=== PATIENT | female | born 1945 | race Caucasian/White ===

== ENCOUNTER 2021-11-08 05:23 | Inpatient (IN) | payer MEDICARE ==
--- NOTE | 2021-11-08 06:40 | XR ---
EXAM: XR Chest, 1 View CLINICAL HISTORY: ITS.REASON XR Reason: Weakness TECHNIQUE: Frontal view of the chest. COMPARISON: No relevant prior studies available. FINDINGS: Lungs: Mild to moderate peribronchial thickening about the central bronchi. Low lung volumes. No consolidation. Pleural space: Unremarkable. No pneumothorax. Heart: Unremarkable. No cardiomegaly. Mediastinum: Unremarkable. Bones/joints: Unremarkable. IMPRESSION: Findings concerning for bronchitis, which may be infectious or inflammatory etiologies.
[2021-11-08] MEDS ORDERED: fentaNYL (PF) 50 MCG/ML 2 ML AMP IVP STA (07:57)
[2021-11-08] MEDS ORDERED: ONDANSETRON 4 MG/2 ML VIAL IVP STA (08:21)
[2021-11-08] MEDS: MIDODRINE 5 MG TAB PO SCH ×2 (08:42→20:15)
[2021-11-08 09:07] LABS: Anisocytosis Slight; Basophils # (A) 0.1 k/uL (0-0.2); Basophils % (A) 0 %; Eosinophils # (A) 0.1 k/uL (0-0.7); Eosinophils % (A) 0 %; HCT 35.7 % (34.0-46.0); Hypochromasia Moderate; Lymphocytes # (A) 1.5 k/uL (1.0-4.8); Lymphocytes % (A) 9 %; MCH 26.5 pg (25.0-35.0); MCHC 30.8 g/dL (31.0-37.0); MCV 86.1 fL (80.0-100.0); Mean Platelet Volume 8.2; Microcytosis Slight; Monocytes # (A) 0.8 k/uL (0-1.0); Monocytes % (A) 5 %; Neutrophils # (A) 13.7 k/uL (1.3-7.7); Neutrophils % (A) 84 %; Platelet Count 373 k/uL (150-450); RBC 4.15 m/uL (3.80-5.40); RDW 19.3 % (11.5-15.5); WBC 16.4 k/uL (3.8-10.6)
--- NOTE | 2021-11-08 10:47 | ED ---
Weakness HPI - General Chief complaint: Weakness Stated complaint: Weakness, Pain all over Time Seen by Provider: 11/08/21 07:07 Source: patient, family Mode of arrival: wheelchair - History of Present Illness Initial comments: 76-year-old female with past medical history of congestive heart failure, sick sinus syndrome, diabetes, hypothyroid presents the emergency department a ccompanied by her niece. The patient was hospitalized for a month in [place]. She was on a ventilator for exacerbation of heart failure. She had shock and therefore had a central line and was on pressors. Patient then was sent to a rehab facility. Patient called her family members and stated that she was not being taken care of. She was developing bedsores. Family drove to [place] and removed her from the nursing facility. They drove her across the country. They were did have the patient lives an independent apartment however they quickly realized that the patient was unable to ambulate and had incontinence. The patient is completely unable to take care of herself. She was supposed to be taking several medications including Midrin however the patient has not had any of her medications since Saturday. Family requesting assistance and care. - Related Data Home Medications Medication Instructions Recorded Confirmed Acetaminophen [Tylenol] 650 mg PO Q6H PRN 11/08/21 11/08/21 Albuterol Nebulized [Ventolin 1.25 mg INHALATION RT-Q4H PRN 11/08/21 11/08/21 Nebulized (Accuneb)] Docusate [Colace] 100 mg PO HS 11/08/21 11/08/21 Levothyroxine Sodium [Synthroid] 50 mcg PO DAILY 11/08/21 11/08/21 Magnesium Hydroxide [Milk of 2,400 mg PO DAILY PRN 11/08/21 11/08/21 Magnesia] Melatonin 6 mg PO HS 11/08/21 11/08/21 Midodrine [ProAmatine] 5 mg PO AC-TID 11/08/21 11/08/21 Na Phos,M-B/Na Phos,Di-Ba [Fleet 133 ml RECTAL DAILY PRN 11/08/21 11/08/21 Adult] Nystatin 100,000 Unit/gm Powd 1 applic TOPICAL DAILY 11/08/21 11/08/21 [Mycostatin Powder] Ondansetron [Zofran] 4 mg PO Q6H PRN 11/08/21 11/08/21 Pantoprazole Sodium [Protonix] 40 mg PO Q12H 11/08/21 11/08/21 Sennosides [Senokot] 8.6 mg PO HS 11/08/21 11/08/21 bisacodyL [Dulcolax] 10 mg RECTAL DAILY PRN 11/08/21 11/08/21 polyethylene glycoL 3350 [Miralax] 17 gm PO DAILY 11/08/21 11/08/21 Allergies Allergy/AdvReac Type Severity Reaction Status Date / Time Penicillins Allergy Itching Verified 11/08/21 13:55 hydromorphone [From Dilaudid] AdvReac Confusion Verified 11/08/21 13:55 Review of Systems ROS Statement: Those systems with pertinent positive or pertinent negative responses have been documented in the HPI. ROS Other: All systems not noted in ROS Statement are negative. Past Medical History Past Medical History: Asthma, Heart Failure, Diabetes Mellitus, Hypertension, Pulmonary Embolus (PE), Respiratory Disorder, Thyroid Disorder History of Any Multi-Drug Resistant Organisms: None Reported Past Surgical History: Appendectomy, Cholecystectomy, Hysterectomy, Uterine Ablation Additional Past Surgical History / Comment(s): Bladder lift Past Psychological History: No Psychological Hx Reported Smoking Status: Never smoker Past Alcohol Use History: Rare Past Drug Use History: None Reported General Exam General appearance: alert, in no apparent distress Head exam: Present: atraumatic, normocephalic, normal inspection Eye exam: Present: normal appearance, PERRL, EOMI. Absent: scleral icterus, conjunctival injection, periorbital swelling ENT exam: Present: normal exam, mucous membranes moist Neck exam: Present: normal inspection. Absent: tenderness, meningismus, lympha denopathy Respiratory exam: Present: decreased breath sounds. Absent: respiratory distress, wheezes, rales, rhonchi, stridor Cardiovascular Exam: Present: regular rate, normal rhythm, normal heart sounds. Absent: systolic murmur, diastolic murmur, rubs, gallop, clicks GI/Abdominal exam: Present: soft, normal bowel sounds. Absent: distended, tenderness, guarding, rebound, rigid Extremities exam: Present: normal inspection, full ROM, normal capillary refill. Absent: tenderness, pedal edema, joint swelling, calf tenderness Back exam: Present: normal inspection Neurological exam: Present: alert, oriented X3, CN II-XII intact Psychiatric exam: Present: normal affect, normal mood Skin exam: Present: warm, dry, intact, normal color. Absent: rash Course Vital Signs 11/08/21 11/08/21 11/08/21 06:13 07:38 08:28 Temperature 97.5 F L Pulse Rate 90 69 86 Respiratory 18 20 18 Rate Blood Pressure 91/68 97/40 106/47 O2 Sat by Pulse 96 95 96 Oximetry 11/08/21 11/08/21 11/08/21 09:45 10:00 12:07 Temperature 98 F Pulse Rate 80 72 78 Respiratory 18 18 18 Rate Blood Pressure 87/67 94/52 102/57 O2 Sat by Pulse 97 96 96 Oximetry 11/08/21 11/08/21 13:26 17:53 Temperature Pulse Rate 71 90 Respiratory 18 18 Rate Blood Pressure 90/52 90/62 O2 Sat by Pulse 96 91 L Oximetry EKG Findings - EKG Comments: EKG Findings:: EKG demonstrates A. fib with a controlled rate of 100. QRS 121. QTC of 425. Left bundle branch block. No acute ST segment elevations Medical Decision Making - Medical Decision Making Upon arrival patient was placed in room trauma 3. A thorough history and physical exam was performed. I did review the patient's chart that she did bring with her from her nursing facility. IV is established and laboratory studies were conducted which reveal a white count of 16.4. Sodium 132. Creatinine 4.5. Troponin is 0.044. Chest x-ray demonstrates findings concerning for bronchitis. Patient is dosed her Midrin and 2 g of magnesium for her magnesium level of 1.2. Recommended admission and spoke with Dr. Jaimes who agreed to admit the patient. - Lab Data Result diagrams: 11/15/21 08:40 11/12/21 06:20 Lab Results 11/08/21 11/08/21 11/08/21 Range/Units 08:35 08:42 08:42 WBC 16.4 H (3.8-10.6) k/uL RBC 4.15 (3.80-5.40) m/uL Hgb 11.0 L (11.4-16.0) gm/dL Hct 35.7 (34.0-46.0) % MCV 86.1 (80.0-100.0) fL MCH 26.5 (25.0-35.0) pg MCHC 30.8 L (31.0-37.0) g/dL RDW 19.3 H (11.5-15.5) % Plt Count 373 (150-450) k/uL MPV 8.2 Neutrophils % 84 % Lymphocytes % 9 % Monocytes % 5 % Eosinophils % 0 % Basophils % 0 % Neutrophils # 13.7 H (1.3-7.7) k/uL Lymphocytes # 1.5 (1.0-4.8) k/uL Monocytes # 0.8 (0-1.0) k/uL Eosinophils # 0.1 (0-0.7) k/uL Basophils # 0.1 (0-0.2) k/uL Hypochromasia Moderate Anisocytosis Slight Microcytosis Slight PT (9.0-12.0) sec INR (<1.2) APTT (22.0-30.0) sec Sodium (137-145) mmol/L Potassium (3.5-5.1) mmol/L Chloride (98-107) mmol/L Carbon Dioxide (22-30) mmol/L Anion Gap mmol/L BUN (7-17) mg/dL Creatinine (0.52-1.04) mg/dL Est GFR (CKD-EPI)AfAm (>60 ml/min/1.73 sqM) Est GFR (CKD-EPI)NonAf (>60 ml/min/1.73 sqM) Glucose (74-99) mg/dL Plasma Lactic Acid Harley 1.5 (0.7-2.0) mmol/L Calcium (8.4-10.2) mg/dL Magnesium (1.6-2.3) mg/dL Total Bilirubin (0.2-1.3) mg/dL AST (14-36) U/L ALT (4-34) U/L Alkaline Phosphatase (38-126) U/L Troponin I (0.000-0.034) ng/mL NT-Pro-B Natriuret Pep pg/mL Total Protein (6.3-8.2) g/dL Albumin (3.5-5.0) g/dL Coronavirus (PCR) Not Detected (Not Detectd) 11/08/21 11/08/21 11/08/21 Range/Units 08:42 08:42 10:45 WBC (3.8-10.6) k/uL RBC (3.80-5.40) m/uL Hgb (11.4-16.0) gm/dL Hct (34.0-46.0) % MCV (80.0-100.0) fL MCH (25.0-35.0) pg MCHC (31.0-37.0) g/dL RDW (11.5-15.5) % Plt Count (150-450) k/uL MPV Neutrophils % % Lymphocytes % % Monocytes % % Eosinophils % % Basophils % % Neutrophils # (1.3-7.7) k/uL Lymphocytes # (1.0-4.8) k/uL Monocytes # (0-1.0) k/uL Eosinophils # (0-0.7) k/uL Basophils # (0-0.2) k/uL Hypochromasia Anisocytosis Microcytosis PT 11.1 (9.0-12.0) sec INR 1.0 (<1.2) APTT 23.5 (22.0-30.0) sec Sodium (137-145) mmol/L Potassium (3.5-5.1) mmol/L Chloride (98-107) mmol/L Carbon Dioxide (22-30) mmol/L Anion Gap mmol/L BUN (7-17) mg/dL Creatinine (0.52-1.04) mg/dL Est GFR (CKD-EPI)AfAm (>60 ml/min/1.73 sqM) Est GFR (CKD-EPI)NonAf (>60 ml/min/1.73 sqM) Glucose (74-99) mg/dL Plasma Lactic Acid Harley (0.7-2.0) mmol/L Calcium (8.4-10.2) mg/dL Magnesium (1.6-2.3) mg/dL Total Bilirubin (0.2-1.3) mg/dL AST (14-36) U/L ALT (4-34) U/L Alkaline Phosphatase (38-126) U/L Troponin I 0.044 H* (0.000-0.034) ng/mL NT-Pro-B Natriuret Pep 909 pg/mL Total Protein (6.3-8.2) g/dL Albumin (3.5-5.0) g/dL Coronavirus (PCR) (Not Detectd) 11/08/21 Range/Units 10:45 WBC (3.8-10.6) k/uL RBC (3.80-5.40) m/uL Hgb (11.4-16.0) gm/dL Hct (34.0-46.0) % MCV (80.0-100.0) fL MCH (25.0-35.0) pg MCHC (31.0-37.0) g/dL RDW (11.5-15.5) % Plt Count (150-450) k/uL MPV Neutrophils % % Lymphocytes % % Monocytes % % Eosinophils % % Basophils % % Neutrophils # (1.3-7.7) k/uL Lymphocytes # (1.0-4.8) k/uL Monocytes # (0-1.0) k/uL Eosinophils # (0-0.7) k/uL Basophils # (0-0.2) k/uL Hypochromasia Anisocytosis Microcytosis PT (9.0-12.0) sec INR (<1.2) APTT (22.0-30.0) sec Sodium 132 L (137-145) mmol/L Potassium 4.3 (3.5-5.1) mmol/L Chloride 86 L (98-107) mmol/L Carbon Dioxide 31 H (22-30) mmol/L Anion Gap 15 mmol/L BUN 85 H (7-17) mg/dL Creatinine 4.52 H (0.52-1.04) mg/dL Est GFR (CKD-EPI)AfAm 10 (>60 ml/min/1.73 sqM) Est GFR (CKD-EPI)NonAf 9 (>60 ml/min/1.73 sqM) Glucose 120 H (74-99) mg/dL Plasma Lactic Acid Harley (0.7-2.0) mmol/L Calcium 9.0 (8.4-10.2) mg/dL Magnesium 1.2 L (1.6-2.3) mg/dL Total Bilirubin 0.6 (0.2-1.3) mg/dL AST 35 (14-36) U/L ALT 21 (4-34) U/L Alkaline Phosphatase 85 (38-126) U/L Troponin I (0.000-0.034) ng/mL NT-Pro-B Natriuret Pep pg/mL Total Protein 7.5 (6.3-8.2) g/dL Albumin 4.0 (3.5-5.0) g/dL Coronavirus (PCR) (Not Detectd) Disposition Clinical Impression: TESS (acute kidney injury), Chest pain, Hypomagnesemia Disposition: ADMITTED IP TO THIS [facility] Condition: Stable Is patient prescribed a controlled substance at d/c from ED?: No Time of Disposition: 12:30 Decision to Admit Reason: Admit from EC Decision Date: 11/08/21 Decision Time: 12:30
[2021-11-08 11:35] LABS: Magnesium 1.2 mg/dL (1.6-2.3); Potassium 4.3 mmol/L (3.5-5.1); Total Bilirubin 0.6 mg/dL (0.2-1.3); Total Protein 7.5 g/dL (6.3-8.2)
[2021-11-08 11:51] LABS: Partial Thromboplastin Time 23.5 sec (22.0-30.0); Prothrombin Time 11.1 sec (9.0-12.0)
[2021-11-08] MEDS ORDERED: MAGNESIUM SULFATE-D5W PMX 1 GM in DEXTROSE/WATER 1 100ML.BAG IVPB ONE ×2 (11:58→19:00)
[2021-11-08] MEDS ORDERED: NALOXONE 0.4 MG/ML 1 ML VIAL IV PRN ×2 (12:30→17:06)
[2021-11-08] MEDS ORDERED: MAGNESIUM HYDROXIDE 2,400 MG/10 ML CUP PO PRN (15:37)
[2021-11-08] MEDS ORDERED: bisacodyL 10 MG SUPP RECTAL PRN (15:37)
[2021-11-08] MEDS ORDERED: NA PHOS,M-B/NA PHOS,DI-BA 133 ML ENEMA RECTAL PRN (15:37)
[2021-11-08] MEDS ORDERED: PANTOPRAZOLE 40 MG TABLET PO SCH (16:00)
--- NOTE | 2021-11-08 17:11 | P.HPIM ---
History of Present Illness H&P Date: 11/08/21 Chief Complaint: weakness 76-year-old female with past medical history of paroxysmal atrial fibrillation, congestive heart failure, sick sinus syndrome, diabetes, hypothyroid presents the emergency department accompanied by her niece. The patient was hospitalized for a month in [place]. After that she went to rehab. According to the family members they thought that she was not treated well in the rehab in [place] so they brought her to [place] by car from [place]. She was developing bedsores in the rehab..They quickly realized that the patient was unable to ambulate and had incontinence. She was completely unable to take care of herself. Therefore she was brought to the emergency department During the recent hospitalization she was treated for acute hypoxemic respiratory failure secondary to combination of congestive heart failure, pneumonia, obesity hypoventilation syndrome and tracheomalacia. Patient was intubated on 09/15 extubated on 09/20. She was hypotensive, requiring central line placement and pressors. She had an echocardiogram that showed normal EF. According to the records she was treated with steroids, antibiotics and bronchodilators. Patient was also diagnosed with right mandibular tooth infection, acute colitis and UTI. Laboratory evaluation in the emergency department revealed WBC count 16,000, sodium 132, creatinine 4.5, magnesium 1.2, troponin 0.044 and 0.040 upon repeat. According to the records her creatinine was normal during the last hospitalization. Past Medical History Past Medical History: Asthma, Heart Failure, Diabetes Mellitus, Hypertension, Pulmonary Embolus (PE), Respiratory Disorder, Thyroid Disorder History of Any Multi-Drug Resistant Organisms: None Reported Past Surgical History: Appendectomy, Cholecystectomy, Hysterectomy, Uterine Ablation Additional Past Surgical History / Comment(s): Bladder lift Past Psychological History: No Psychological Hx Reported Smoking Status: Never smoker Past Alcohol Use History: Rare Past Drug Use History: None Reported Medications and Allergies Home Medications Medication Instructions Recorded Confirmed Type Acetaminophen [Tylenol] 650 mg PO Q6H PRN 11/08/21 11/08/21 History Albuterol Nebulized [Ventolin 1.25 mg INHALATION RT-Q4H PRN 11/08/21 11/08/21 History Nebulized (Accuneb)] Docusate [Colace] 100 mg PO HS 11/08/21 11/08/21 History Levothyroxine Sodium [Synthroid] 50 mcg PO DAILY 11/08/21 11/08/21 History Magnesium Hydroxide [Milk of 2,400 mg PO DAILY PRN 11/08/21 11/08/21 History Magnesia] Melatonin 6 mg PO HS 11/08/21 11/08/21 History Midodrine [ProAmatine] 5 mg PO AC-TID 11/08/21 11/08/21 History Na Phos,M-B/Na Phos,Di-Ba [Fleet 133 ml RECTAL DAILY PRN 11/08/21 11/08/21 History Adult] Nystatin 100,000 Unit/gm Powd 1 applic TOPICAL DAILY 11/08/21 11/08/21 History [Mycostatin Powder] Ondansetron [Zofran] 4 mg PO Q6H PRN 11/08/21 11/08/21 History Pantoprazole Sodium [Protonix] 40 mg PO Q12H 11/08/21 11/08/21 History Sennosides [Senokot] 8.6 mg PO HS 11/08/21 11/08/21 History bisacodyL [Dulcolax] 10 mg RECTAL DAILY PRN 11/08/21 11/08/21 History polyethylene glycoL 3350 [Miralax] 17 gm PO DAILY 11/08/21 11/08/21 History Allergies Allergy/AdvReac Type Severity Reaction Status Date / Time Penicillins Allergy Itching Verified 11/08/21 13:55 hydromorphone [From Dilaudid] AdvReac Confusion Verified 11/08/21 13:55 Physical Exam Vitals: Vital Signs Temp Pulse Resp BP Pulse Ox 11/08/21 13:26 71 18 90/52 96 11/08/21 12:07 98 F 78 18 102/57 96 11/08/21 10:00 72 18 94/52 96 11/08/21 09:45 80 18 87/67 97 11/08/21 08:28 86 18 106/47 96 11/08/21 07:38 69 20 97/40 95 11/08/21 06:13 97.5 F L 90 18 91/68 96 Intake and Output 11/08/21 11/08/21 11/08/21 06:59 14:59 22:59 Other: Weight 89.63 kg Constitutional: No acute distress, conversant, pleasant Eyes:Anicteric sclerae, moist conjunctiva, no lid-lag, PERRLA, ENMT: Oropharynx clear, no erythema, exudates Neck: Supple, FROM, no masses, or JVD, No carotid bruits, No thyromegaly Lungs: Clear to auscultation, Clear to percussion, Normal respiratory effort, no accessory muscle use Cardiovascular: Heart regular in rate and rhythm, No murmurs, gallops, or rubs, No peripheral edema Abdominal: Soft, Nontender, no guarding, rebound or rigidity, Normoactive bowel sounds, No hepatomegaly, No splenomegaly, No palpable mass Skin: Normal temperature, tone, texture, turgor, no induration, No subcutaneous nodules, No rash, lesions, No ulcers Extremities: No digital cyanosis, No clubbing, Pedal pulses intact and symmetrical, Radial pulses intact and symmetrical, No calf tenderness Psychiatric: Alert and oriented to person, place and time, appropriate affect, intact judgement Neuro: Muscles Strength 5/5 in all 4 extremities, Sensation to light touch grossly present throughout, Cranial nerves II-XII grossly intact, no focal sensory deficits Results CBC & Chem 7: 11/08/21 08:42 11/08/21 10:45 Labs: Abnormal Lab Results - Last 24 Hours (Table) 11/08/21 11/08/21 11/08/21 Range/Units 08:42 08:42 10:45 WBC 16.4 H (3.8-10.6) k/uL Hgb 11.0 L (11.4-16.0) gm/dL MCHC 30.8 L (31.0-37.0) g/dL RDW 19.3 H (11.5-15.5) % Neutrophils # 13.7 H (1.3-7.7) k/uL Sodium 132 L (137-145) mmol/L Chloride 86 L (98-107) mmol/L Carbon Dioxide 31 H (22-30) mmol/L BUN 85 H (7-17) mg/dL Creatinine 4.52 H (0.52-1.04) mg/dL Glucose 120 H (74-99) mg/dL Magnesium 1.2 L (1.6-2.3) mg/dL Troponin I 0.044 H* (0.000-0.034) ng/mL 11/08/21 Range/Units 13:13 WBC (3.8-10.6) k/uL Hgb (11.4-16.0) gm/dL MCHC (31.0-37.0) g/dL RDW (11.5-15.5) % Neutrophils # (1.3-7.7) k/uL Sodium (137-145) mmol/L Chloride (98-107) mmol/L Carbon Dioxide (22-30) mmol/L BUN (7-17) mg/dL Creatinine (0.52-1.04) mg/dL Glucose (74-99) mg/dL Magnesium (1.6-2.3) mg/dL Troponin I 0.040 H* (0.000-0.034) ng/mL Assessment and Plan Plan: Acute kidney injury Likely secondary to the travel/dehydration IV fluids Consult nephrology Follow renal function in a.m. Sick sinus syndrome, history of atrial fibrillation Unclear why patient is not on anticoagulation Outpatient cardiology follow-up Heart rate currently stable Diabetes type 2 Hold oral hypoglycemics Sliding-scale insulin General weakness/adult failure to thrive PT and OT Chronic Asthma Hypertension, Hypothyroidism All stable Resume meds DVT prophylaxis Heparin subcu Admit to inpatient, expected length of stay more than 2 midnights
[2021-11-08] MEDS: SODIUM CHLORIDE 0.9% 1,000 ML IV SCH (20:15)
[2021-11-08] MEDS: PANTOPRAZOLE 40 MG TABLET PO SCH (20:15)
[2021-11-08 20:59] LABS: Glucose,Whole Blood 105 mg/dL (70-110)
[2021-11-08] MEDS: MELATONIN 3 MG TABLET PO SCH (21:46)
[2021-11-08] MEDS: DOCUSATE 100 MG CAP PO SCH (21:46)
[2021-11-08] MEDS: SENNOSIDES 8.6 MG TAB PO SCH (21:46)
[2021-11-08] MEDS ORDERED: SODIUM CHLORIDE 0.9% 500 ML 500 ML IV ONE (22:41)
[2021-11-09] MEDS ORDERED: HEPARIN SODIUM,PORCINE 5,000 UNIT/ML 1 ML VIAL SQ SCH
[2021-11-09] MEDS: HEPARIN SODIUM,PORCINE/PF 5,000 UNIT/0.5 ML SYRINGE SQ SCH ×4 (00:37→23:53)
[2021-11-09 05:53] LABS: Glucose,Whole Blood 99 mg/dL (70-110)
[2021-11-09] MEDS: PANTOPRAZOLE 40 MG TABLET PO SCH ×2 (06:12→17:57)
[2021-11-09] MEDS: LEVOTHYROXINE 50 MCG TAB PO SCH (06:12)
[2021-11-09] MEDS: MIDODRINE 5 MG TAB PO SCH ×3 (06:12→17:59)
[2021-11-09] MEDS: SODIUM CHLORIDE 0.9% 1,000 ML IV SCH ×3 (07:02→20:53)
--- NOTE | 2021-11-09 08:45 | US ---
EXAMINATION TYPE: US kidneys/renal and bladder DATE OF EXAM: 11/09/2021 COMPARISON: No relevant comparison studies at this location. CLINICAL HISTORY: tess. TESS EXAM MEASUREMENTS: Right Kidney: 11.1 x 6.5 x 5.4 cm Left Kidney: 10.9 x 5.5 x 4.9 cm Exam is very limited due to body habitus and overlying bowel gas. Right Kidney: Hypoechoic area seen with some internal echoes lower pole: 1.8 x 1.9 x 1.8 cm. Hyperech oic focus seen on the border of hypoechoic area: 0.4 x 0.3 x 0.1 cm. Left Kidney: Limited visibility. Hypoechoic area seen laterally 1.3 x 1.2 x 1.0 cm. Bladder: Appears anechoic. Anechoic area seen extending toward the left of the bladder-possible diver ticulum?- measures 1.7 x 1.3 x 1.5 cm. Bilateral Jets seen: Not during exam. IMPRESSION: 1. Another may be a cyst with calcification within nor within the wall of the right kidney. Small cys t may be on the left kidney. 2. Suspected urinary bladder diverticulum. 3. Consider CT for additional evaluation
[2021-11-09] MEDS: polyethylene glycoL 3350 17 GM POWD.PACK PO SCH (09:10)
[2021-11-09] MEDS ORDERED: SODIUM CHLORIDE 0.9% 1,000 ML IV ONE (09:16)
--- NOTE | 2021-11-09 09:17 | P.NPCON ---
History of Present Illness - Reason for Consult acute renal failure - History of Present Illness Reason for consultation: Acute kidney injury History of present illness: Patient is a 76-year-old female seen in consultation for acute kidney injury. Unknown baseline renal function. Creatinine was 4.21 admission yesterday. Patient was recently admitted with septic shock and respiratory failure in [place]. She subsequently went to rehab facility but left the rehab as she was not happy with the care. Patient then came to [place] and came to the hospital as she was unable to care for herself. Patient has been voiding. She is incontinent. Blood pressure has been low in the systolic 70s. She did receive 1 L bolus of normal saline in the ER. However she did not receive much fluids overnight due to no IV access. She now does have an IV access and is receiving normal saline at 1 25 mL an hour. I don't see any nonsteroidals or diuretics in her home medication list. States she takes Tylenol if needed. No history of diabetes. States she had a daughter who was a diabetic and required renal replacement therapy but has now . Vital signs are stable. Blood pressure in the lower side. General: Awake. No acute distress. HEENT: Head exam is unremarkable. LUNGS: Breath sounds decreased. HEART: Rate and Rhythm are regular. ABDOMEN: Soft, no distention. EXTREMITITES: No edema. Past Medical History Past Medical History: Asthma, Heart Failure, Diabetes Mellitus, Hypertension, Pulmonary Embolus (PE), Respiratory Disorder, Thyroid Disorder History of Any Multi-Drug Resistant Organisms: None Reported Past Surgical History: Appendectomy, Cholecystectomy, Hysterectomy, Uterine Ablation Additional Past Surgical History / Comment(s): Bladder lift Past Anesthesia/Blood Transfusion Reactions: No Reported Reaction Past Psychological History: No Psychological Hx Reported Smoking Status: Never smoker Past Alcohol Use History: Rare Past Drug Use History: None Reported Medications and Allergies Home Medications Medication Instructions Recorded Confirmed Type Acetaminophen [Tylenol] 650 mg PO Q6H PRN 11/08/21 11/08/21 History Albuterol Nebulized [Ventolin 1.25 mg INHALATION RT-Q4H PRN 11/08/21 11/08/21 History Nebulized (Accuneb)] Docusate [Colace] 100 mg PO HS 11/08/21 11/08/21 History Levothyroxine Sodium [Synthroid] 50 mcg PO DAILY 11/08/21 11/08/21 History Magnesium Hydroxide [Milk of 2,400 mg PO DAILY PRN 11/08/21 11/08/21 History Magnesia] Melatonin 6 mg PO HS 11/08/21 11/08/21 History Midodrine [ProAmatine] 5 mg PO AC-TID 11/08/21 11/08/21 History Na Phos,M-B/Na Phos,Di-Ba [Fleet 133 ml RECTAL DAILY PRN 11/08/21 11/08/21 History Adult] Nystatin 100,000 Unit/gm Powd 1 applic TOPICAL DAILY 11/08/21 11/08/21 History [Mycostatin Powder] Ondansetron [Zofran] 4 mg PO Q6H PRN 11/08/21 11/08/21 History Pantoprazole Sodium [Protonix] 40 mg PO Q12H 11/08/21 11/08/21 History Sennosides [Senokot] 8.6 mg PO HS 11/08/21 11/08/21 History bisacodyL [Dulcolax] 10 mg RECTAL DAILY PRN 11/08/21 11/08/21 History polyethylene glycoL 3350 [Miralax] 17 gm PO DAILY 11/08/21 11/08/21 History Allergies Allergy/AdvReac Type Severity Reaction Status Date / Time Penicillins Allergy Itching Verified 11/08/21 13:55 hydromorphone [From Dilaudid] AdvReac Confusion Verified 11/08/21 13:55 Physical Exam Vitals: Vital Signs Temp Pulse Pulse Pulse Resp BP BP 11/09/21 08:44 98.3 F 74 17 98/51 11/09/21 03:49 97.2 F L 60 14 78/52 11/09/21 00:00 97.1 F L 60 14 74/58 11/08/21 22:00 64 72/42 11/08/21 21:00 97.1 F L 64 14 78/42 11/08/21 20:00 64 14 11/08/21 17:53 90 18 90/62 11/08/21 13:26 71 18 90/52 11/08/21 12:07 98 F 78 18 102/57 11/08/21 10:00 72 18 94/52 11/08/21 09:45 80 18 87/67 Pulse Ox 11/09/21 08:44 97 11/09/21 03:49 97 11/09/21 00:00 93 L 11/08/21 22:00 11/08/21 21:00 92 L 11/08/21 20:00 11/08/21 17:53 91 L 11/08/21 13:26 96 11/08/21 12:07 96 11/08/21 10:00 96 11/08/21 09:45 97 Intake and Output 11/08/21 11/09/21 11/09/21 22:59 06:59 14:59 Intake Total 550 20 Balance 550 20 Intake: IV 10 20 Invasive Line 1 10 Invasive Line 2 10 Invasive Line 3 10 Oral 540 Other: Voiding Method External Catheter Diaper Weight 89.63 kg Results - Lab Results Most recent lab results Calcium 9.0 mg/dL (8.4-10.2) 11/08/21 10:45 Magnesium 1.2 mg/dL (1.6-2.3) L 11/08/21 10:45 11/08/21 08:42 11/08/21 10:45 Assessment and Plan Plan: Assessment: 1. Acute kidney injury secondary to ATN secondary to hypotension. Creatinine 4.52 admission. Unknown baseline renal function. No hydronephrosis noted on kidney ultrasound. 2. Recent sepsis in September 2021. 3. History of A. fib. 4. History of CHF. Unknown ejection fraction. 5. Hypomagnesemia from poor intake. Replaced. Plan: Maintain IV fluids. Strict is and os. Follow-up cortisol level. 1 L bolus normal saline now. Avoid nephrotoxins. Continue to monitor renal function and urine output. Follow-up morning labs. Check UA. Increase dose of midodrine. Thank you for the consultation. I will continue to follow the patient with you during her hospital stay.
[2021-11-09 09:18] LABS: Amorphous Sediment,Urine Rare /hpf; Appearance,Urine Cloudy (Clear); Bacteria,Urine Many /hpf; Bilirubin,Urine 1+ (Negative); Blood,Urine Trace (Negative); Color,Urine Yellow; Glucose,Urine (UA) Negative (Negative); Hyaline Casts,Urine 12 /lpf (0-2); Ketones,Urine Negative (Negative); Leukocyte Esterase,Urine Large (Negative); Mucus,Urine Rare /hpf; Nitrite,Urine Negative (Negative); PH, Urine 5.5 (5.0-8.0); Protein,Urine 1+ (Negative); RBC,Urine 11 /hpf (0-5); Specific Gravity,Urine 1.017 (1.001-1.035); Squamous Epithelial Cell,Urine 2 /hpf (0-4); WBC,Urine 79 /hpf (0-5)
[2021-11-09 10:48] LABS: Anisocytosis Slight; Basophils # (A) 0.2 k/uL (0-0.2); Basophils % (A) 2 %; Eosinophils # (A) 0.1 k/uL (0-0.7); Eosinophils % (A) 1 %; HCT 31.6 % (34.0-46.0); HGB 9.6 gm/dL (11.4-16.0); Hypochromasia Marked; Lymphocytes # (A) 0.8 k/uL (1.0-4.8); Lymphocytes % (A) 8 %; MCH 26.9 pg (25.0-35.0); MCHC 30.5 g/dL (31.0-37.0); MCV 88.4 fL (80.0-100.0); Mean Platelet Volume 8.4; Monocytes # (A) 0.5 k/uL (0-1.0); Monocytes % (A) 5 %; Neutrophils # (A) 8.4 k/uL (1.3-7.7); Neutrophils % (A) 83 %; Platelet Count 264 k/uL (150-450); RBC 3.58 m/uL (3.80-5.40); RDW 19.2 % (11.5-15.5); WBC 10.1 k/uL (3.8-10.6)
[2021-11-09 11:02] LABS: Calcium 7.5 mg/dL (8.4-10.2); Magnesium 2.1 mg/dL (1.6-2.3); Phosphorus 3.2 mg/dL (2.5-4.5); Potassium 3.9 mmol/L (3.5-5.1)
[2021-11-09 12:05] LABS: Glucose,Whole Blood 94 mg/dL (70-110)
[2021-11-09] MEDS: oxyCODONE-APAP 5-325MG 1 EACH TAB PO PRN ×2 (12:05→23:53)
--- NOTE | 2021-11-09 14:09 | IR ---
PICC LINE PLACEMENT: HISTORY: Infection requiring long-term antibiotic therapy PROCEDURE: Ultrasound and fluoroscopic guidance of PICC line placement. COMPLICATIONS: None ANESTHESIA: 1. 1% Lidocaine locally. FINDINGS/TECHNIQUE: The procedure was explained to the patient. The risks, complications, benefits and alternatives were discussed and any questions were answered. Informed consent was obtained. The patient was placed supine on the fluoroscopic table and prepped and draped in the usual sterile fash ion. Utilizing a 21 gauge needle and sonographic and fluoroscopic guidance, access in the left basi lic vein was achieved and there is placement of a 0.018 guidewire. The vein is patent. A 4-F sheath was placed over the guidewire. The guidewire and dilator were removed and a 4-F. PICC line was plac ed through the sheath with the tip at the level of the SVC. The sheath was removed, the catheter was flushed and sutured into position. The patient was stable throughout the procedure and remained sta ble upon discharge from the Department of Radiology. The vein puncture was patent under ultrasound. A avelar scale image was obtained to document patency of the vein punctured. All elements of the maximal barrier technique were utilized. FLUOROSCOPY TIME: 0.1 minutes and one image submitted. IMPRESSION: Successful PICC line placement under ultrasound and fluoroscopic guidance.
--- NOTE | 2021-11-09 14:43 | P.PN ---
Subjective Progress Note Date: 11/09/21 Principal diagnosis: weakness Patient is able to move her legs today. She is feeling stronger. No chest pain or sob. No n/v. no fevers. She did admit to dysuria prior to rios cath insertion. Objective - Vital Signs Vital signs: Vital Signs Temp 97.8 F 11/09/21 11:59 Pulse 67 11/09/21 11:59 Resp 24 11/09/21 11:59 BP 95/45 11/09/21 11:59 Pulse Ox 94 L 11/09/21 11:59 FiO2 Intake & Output 11/08/21 11/09/21 11/09/21 18:59 06:59 18:59 Intake Total 570 1060 Balance 570 1060 Weight 89.63 kg 89.63 kg Intake: IV 30 Invasive Line 1 10 Invasive Line 2 10 Invasive Line 3 10 Oral 540 1060 Other: Voiding Method Diaper Indwelling Catheter - Exam Constitutional: No acute distress, conversant, pleasant Eyes:Anicteric sclerae, moist conjunctiva, no lid-lag, PERRLA, ENMT: Oropharynx clear, no erythema, exudates Neck: Supple, FROM, no masses, or JVD, No carotid bruits, No thyromegaly Lungs: Clear to auscultation, Clear to percussion, Normal respiratory effort, no accessory muscle use Cardiovascular: Heart regular in rate and rhythm, No murmurs, gallops, or rubs, No peripheral edema Abdominal: Soft, Nontender, no guarding, rebound or rigidity, Normoactive bowel sounds, No hepatomegaly, No splenomegaly, No palpable mass Skin: Normal temperature, tone, texture, turgor, no induration, No subcutaneous nodules, No rash, lesions, No ulcers Extremities: No digital cyanosis, No clubbing, Pedal pulses intact and symmetrical, Radial pulses intact and symmetrical, No calf tenderness Psychiatric: Alert and oriented to person, place and time, appropriate affect, intact judgement Neuro: general weakness - Labs CBC & Chem 7: 11/09/21 10:06 11/09/21 10:33 Labs: Abnormal Lab Results - Last 24 Hours (Table) 11/08/21 11/09/21 11/09/21 Range/Units 16:28 09:04 10:06 RBC 3.58 L (3.80-5.40) m/uL Hgb 9.6 L (11.4-16.0) gm/dL Hct 31.6 L (34.0-46.0) % MCHC 30.5 L (31.0-37.0) g/dL RDW 19.2 H (11.5-15.5) % Neutrophils # 8.4 H (1.3-7.7) k/uL Lymphocytes # 0.8 L (1.0-4.8) k/uL Sodium (137-145) mmol/L Chloride (98-107) mmol/L BUN (7-17) mg/dL Creatinine (0.52-1.04) mg/dL Calcium (8.4-10.2) mg/dL Troponin I 0.053 H* (0.000-0.034) ng/mL Urine Appearance Cloudy H (Clear) Urine Protein 1+ H (Negative) Urine Blood Trace H (Negative) Urine Bilirubin 1+ H (Negative) Ur Leukocyte Esterase Large H (Negative) Urine RBC 11 H (0-5) /hpf Urine WBC 79 H (0-5) /hpf Amorphous Sediment Rare H (None) /hpf Urine Bacteria Many H (None) /hpf Hyaline Casts 12 H (0-2) /lpf Urine Mucus Rare H (None) /hpf 11/09/21 Range/Units 10:33 RBC (3.80-5.40) m/uL Hgb (11.4-16.0) gm/dL Hct (34.0-46.0) % MCHC (31.0-37.0) g/dL RDW (11.5-15.5) % Neutrophils # (1.3-7.7) k/uL Lymphocytes # (1.0-4.8) k/uL Sodium 132 L (137-145) mmol/L Chloride 92 L (98-107) mmol/L BUN 85 H (7-17) mg/dL Creatinine 3.49 H (0.52-1.04) mg/dL Calcium 7.5 L (8.4-10.2) mg/dL Troponin I (0.000-0.034) ng/mL Urine Appearance (Clear) Urine Protein (Negative) Urine Blood (Negative) Urine Bilirubin (Negative) Ur Leukocyte Esterase (Negative) Urine RBC (0-5) /hpf Urine WBC (0-5) /hpf Amorphous Sediment (None) /hpf Urine Bacteria (None) /hpf Hyaline Casts (0-2) /lpf Urine Mucus (None) /hpf Assessment and Plan Plan: Acute kidney injury Improving Likely secondary to the travel/dehydration IV fluids Nephrology following Follow renal function in a.m. Renal cysts on US Consult urology Sick sinus syndrome, history of atrial fibrillation Unclear why patient is not on anticoagulation Outpatient cardiology follow-up Heart rate currently stable Diabetes type 2 Controlled Hold oral hypoglycemics Sliding-scale insulin Hypomagnesemia Replaced General weakness/adult failure to thrive PT and OT Chronic Asthma Hypertension, Hypothyroidism All stable Resume meds DVT prophylaxis Heparin subcu
[2021-11-09] MEDS: ACETAMINOPHEN TAB 325 MG TAB PO PRN (15:16)
[2021-11-09 16:54] LABS: Glucose,Whole Blood 110 mg/dL (70-110)
[2021-11-09] MEDS: ONDANSETRON 4 MG/2 ML VIAL IVP PRN (18:00)
--- NOTE | 2021-11-09 19:43 | P.GSCN ---
History of Present Illness Consult date: 11/09/21 Reason for Consult: Renal cysts Requesting physician: Corwin Apple History of present illness: The patient is a 76-year-old white female with multiple medical problems, including atrial fibrillation, CHF, sick sinus syndrome, diabetes mellitus, and hypothyroidism. She was hospitalized for a month in [place] prior to returning to [place]. During that hospitalization she was treated for acute hypoxemic respiratory failure secondary to combination of congestive heart failure, pneumonia, obesity hypoventilation syndrome and tracheomalacia, requiring mechanical ventilation. She was hypotensive, requiring central line placement and vasopressors. She was also diagnosed with right mandibular tooth infection, acute colitis and a UTI. Current laboratory studies show renal insufficiency. Renal ultrasound was obtained. The kidneys were poorly visualized, but bilateral renal hypodensities were seen suggestive of cysts, one of which may be calcified. Additionally, ultrasound was suggestive of a bladder diverticulum. The patient denies any prior history of urolithiasis. She has required treatment for recurrent UTIs throughout her lifetime. This required hospitalization on 2 occasions when she was in her 20s. She currently has a Perez catheter in place to monitor urine output. She has not recently experienced dysuria, and she denies a history of hematuria. She has experienced urinary urgency incontinence. Review of Systems - Constitutional Reports weakness - Genitourinary Genitourinary: Reports urge incontinence Past Medical History Past Medical History: Asthma, Heart Failure, Diabetes Mellitus, Hypertension, Pulmonary Embolus (PE), Respiratory Disorder, Thyroid Disorder History of Any Multi-Drug Resistant Organisms: None Reported Past Surgical History: Appendectomy, Cholecystectomy, Hysterectomy, Uterine Ablation Additional Past Surgical History / Comment(s): Bladder lift Past Anesthesia/Blood Transfusion Reactions: No Reported Reaction Past Psychological History: No Psychological Hx Reported Smoking Status: Never smoker Past Alcohol Use History: Rare Past Drug Use History: None Reported Medications and Allergies Home Medications Medication Instructions Recorded Confirmed Type Acetaminophen [Tylenol] 650 mg PO Q6H PRN 11/08/21 11/08/21 History Albuterol Nebulized [Ventolin 1.25 mg INHALATION RT-Q4H PRN 11/08/21 11/08/21 History Nebulized (Accuneb)] Docusate [Colace] 100 mg PO HS 11/08/21 11/08/21 History Levothyroxine Sodium [Synthroid] 50 mcg PO DAILY 11/08/21 11/08/21 History Magnesium Hydroxide [Milk of 2,400 mg PO DAILY PRN 11/08/21 11/08/21 History Magnesia] Melatonin 6 mg PO HS 11/08/21 11/08/21 History Midodrine [ProAmatine] 5 mg PO AC-TID 11/08/21 11/08/21 History Na Phos,M-B/Na Phos,Di-Ba [Fleet 133 ml RECTAL DAILY PRN 11/08/21 11/08/21 History Adult] Nystatin 100,000 Unit/gm Powd 1 applic TOPICAL DAILY 11/08/21 11/08/21 History [Mycostatin Powder] Ondansetron [Zofran] 4 mg PO Q6H PRN 11/08/21 11/08/21 History Pantoprazole Sodium [Protonix] 40 mg PO Q12H 11/08/21 11/08/21 History Sennosides [Senokot] 8.6 mg PO HS 11/08/21 11/08/21 History bisacodyL [Dulcolax] 10 mg RECTAL DAILY PRN 11/08/21 11/08/21 History polyethylene glycoL 3350 [Miralax] 17 gm PO DAILY 11/08/21 11/08/21 History Allergies Allergy/AdvReac Type Severity Reaction Status Date / Time Penicillins Allergy Itching Verified 11/08/21 13:55 hydromorphone [From Dilaudid] AdvReac Confusion Verified 11/08/21 13:55 Surgical - Exam Vital Signs Temp Pulse Resp BP Pulse Ox 97.5 F L 90 18 91/68 96 11/08/21 06:13 11/08/21 06:13 11/08/21 06:13 11/08/21 06:13 11/08/21 06:13 - General well developed, well nourished, no distress - Respiratory normal respiratory effort - Abdomen Abdomen: soft, non tender, no guarding, no rigid, no rebound - Psychiatric oriented to time, oriented to person, oriented to place, speech is normal, memory intact Results - Labs 11/09/21 10:06 11/09/21 10:33 Abnormal Lab Results - Last 24 Hours (Table) 11/09/21 11/09/21 11/09/21 Range/Units 09:04 10:06 10:33 RBC 3.58 L (3.80-5.40) m/uL Hgb 9.6 L (11.4-16.0) gm/dL Hct 31.6 L (34.0-46.0) % MCHC 30.5 L (31.0-37.0) g/dL RDW 19.2 H (11.5-15.5) % Neutrophils # 8.4 H (1.3-7.7) k/uL Lymphocytes # 0.8 L (1.0-4.8) k/uL Sodium 132 L (137-145) mmol/L Chloride 92 L (98-107) mmol/L BUN 85 H (7-17) mg/dL Creatinine 3.49 H (0.52-1.04) mg/dL Calcium 7.5 L (8.4-10.2) mg/dL Urine Appearance Cloudy H (Clear) Urine Protein 1+ H (Negative) Urine Blood Trace H (Negative) Urine Bilirubin 1+ H (Negative) Ur Leukocyte Esterase Large H (Negative) Urine RBC 11 H (0-5) /hpf Urine WBC 79 H (0-5) /hpf Amorphous Sediment Rare H (None) /hpf Urine Bacteria Many H (None) /hpf Hyaline Casts 12 H (0-2) /lpf Urine Mucus Rare H (None) /hpf Microbiology - Last 24 Hours (Table) 11/09/21 09:04 Urine Culture - Preliminary Urine,Voided Diabetes panel 11/09/21 Range/Units 10:33 Sodium 132 L (137-145) mmol/L Potassium 3.9 (3.5-5.1) mmol/L Chloride 92 L (98-107) mmol/L Carbon Dioxide 30 (22-30) mmol/L BUN 85 H (7-17) mg/dL Creatinine 3.49 H (0.52-1.04) mg/dL Glucose 92 (74-99) mg/dL Calcium 7.5 L (8.4-10.2) mg/dL Calcium panel 11/09/21 Range/Units 10:33 Calcium 7.5 L (8.4-10.2) mg/dL Phosphorus 3.2 (2.5-4.5) mg/dL Pituitary panel 11/09/21 Range/Units 10:33 Sodium 132 L (137-145) mmol/L Potassium 3.9 (3.5-5.1) mmol/L Chloride 92 L (98-107) mmol/L Carbon Dioxide 30 (22-30) mmol/L BUN 85 H (7-17) mg/dL Creatinine 3.49 H (0.52-1.04) mg/dL Glucose 92 (74-99) mg/dL Calcium 7.5 L (8.4-10.2) mg/dL Adrenal panel 11/09/21 Range/Units 10:33 Sodium 132 L (137-145) mmol/L Potassium 3.9 (3.5-5.1) mmol/L Chloride 92 L (98-107) mmol/L Carbon Dioxide 30 (22-30) mmol/L BUN 85 H (7-17) mg/dL Creatinine 3.49 H (0.52-1.04) mg/dL Glucose 92 (74-99) mg/dL Calcium 7.5 L (8.4-10.2) mg/dL - Imaging US - kidney/bladder: report reviewed Assessment and Plan (1) Renal cyst Current Visit: Yes Status: Acute Code(s): N28.1 - CYST OF KIDNEY, ACQUIRED SNOMED Code(s): 309285967 Plan: CT scan of the abdomen and pelvis without contrast will be obtained for further evaluation of the abnormalities seen on ultrasound. The Perez catheter may be removed were no longer medically needed.
[2021-11-09 20:25] LABS: Glucose,Whole Blood 117 mg/dL (70-110)
[2021-11-09] MEDS: DOCUSATE 100 MG CAP PO SCH (20:53)
[2021-11-09] MEDS: MELATONIN 3 MG TABLET PO SCH (20:53)
[2021-11-09] MEDS: SENNOSIDES 8.6 MG TAB PO SCH (20:53)
--- NOTE | 2021-11-10 00:07 | CT ---
EXAMINATION TYPE: CT abdomen pelvis wo con DATE OF EXAM: 11/09/2021 COMPARISON: None HISTORY: RENAL CYSTS CT DLP: 2144.7 mGycm Automated exposure control for dose reduction was used. Images obtained from the diaphragm to the floor of the pelvis with no contrast. There is some patchy infiltrate and atelectasis at the lung bases. Right diaphragm is elevated. No pl eural effusion. There are clips from cholecystectomy. Spleen is intact. Stomach is intact. There is no evidence of pa ncreatic mass. The bile ducts are not dilated. There is no adrenal mass. Kidneys of normal size. No hydronephrosis. The ureters are not dilated. The re is no retroperitoneal adenopathy. There is Perez catheter in the urinary bladder. Bladder distends smoothly. No inguinal hernia. No free fluid in the pelvis. No pelvic mass. No evidence of a bowel ob struction. No ascites. Appendix not seen. The lumbar vertebra appear intact. No compression fracture. The bony pelvis appears intact. Sacroilia c joints are intact. No sign of pneumoperitoneum. IMPRESSION: There is some infiltrate and atelectasis at the lung bases. Elevated right diaphragm could relate to diaphragm paralysis. No acute abnormality within the abdomen pelvis. No evidence of a renal mass.
[2021-11-10] MEDS: SODIUM CHLORIDE 0.9% 1,000 ML IV SCH ×3 (02:58→23:09)
[2021-11-10] MEDS: LEVOTHYROXINE 50 MCG TAB PO SCH (05:58)
[2021-11-10] MEDS: MIDODRINE 5 MG TAB PO SCH ×3 (05:58→16:52)
[2021-11-10] MEDS: PANTOPRAZOLE 40 MG TABLET PO SCH ×2 (05:58→16:52)
[2021-11-10 06:00] LABS: Glucose,Whole Blood 93 mg/dL (70-110)
--- NOTE | 2021-11-10 08:25 | P.PN ---
Subjective Patient is seen in follow-up for acute kidney injury. Unknown baseline renal function. Creatinine improved to 3.49 as of yesterday. Receiving IV fluids. Oral intake is fair. Denies vomiting or diarrhea. Has a Perez catheter. Nonoliguric. Vital signs are stable. General: Awake. No acute distress. HEENT: Head exam is unremarkable. LUNGS: Breath sounds decreased. HEART: Rate and Rhythm are regular. ABDOMEN: Soft, obese. EXTREMITITES: No edema. Objective - Vital Signs Vital signs: Vital Signs Temp 97.7 F 11/10/21 03:38 Pulse 58 L 11/10/21 03:38 Resp 18 11/10/21 03:38 BP 101/63 11/10/21 03:38 Pulse Ox 98 11/10/21 03:38 FiO2 Intake & Output 11/09/21 11/10/21 11/10/21 18:59 06:59 18:59 Intake Total 1060 240 Output Total 500 375 Balance 560 -135 Weight 89.63 kg Intake: Oral 1060 240 Output: Urine 500 375 Other: Voiding Method Indwelling Catheter Indwelling Catheter # Voids 0 # Bowel Movements 1 - Labs CBC & Chem 7: 11/09/21 10:06 11/09/21 10:33 Labs: Abnormal Lab Results - Last 24 Hours (Table) 11/09/21 11/09/21 11/09/21 Range/Units 09:04 10:06 10:33 RBC 3.58 L (3.80-5.40) m/uL Hgb 9.6 L (11.4-16.0) gm/dL Hct 31.6 L (34.0-46.0) % MCHC 30.5 L (31.0-37.0) g/dL RDW 19.2 H (11.5-15.5) % Neutrophils # 8.4 H (1.3-7.7) k/uL Lymphocytes # 0.8 L (1.0-4.8) k/uL Sodium 132 L (137-145) mmol/L Chloride 92 L (98-107) mmol/L BUN 85 H (7-17) mg/dL Creatinine 3.49 H (0.52-1.04) mg/dL POC Glucose (mg/dL) (70-110) mg/dL Calcium 7.5 L (8.4-10.2) mg/dL Urine Appearance Cloudy H (Clear) Urine Protein 1+ H (Negative) Urine Blood Trace H (Negative) Urine Bilirubin 1+ H (Negative) Ur Leukocyte Esterase Large H (Negative) Urine RBC 11 H (0-5) /hpf Urine WBC 79 H (0-5) /hpf Amorphous Sediment Rare H (None) /hpf Urine Bacteria Many H (None) /hpf Hyaline Casts 12 H (0-2) /lpf Urine Mucus Rare H (None) /hpf 11/09/21 Range/Units 20:25 RBC (3.80-5.40) m/uL Hgb (11.4-16.0) gm/dL Hct (34.0-46.0) % MCHC (31.0-37.0) g/dL RDW (11.5-15.5) % Neutrophils # (1.3-7.7) k/uL Lymphocytes # (1.0-4.8) k/uL Sodium (137-145) mmol/L Chloride (98-107) mmol/L BUN (7-17) mg/dL Creatinine (0.52-1.04) mg/dL POC Glucose (mg/dL) 117 H (70-110) mg/dL Calcium (8.4-10.2) mg/dL Urine Appearance (Clear) Urine Protein (Negative) Urine Blood (Negative) Urine Bilirubin (Negative) Ur Leukocyte Esterase (Negative) Urine RBC (0-5) /hpf Urine WBC (0-5) /hpf Amorphous Sediment (None) /hpf Urine Bacteria (None) /hpf Hyaline Casts (0-2) /lpf Urine Mucus (None) /hpf Microbiology - Last 24 Hours (Table) 11/09/21 09:04 Urine Culture - Preliminary Urine,Voided Assessment and Plan Plan: Assessment: 1. Acute kidney injury secondary to ATN secondary to hypotension. Creatinine 4.52 admission - 3.49 yesterday. Unknown baseline renal function. No hydronephrosis noted on kidney ultrasound/CT. 2. Recent sepsis in September 2021. 3. History of A. fib. 4. History of CHF. Unknown ejection fraction. 5. Hypomagnesemia from poor intake. Replaced. Improved. Plan: Maintain IV fluids - decrease rate to 100 cc/hr. Strict is and os. Cortisol level not low. Avoid nephrotoxins. Continue to monitor renal function and urine output. Follow-up morning labs. Maintain midodrine. Hold for systolic blood pressure greater than 110. Follow-up echocardiogram.
[2021-11-10] MEDS: HEPARIN SODIUM,PORCINE/PF 5,000 UNIT/0.5 ML SYRINGE SQ SCH ×3 (09:10→23:09)
[2021-11-10] MEDS: polyethylene glycoL 3350 17 GM POWD.PACK PO SCH (09:11)
[2021-11-10 09:45] LABS: Calcium 7.6 mg/dL (8.4-10.2); Potassium 4.8 mmol/L (3.5-5.1)
--- NOTE | 2021-11-10 10:30 | P.CRDCN ---
History of Present Illness Consult date: 11/10/21 History of present illness: HISTORY OF PRESENT ILLNESS: This is a 76 year old female with a past medical history significant for hypertension, TIA, asthma, and recent prolonged hospitalization for apparent congestive heart failure and was intubated (in [place]). Patient has not yet established with a grey roll man since moving to [place]. We have been asked to see the patient in consultation for atrial fibrillation. Patient examined at the bedside. Patient states she presented to the hospital secondary to generalized weakness. She is looking to go to a rehab facility at discharge. The patient denies any chest pain or pressure. She denies shortness of breath. She does report occasional palpitations. The patient states that she was told she had atrial fibrillation when she was in [place] however she was not started on anticoagulation in the recent is unsure. There is been no documented atrial fibrillation since admission. EKG on admission reveals multifocal atrial tachycardia. Telemetry this morning reveals sinus mechanism. The patient also states that she was told she would need a pacemaker in the future by physician in [place]. The patient is unsure of the reason for this. * EKG reveals multifocal atrial tachycardia. * Chest xray findings concerning for bronchitis, which may be infectious or inflammatory etiology. * Laboratory data: WBC 10.1. Hemoglobin 9.6. Platelet count 264. Sodium 136. Potassium 4.8. BUN 69. Creatinine 2.03. ProBNP 909. Troponin 0.044. 0.040. 0.053. * Current home cardiac medications include Midodrine 5mg TID REVIEW OF SYSTEMS: At the time of my exam: CONSTITUTIONAL: Denies fever or chills. HEENT: Denies blurred vision, vision changes, or eye pain. Denies hemoptysis CARDIOVASCULAR: Denies chest pain. Denies orthopnea. Denies PND. Denies palpita tions RESPIRATORY: Denies shortness of breath. GASTROINTESTINAL: Denies abdominal pain. Denies nausea or vomiting. HEMATOLOGIC: Denies bleeding disorders. GENITOURINARY: Denies any blood in urine. SKIN: Denies pruitis. Denies rash. PHYSICAL EXAM: VITAL SIGNS: Reviewed. GENERAL: Well-developed in no acute distress. HEENT: Head is normocephalic. Pupils are equal, round. Sclerae anicteric. Mucous membranes of the mouth are moist. Neck supple. No JVD or thyromegaly LUNGS: Respirations even and unlabored. Lungs essentially clear to auscultation bilaterally. HEART: Bradycardic. Regular rate and rhythm. S1 and S2 heard. ABDOMEN: Soft. Nondistended. Nontender. EXTREMITIES: Normal range of motion. No clubbing or cyanosis. Peripheral pulses intact. No lower extremity edema NEUROLOGIC: Awake and alert. Oriented x 3. ASSESSMENT: Generalized weakness Multifocal atrial tachycardia Acute renal failure Abnormal troponins, secondary to above, not indicative of acute coronary syndrome History of congestive heart failure, type unknown, echo pending History of hypertension History of TIA History of asthma Recent prolonged hospitalization in [place] for apparent congestive heart failure and respiratory failure requiring intubation PLAN: Obtain 2-D echo to assess cardiac structure and function No evidence of atrial fibrillation noted since admission to the hospital. EKG on admission reveals MAT. Continue telemetry monitoring Event monitor at time of discharge to assess for atrial fibrillation or sick sinus syndrome Further recommendations pending patient's course Nurse practitioner note has been reviewed by physician. Signing provider agrees with the documented findings, assessment, and plan of care. Past Medical History Past Medical History: Asthma, Heart Failure, Diabetes Mellitus, Hypertension, Pulmonary Embolus (PE), Respiratory Disorder, Thyroid Disorder History of Any Multi-Drug Resistant Organisms: None Reported Past Surgical History: Appendectomy, Cholecystectomy, Hysterectomy, Uterine Ablation Additional Past Surgical History / Comment(s): Bladder lift Past Anesthesia/Blood Transfusion Reactions: No Reported Reaction Past Psychological History: No Psychological Hx Reported Smoking Status: Never smoker Past Alcohol Use History: Rare Past Drug Use History: None Reported Medications and Allergies Home Medications Medication Instructions Recorded Confirmed Type Acetaminophen [Tylenol] 650 mg PO Q6H PRN 11/08/21 11/08/21 History Albuterol Nebulized [Ventolin 1.25 mg INHALATION RT-Q4H PRN 11/08/21 11/08/21 History Nebulized (Accuneb)] Docusate [Colace] 100 mg PO HS 11/08/21 11/08/21 History Levothyroxine Sodium [Synthroid] 50 mcg PO DAILY 11/08/21 11/08/21 History Magnesium Hydroxide [Milk of 2,400 mg PO DAILY PRN 11/08/21 11/08/21 History Magnesia] Melatonin 6 mg PO HS 11/08/21 11/08/21 History Midodrine [ProAmatine] 5 mg PO AC-TID 11/08/21 11/08/21 History Na Phos,M-B/Na Phos,Di-Ba [Fleet 133 ml RECTAL DAILY PRN 11/08/21 11/08/21 History Adult] Nystatin 100,000 Unit/gm Powd 1 applic TOPICAL DAILY 11/08/21 11/08/21 History [Mycostatin Powder] Ondansetron [Zofran] 4 mg PO Q6H PRN 11/08/21 11/08/21 History Pantoprazole Sodium [Protonix] 40 mg PO Q12H 11/08/21 11/08/21 History Sennosides [Senokot] 8.6 mg PO HS 11/08/21 11/08/21 History bisacodyL [Dulcolax] 10 mg RECTAL DAILY PRN 11/08/21 11/08/21 History polyethylene glycoL 3350 [Miralax] 17 gm PO DAILY 11/08/21 11/08/21 History Allergies Allergy/AdvReac Type Severity Reaction Status Date / Time Penicillins Allergy Itching Verified 11/08/21 13:55 hydromorphone [From Dilaudid] AdvReac Confusion Verified 11/08/21 13:55 Physical Exam Vitals: Vital Signs Temp Pulse Pulse Resp BP Pulse Ox 11/10/21 03:38 97.7 F 58 L 18 101/63 98 11/10/21 00:00 97.9 F 62 18 128/70 92 L 11/09/21 20:00 97.6 F 57 L 20 102/58 95 11/09/21 18:04 63 17 110/56 98 11/09/21 15:08 62 22 11/09/21 14:53 97.7 F 67 89/47 96 11/09/21 11:59 97.8 F 67 24 95/45 94 L 11/09/21 08:44 98.3 F 74 17 98/51 97 Intake and Output 11/09/21 11/10/21 11/10/21 22:59 06:59 14:59 Intake Total 240 Output Total 650 225 Balance -410 -225 Intake: Oral 240 Output: Urine 650 225 Other: Voiding Method Indwelling Catheter Indwelling Catheter # Voids 0 # Bowel Movements 1 Results 11/09/21 10:06 11/10/21 08:05 CBC 11/09/21 Range/Units 10:06 WBC 10.1 (3.8-10.6) k/uL RBC 3.58 L (3.80-5.40) m/uL Hgb 9.6 L (11.4-16.0) gm/dL Hct 31.6 L (34.0-46.0) % Plt Count 264 (150-450) k/uL Comprehensive Metabolic Panel 11/09/21 Range/Units 10:33 Sodium 132 L (137-145) mmol/L Potassium 3.9 (3.5-5.1) mmol/L Chloride 92 L (98-107) mmol/L Carbon Dioxide 30 (22-30) mmol/L BUN 85 H (7-17) mg/dL Creatinine 3.49 H (0.52-1.04) mg/dL Glucose 92 (74-99) mg/dL Calcium 7.5 L (8.4-10.2) mg/dL Current Medications Generic Name Dose Route Start Last Admin Trade Name Freq PRN Reason Stop Dose Admin Acetaminophen 650 mg 11/08/21 15:37 11/09/21 15:16 Acetaminophen Tab 325 Mg Tab PO 650 mg Q6H PRN Administration Mild Pain Albuterol Sulfate 1.25 mg 11/08/21 15:37 Albuterol Nebulized 1.25 Mg/3 Ml INHALATION RT-Q4H PRN Wheezing Bisacodyl 10 mg 11/08/21 15:37 Bisacodyl 10 Mg Supp RECTAL DAILY PRN Constipation Docusate Sodium 100 mg 11/08/21 21:00 11/09/21 20:53 Docusate 100 Mg Cap PO 100 mg HS PIPO Administration Heparin Sodium (Porcine) 5,000 unit 11/09/21 00:00 11/09/21 23:53 Heparin Sodium,Porcine/Pf 5,000 Unit/0.5 Ml Syringe SQ 5,000 unit Q8HR PIPO Administration Sodium Chloride 1,000 mls @ 100 mls/hr 11/08/21 18:45 11/10/21 02:58 Saline 0.9% IV 125 mls/hr .Q10H PIPO Administration Ceftriaxone Sodium 1 gm/ 50 mls @ 100 mls/hr 11/09/21 10:45 11/09/21 14:57 Sodium Chloride IVPB 100 mls/hr Q24HR PIPO Administration Protocol Levothyroxine Sodium 50 mcg 11/09/21 06:30 11/10/21 05:58 Levothyroxine 50 Mcg Tab PO 50 mcg DAILY@0630 PIPO Administration Magnesium Hydroxide 2,400 mg 11/08/21 15:37 Magnesium Hydroxide 2,400 Mg/10 Ml Cup PO DAILY PRN Constipation Melatonin 6 mg 11/08/21 21:00 11/09/21 20:53 Melatonin 3 Mg Tablet PO 6 mg HS PIPO Administration Midodrine 10 mg 11/09/21 12:30 11/10/21 05:58 Midodrine 5 Mg Tab PO 10 mg AC-TID PIPO Administration Naloxone HCl 0.2 mg 11/08/21 17:06 Naloxone 0.4 Mg/Ml 1 Ml Vial IV Q2M PRN Opioid Reversal Ondansetron HCl 4 mg 11/08/21 12:30 11/09/21 18:00 Ondansetron 4 Mg/2 Ml Vial IVP 4 mg Q8HR PRN Administration Nausea And Vomiting Ondansetron HCl 4 mg 11/08/21 15:37 Ondansetron 4 Mg Tab PO Q6H PRN Nausea Oxycodone/Acetaminophen 1 each 11/08/21 14:17 11/09/21 23:53 Oxycodone-Apap 5-325mg 1 Each Tab PO 1 each Q6HR PRN Administration mild to moderate pain Pantoprazole Sodium 40 mg 11/08/21 17:30 11/10/21 05:58 Pantoprazole 40 Mg Tablet PO 40 mg AC-BID PIPO Administration Polyethylene Glycol 17 gm 11/09/21 09:00 11/09/21 09:10 Polyethylene Glycol 3350 17 Gm Powd.Pack PO Not Given DAILY PIPO Senna 8.6 mg 11/08/21 21:00 11/09/21 20:53 Sennosides 8.6 Mg Tab PO 8.6 mg HS PIPO Administration Intake and Output 11/09/21 11/10/21 11/10/21 22:59 06:59 14:59 Intake Total 240 Output Total 650 225 Balance -410 -225 Intake: Oral 240 Output: Urine 650 225 Other: Voiding Method Indwelling Catheter Indwelling Catheter # Voids 0 # Bowel Movements 1 11/09/21 10:06 11/09/21 10:33
[2021-11-10 11:56] LABS: T4, Free (Free Thyroxine) 1.32 ng/dL (0.78-2.19)
[2021-11-10 12:05] LABS: Glucose,Whole Blood 83 mg/dL (70-110)
[2021-11-10] MEDS: ONDANSETRON 4 MG TAB PO PRN (12:33)
--- NOTE | 2021-11-10 14:33 | P.PN ---
Subjective Progress Note Date: 11/10/21 Principal diagnosis: weakness Feeling ok, still weak. No fevers or chills. No pain, no overnight events. Objective - Vital Signs Vital signs: Vital Signs Temp 97.7 F 11/10/21 03:38 Pulse 79 11/10/21 08:00 Resp 16 11/10/21 12:00 BP 108/67 11/10/21 12:00 Pulse Ox 95 11/10/21 12:00 FiO2 Intake & Output 11/09/21 11/10/21 11/10/21 18:59 06:59 18:59 Intake Total 1060 240 Output Total 500 375 Balance 560 -135 Weight 89.63 kg Intake: Oral 1060 240 Output: Urine 500 375 Other: Voiding Method Indwelling Catheter Indwelling Catheter Indwelling Catheter # Voids 0 # Bowel Movements 1 - Exam Constitutional: No acute distress, conversant, pleasant Eyes:Anicteric sclerae, moist conjunctiva, no lid-lag, PERRLA, ENMT: Oropharynx clear, no erythema, exudates Neck: Supple, FROM, no masses, or JVD, No carotid bruits, No thyromegaly Lungs: Clear to auscultation, Clear to percussion, Normal respiratory effort, no accessory muscle use Cardiovascular: Heart regular in rate and rhythm, No murmurs, gallops, or rubs, No peripheral edema Abdominal: Soft, Nontender, no guarding, rebound or rigidity, Normoactive bowel sounds, No hepatomegaly, No splenomegaly, No palpable mass Skin: Normal temperature, tone, texture, turgor, no induration, No subcutaneous nodules, No rash, lesions, No ulcers Extremities: No digital cyanosis, No clubbing, Pedal pulses intact and symmetrical, Radial pulses intact and symmetrical, No calf tenderness Psychiatric: Alert and oriented to person, place and time, appropriate affect, intact judgement Neuro: general weakness - Labs CBC & Chem 7: 11/09/21 10:06 11/10/21 08:05 Labs: Abnormal Lab Results - Last 24 Hours (Table) 11/09/21 11/09/21 11/10/21 Range/Units 10:33 20:25 08:05 Sodium 136 L (137-145) mmol/L BUN 69 H (7-17) mg/dL Creatinine 2.09 H (0.52-1.04) mg/dL POC Glucose (mg/dL) 117 H (70-110) mg/dL Calcium 7.6 L (8.4-10.2) mg/dL TSH 18.600 H (0.465-4.680) mIU/L Microbiology - Last 24 Hours (Table) 11/09/21 09:04 Urine Culture - Preliminary Urine,Voided Assessment and Plan Plan: Acute kidney injury Improving Likely secondary to the travel/dehydration IV fluids Nephrology following Follow renal function in a.m. Renal cysts on US CT abdomen done, no cysts or masses. Hx of sick sinus syndrome, history of atrial fibrillation Now she is sinus bo on the monitor This was reported on the patient's medical records from last admission, however it is unclear why patient is not on anticoagulation Cardiology consulted, echo done Diabetes type 2 Controlled Hold oral hypoglycemics Sliding-scale insulin Hypomagnesemia Replaced General weakness/adult failure to thrive PT and OT Chronic Asthma Hypertension, Hypothyroidism All stable Resume meds DVT prophylaxis Heparin subcu Will likely need rehab. Anticipated discharge: 2 days
[2021-11-10 16:48] LABS: Glucose,Whole Blood 87 mg/dL (70-110)
--- NOTE | 2021-11-10 17:37 | P.PN ---
Progress Note - Text Progress Note Date: 11/10/21 I have reviewed Mrs. Goldsmith' CT scan, which showed no renal abnormalities. I reassured her of this. From my standpoint, the Perez catheter may be removed when no longer medically needed. Please notify me if I can be of any further assistance.
[2021-11-10] MEDS: DOCUSATE 100 MG CAP PO SCH (19:32)
[2021-11-10] MEDS: SENNOSIDES 8.6 MG TAB PO SCH (19:32)
[2021-11-10] MEDS: MELATONIN 3 MG TABLET PO SCH (19:32)
[2021-11-10] MEDS: ONDANSETRON 4 MG/2 ML VIAL IVP PRN (19:37)
[2021-11-10 20:19] LABS: Glucose,Whole Blood 118 mg/dL (70-110)
[2021-11-10] MEDS: ACETAMINOPHEN TAB 325 MG TAB PO PRN (23:20)
[2021-11-11] MEDS: SODIUM CHLORIDE 0.9% 1,000 ML IV SCH (03:31)
[2021-11-11] MEDS: oxyCODONE-APAP 5-325MG 1 EACH TAB PO PRN ×2 (03:37→12:00)
[2021-11-11 06:13] LABS: Glucose,Whole Blood 97 mg/dL (70-110)
[2021-11-11] MEDS: PANTOPRAZOLE 40 MG TABLET PO SCH ×2 (06:35→16:53)
[2021-11-11] MEDS: MIDODRINE 5 MG TAB PO SCH ×3 (06:35→16:53)
[2021-11-11] MEDS: LEVOTHYROXINE 50 MCG TAB PO SCH (06:35)
[2021-11-11 08:32] LABS: Calcium 8.2 mg/dL (8.4-10.2); Magnesium 1.7 mg/dL (1.6-2.3); Potassium 5.2 mmol/L (3.5-5.1)
[2021-11-11] MEDS: HEPARIN SODIUM,PORCINE/PF 5,000 UNIT/0.5 ML SYRINGE SQ SCH ×3 (08:39→23:13)
[2021-11-11] MEDS: ONDANSETRON 4 MG TAB PO PRN ×2 (08:39→16:53)
[2021-11-11] MEDS: polyethylene glycoL 3350 17 GM POWD.PACK PO SCH (08:39)
--- NOTE | 2021-11-11 09:33 | P.PN ---
Subjective Progress Note Date: 11/11/21 Principal diagnosis: History of present illness: Patient is a 76-year-old female seen in consultation for acute kidney injury. Unknown baseline renal function. Creatinine was 4.21 admission yesterday. Patient was recently admitted with septic shock and respiratory failure in [place]. She subsequently went to rehab facility but left the rehab as she was not happy with the care. Patient then came to [place] and came to the hospital as she was unable to care for herself. Patient has been voiding. She is incontinent. Blood pressure has been low in the systolic 70s. She did receive 1 L bolus of normal saline in the ER. However she did not receive much fluids overnight due to no IV access. She now does have an IV access and is receiving normal saline at 1 25 mL an hour. I don't see any nonsteroidals or diuretics in her home medication list. States she takes Tylenol if needed. No history of diabetes. States she had a daughter who was a diabetic and required renal replacement therapy but has now . Past Medical History Past Medical History: Asthma, Heart Failure, Diabetes Mellitus, Hypertension, Pulmonary Embolus (PE), Respiratory Disorder, Thyroid Disorder Blood pressure 101/62, temperature 97.8, heart rate 61. 24-hour intake is 1450 output is documented at 360 mL's. General: Awake. No acute distress. HEENT: Head exam is unremarkable. LUNGS: Breath sounds decreased. HEART: Rate and Rhythm are regular. ABDOMEN: Soft, no distention. EXTREMITITES: No edema. Assessment: 1. Acute kidney injury secondary to ATN secondary to hypotension. Creatinine 4.52 admission. Unknown baseline renal function. No hydronephrosis noted on kidney ultrasound. Creatinine is improved to 1.21 this morning 2. Recent sepsis in September 2021. Currently has gram-negative bacilli on urine culture, urinalysis consistent with UTI, she is on ceftriaxone currently, cultures are pending 3. History of A. fib. 4. History of CHF. Unknown ejection fraction. 5. Hypomagnesemia from poor intake. Replaced. 6. Potassium is 5.2 watch for GI bleed 7. Nausea vomiting diarrhea gastroenteritis. Plan: 1. Continue IV fluids, normal saline at 100 and hour. 2. Antibiotics per Watch for congestive heart failure. 3. Check CBC Objective - Vital Signs Vital signs: Vital Signs Temp 97.8 F 11/11/21 08:00 Pulse 61 06/25/22 08:00 Resp 17 11/11/21 08:00 BP 101/62 11/11/21 08:00 Pulse Ox 95 11/11/21 08:00 FiO2 Intake & Output 11/10/21 11/11/21 11/11/21 18:59 06:59 18:59 Intake Total 120 240 0 Output Total 850 600 Balance -730 -360 0 Intake: Oral 120 240 0 Output: Urine 850 600 Other: Voiding Method Indwelling Catheter Indwelling Catheter # Bowel Movements 1 - Labs CBC & Chem 7: 11/09/21 10:06 11/11/21 07:02 Labs: Abnormal Lab Results - Last 24 Hours (Table) 11/09/21 11/10/21 11/10/21 Range/Units 10:33 08:05 20:18 Sodium 136 L (137-145) mmol/L Potassium (3.5-5.1) mmol/L Chloride (98-107) mmol/L BUN 69 H (7-17) mg/dL Creatinine 2.09 H (0.52-1.04) mg/dL POC Glucose (mg/dL) 118 H (70-110) mg/dL Calcium 7.6 L (8.4-10.2) mg/dL TSH 18.600 H (0.465-4.680) mIU/L 11/11/21 Range/Units 07:02 Sodium (137-145) mmol/L Potassium 5.2 H (3.5-5.1) mmol/L Chloride 112 H (98-107) mmol/L BUN 45 H (7-17) mg/dL Creatinine 1.21 H (0.52-1.04) mg/dL POC Glucose (mg/dL) (70-110) mg/dL Calcium 8.2 L (8.4-10.2) mg/dL TSH (0.465-4.680) mIU/L Microbiology - Last 24 Hours (Table) 11/09/21 09:04 Urine Culture - Preliminary Urine,Voided Gram Neg Bacilli
--- NOTE | 2021-11-11 10:24 | P.PN ---
Subjective Progress Note Date: 11/11/21 Principal diagnosis: weakness Doing well. Feeling stronger, but still overall weak. Eating ok. No fevers or chills. Objective - Vital Signs Vital signs: Vital Signs Temp 97.8 F 11/11/21 08:00 Pulse 61 11/11/21 08:00 Resp 17 11/11/21 08:00 BP 101/62 11/11/21 08:00 Pulse Ox 95 11/11/21 08:00 FiO2 Intake & Output 11/10/21 11/11/21 11/11/21 18:59 06:59 18:59 Intake Total 120 240 0 Output Total 850 600 Balance -730 -360 0 Intake: Oral 120 240 0 Output: Urine 850 600 Other: Voiding Method Indwelling Catheter Indwelling Catheter Indwelling Catheter # Bowel Movements 1 - Exam Constitutional: No acute distress, conversant, pleasant Eyes:Anicteric sclerae, moist conjunctiva, no lid-lag, PERRLA, ENMT: Oropharynx clear, no erythema, exudates Neck: Supple, FROM, no masses, or JVD, No carotid bruits, No thyromegaly Lungs: Clear to auscultation, Clear to percussion, Normal respiratory effort, no accessory muscle use Cardiovascular: Heart regular in rate and rhythm, No murmurs, gallops, or rubs, No peripheral edema Abdominal: Soft, Nontender, no guarding, rebound or rigidity, Normoactive bowel sounds, No hepatomegaly, No splenomegaly, No palpable mass Skin: Normal temperature, tone, texture, turgor, no induration, No subcutaneous nodules, No rash, lesions, No ulcers Extremities: No digital cyanosis, No clubbing, Pedal pulses intact and symmetrical, Radial pulses intact and symmetrical, No calf tenderness Psychiatric: Alert and oriented to person, place and time, appropriate affect, intact judgement Neuro: general weakness - Labs CBC & Chem 7: 11/09/21 10:06 11/11/21 07:02 Labs: Abnormal Lab Results - Last 24 Hours (Table) 11/09/21 11/10/21 11/11/21 Range/Units 10:33 20:18 07:02 Potassium 5.2 H (3.5-5.1) mmol/L Chloride 112 H (98-107) mmol/L BUN 45 H (7-17) mg/dL Creatinine 1.21 H (0.52-1.04) mg/dL POC Glucose (mg/dL) 118 H (70-110) mg/dL Calcium 8.2 L (8.4-10.2) mg/dL TSH 18.600 H (0.465-4.680) mIU/L Microbiology - Last 24 Hours (Table) 11/09/21 09:04 Urine Culture - Final Urine,Voided Klebsiella pneumoniae Assessment and Plan Plan: Acute kidney injury Improving Likely secondary to the travel/dehydration D/c IV fluids and rios cath Nephrology following Follow renal function in a.m. Renal cysts on US CT abdomen done, no cysts or masses. ESBL UTI Consult ID Start ertapenem, d/c ceftriaxone. Hx of sick sinus syndrome, history of atrial fibrillation Now she is sinus bo on the monitor This was reported on the patient's medical records from last admission, however it is unclear why patient is not on anticoagulation Cardiology consulted, echo done Diabetes type 2 Controlled Hold oral hypoglycemics Sliding-scale insulin Hypomagnesemia Replaced General weakness/adult failure to thrive PT and OT Chronic Asthma Hypertension, Hypothyroidism All stable Resume meds DVT prophylaxis Heparin subcu Will likely need rehab. Anticipated discharge: 2 days
--- NOTE | 2021-11-11 10:27 | CA ---
Transthoracic Echo Report Name: Crissy Goldsmith Age: 76 Gender: F : 1945 Exam Date: 11/10/2021 10:56 Exam Location: [facility] Ht (in): 65 Wt (lb): 197 Ordering Physician: Lina Martinez Attending/Referring Phys: Blacksmith Apprentice Saundra You, SKYLER Procedure CPT: Indications: LV function Cardiac Hx: Technical Quality: Good Contrast 1: Total Dose (mL): Contrast 2: Total Dose (mL): MEASUREMENTS (Male / Female) Normal Values 2D ECHO LV Diastolic Diameter PLAX 4.5 cm 4.2 - 5.9 / 3.9 - 5.3 cm LV Systolic Diameter PLAX 4.1 cm IVS Diastolic Thickness 1.0 cm 0.6 - 1.0 / 0.6 - 0.9 cm LVPW Diastolic Thickness 1.4 cm 0.6 - 1.0 / 0.6 - 0.9 cm LV Relative Wall Thickness 0.5 RV Internal Dim ED PLAX 3.3 cm LA Systolic Diameter LX 3.4 cm 3.0 - 4.0 / 2.7 - 3.8 cm M-MODE Aortic Root Diameter MM 2.4 cm LA Systolic Diameter MM 4.0 cm LA Ao Ratio MM 1.7 MV E Point Septal Separation 0.4 cm AV Cusp Separation MM 1.5 cm DOPPLER MV Area PHT 3.5 cm??? Mitral E Point Velocity 62.6 cm/s Mitral A Point Velocity 74.0 cm/s Mitral E to A Ratio 0.8 MV Deceleration Time 217.7 ms MV E' Velocity 5.1 cm/s Mitral E to MV E' Ratio 12.2 TR Peak Velocity 207.8 cm/s TR Peak Gradient 17.3 mmHg Right Ventricular Systolic Press 22.3 mmHg FINDINGS Left Ventricle Normal left ventricular size, wall thickness, systolic function with no obvious regional wall motion abnormalities. Left ventricular ejection fraction is estimated at 50-55%. Right Ventricle The right ventricle is normal in size and function. Right Atrium The right atrium is normal in size. Left Atrium The left atrium is normal in size. Mitral Valve Structurally normal mitral . There is no mitral regurgitation. Aortic Valve Structurally normal aortic valve without significant sclerosis or stenosis. There is no aortic regurgitation. Tricuspid Valve Structurally normal tricuspid valve without significant stenosis. Pulmonary artery systolic pressure is normal. Pulmonic Valve Structurally normal pulmonic valve without significant stenosis. There is no pulmonic regurgitation. Pericardium Normal pericardium without effusion. Aorta Normal aortic root dimension. CONCLUSIONS #1. Normal left ventricular size and function. #2. Suboptimal study Previewed by: Dr. Jody Cheung MD (Electronically Signed) Final Date: 11 November 2021 10:26
[2021-11-11 11:34] LABS: Glucose,Whole Blood 96 mg/dL (70-110)
[2021-11-11] MEDS: ERTAPENEM 1 GM in SODIUM CHLORIDE 0.9% 50 ML IVPB SCH (12:01)
--- NOTE | 2021-11-11 14:48 | P.PN ---
Subjective Progress Note Date: 11/11/21 This is a 76 year old female with a past medical history significant for hypertension, TIA, asthma, and recent prolonged hospitalization for apparent congestive heart failure and was intubated (in [place]). Patient has not yet established with a chief of service since moving to [place]. We have been asked to see the patient in consultation for atrial fibrillation. Patient examined at the bedside. Patient states she presented to the hospital secondary to generalized weakness. She is looking to go to a rehab facility at discharge. The patient denies any chest pain or pressure. She denies shortness of breath. She does report occasional palpitations. The patient states that she was told she had atrial fibrillation when she was in [place] however she was not started on anticoagulation in the recent is unsure. There is been no documented atrial fibrillation since admission. EKG on admission reveals multifocal atrial tachycardia. Telemetry this morning reveals sinus mechanism. The patient also states that she was told she would need a pacemaker in the future by physician in [place]. The patient is unsure of the reason for this. 11/11/2021: This patient seemed to be feeling better. Her rhythm seemed to be more multifocal atrial rhythm. Echo Cardigan showed normal LV function. Her renal functions seem to be improving. Overall patient is doing well. Continue current management. Follow-up as an outpatient Objective - Vital Signs Vital signs: Vital Signs Temp 97.4 F L 11/11/21 11:45 Pulse 63 11/11/21 11:45 Resp 17 11/11/21 11:45 BP 107/63 11/11/21 11:45 Pulse Ox 97 11/11/21 11:45 FiO2 Intake & Output 11/10/21 11/11/21 11/11/21 18:59 06:59 18:59 Intake Total 120 240 236 Output Total 850 600 500 Balance -730 -360 -264 Intake: Oral 120 240 236 Output: Urine 850 600 500 Uretheral (Perez) 500 Other: Voiding Method Indwelling Catheter Indwelling Catheter Indwelling Catheter # Bowel Movements 1 - Exam GENERAL EXAM: Patient is alert and oriented and doesn't appear to be in any acute distress HEENT: Normocephalic. Normal reaction of pupils, equal size, normal range of extraocular motion. No erythema or exudates in the throat. NECK: No masses, no nuchal rigidity. CHEST: No chest wall deformity. LUNGS: Equal air entry with no crackles or wheeze. HEART: S1 and S2 normal with no audible mumurs or gallops. Regular rhythm, femorals equal on both sides.. ABDOMEN: No hepatosplenomegaly, normal bowel sounds, no guarding or rigidity. SKIN: No rashes CENTRAL NERVOUS SYSTEM: No focal deficits. EXTREMITIES: Resolving edema - Labs CBC & Chem 7: 11/09/21 10:06 11/11/21 07:02 Labs: Abnormal Lab Results - Last 24 Hours (Table) 11/10/21 11/11/21 Range/Units 20:18 07:02 Potassium 5.2 H (3.5-5.1) mmol/L Chloride 112 H (98-107) mmol/L BUN 45 H (7-17) mg/dL Creatinine 1.21 H (0.52-1.04) mg/dL POC Glucose (mg/dL) 118 H (70-110) mg/dL Calcium 8.2 L (8.4-10.2) mg/dL Microbiology - Last 24 Hours (Table) 11/09/21 09:04 Urine Culture - Final Urine,Voided Klebsiella pneumoniae Assessment and Plan (1) Multifocal atrial tachycardia Current Visit: Yes Status: Acute Code(s): I47.1 - SUPRAVENTRICULAR TACHYCARDIA SNOMED Code(s): 75694747 (2) TESS (acute kidney injury) Current Visit: Yes Status: Acute Code(s): N17.9 - ACUTE KIDNEY FAILURE, UNSPECIFIED SNOMED Code(s): 78828315 (3) Chest pain Current Visit: Yes Status: Acute Code(s): R07.9 - CHEST PAIN, UNSPECIFIED SNOMED Code(s): 44685655 Plan: Continue current management. No evidence of atrial fibrillation. Follow-up as an outpatient
[2021-11-11 16:58] LABS: Glucose,Whole Blood 103 mg/dL (70-110)
[2021-11-11] MEDS: SENNOSIDES 8.6 MG TAB PO SCH (19:35)
[2021-11-11] MEDS: DOCUSATE 100 MG CAP PO SCH (19:35)
[2021-11-11] MEDS: MELATONIN 3 MG TABLET PO SCH (19:35)
[2021-11-11 20:16] LABS: Glucose,Whole Blood 88 mg/dL (70-110)
--- NOTE | 2021-11-12 01:11 | P.CONS ---
History of Present Illness - Reason for Consult Consult date: 11/11/21 UTI Requesting physician: Corwin Apple - Chief Complaint Weakness x few days - History of Present Illness Patient is a 76-year-old female with a past medical history difficult for congestive heart failure with sick sinus syndrome diabetes mellitus hypothyroidism and this patient apparently was recently hospitalized in [place] for about a month apparently for exacerbation of heart failure patient family brought her back to [place] and subsequently brought her to the hospital at [facility] on and the patient was unable to take care of herself patient was complaining of feeling weak and having no energy patient denies having any chest pain however is complaining of some shortness of breath occasional cough abdominal pain vomiting diarrhea patient did have a Perez catheter that was placed during this admission and did have a history of catheter placement in [place], patient did have a positive UA with urine culture has been finalized with ESBL Klebsiella that has prompted this infectious disease consultation, the patient has been afebrile throughout her hospital stay patient did have a elevated white count admission that subsequently normalized BUN/creatinine is mildly elevated liver enzyme has been normal COVID testing was negative patient did have a CT of abdominal pelvis did not show any acute abnormality Review of Systems Positive point has been mentioned in the HPI rest of the systems are negative Past Medical History Past Medical History: Asthma, Heart Failure, Diabetes Mellitus, Hypertension, Pulmonary Embolus (PE), Respiratory Disorder, Thyroid Disorder History of Any Multi-Drug Resistant Organisms: None Reported Past Surgical History: Appendectomy, Cholecystectomy, Hysterectomy, Uterine Ablation Additional Past Surgical History / Comment(s): Bladder lift Past Anesthesia/Blood Transfusion Reactions: No Reported Reaction Past Psychological History: No Psychological Hx Reported Smoking Status: Never smoker Past Alcohol Use History: Rare Past Drug Use History: None Reported Medications and Allergies Home Medications Medication Instructions Recorded Confirmed Type Acetaminophen [Tylenol] 650 mg PO Q6H PRN 11/08/21 11/08/21 History Albuterol Nebulized [Ventolin 1.25 mg INHALATION RT-Q4H PRN 11/08/21 11/08/21 History Nebulized (Accuneb)] Docusate [Colace] 100 mg PO HS 11/08/21 11/08/21 History Levothyroxine Sodium [Synthroid] 50 mcg PO DAILY 11/08/21 11/08/21 History Magnesium Hydroxide [Milk of 2,400 mg PO DAILY PRN 11/08/21 11/08/21 History Magnesia] Melatonin 6 mg PO HS 11/08/21 11/08/21 History Midodrine [ProAmatine] 5 mg PO AC-TID 11/08/21 11/08/21 History Na Phos,M-B/Na Phos,Di-Ba [Fleet 133 ml RECTAL DAILY PRN 11/08/21 11/08/21 History Adult] Nystatin 100,000 Unit/gm Powd 1 applic TOPICAL DAILY 11/08/21 11/08/21 History [Mycostatin Powder] Ondansetron [Zofran] 4 mg PO Q6H PRN 11/08/21 11/08/21 History Pantoprazole Sodium [Protonix] 40 mg PO Q12H 11/08/21 11/08/21 History Sennosides [Senokot] 8.6 mg PO HS 11/08/21 11/08/21 History bisacodyL [Dulcolax] 10 mg RECTAL DAILY PRN 11/08/21 11/08/21 History polyethylene glycoL 3350 [Miralax] 17 gm PO DAILY 11/08/21 11/08/21 History Allergies Allergy/AdvReac Type Severity Reaction Status Date / Time Penicillins Allergy Itching Verified 11/08/21 13:55 hydromorphone [From Dilaudid] AdvReac Confusion Verified 11/08/21 13:55 Physical Exam Vitals: Vital Signs Temp Pulse Resp BP Pulse Ox 11/11/21 08:00 97.8 F 61 17 101/62 95 11/11/21 04:00 97.4 F L 62 18 103/56 96 11/10/21 23:58 97.5 F L 65 20 92/53 98 11/10/21 20:00 97.5 F L 68 18 98/47 97 11/10/21 16:00 62 16 107/52 98 11/10/21 12:00 16 108/67 95 Intake and Output 11/10/21 11/11/21 11/11/21 22:59 06:59 14:59 Intake Total 360 0 Output Total 975 475 500 Balance -613 -829 -500 Intake: Oral 360 0 Output: Urine 975 475 500 Uretheral (Perez) 500 Other: Voiding Method Indwelling Catheter Indwelling Catheter Indwelling Catheter # Bowel Movements 1 GENERAL DESCRIPTION: An elderly female lying in bed, no distress. No tachypnea or accessory muscle of respiration use. HEENT: Shows Pallor , no scleral icterus. Oral mucous membrane is dry. No pharyngeal erythema or thrush NECK: Trachea central, no thyromegaly. LUNGS: Unlabored breathing. Decreased breath sounds at the bases. No wheeze or crackle. HEART: S1, S2, regular rate and rhythm. No loud murmur ABDOMEN: Soft, no tenderness , guarding or rigidity, no organomegaly EXTREMITIES: No edema of feet. SKIN: No rash, no masses palpable. NEUROLOGICAL: The patient is awake, alert, oriented x3, mood and affect normal. Results CBC & Chem 7: 11/09/21 10:06 11/11/21 07:02 Labs: Abnormal Lab Results - Last 24 Hours (Table) 11/10/21 11/11/21 Range/Units 20:18 07:02 Potassium 5.2 H (3.5-5.1) mmol/L Chloride 112 H (98-107) mmol/L BUN 45 H (7-17) mg/dL Creatinine 1.21 H (0.52-1.04) mg/dL POC Glucose (mg/dL) 118 H (70-110) mg/dL Calcium 8.2 L (8.4-10.2) mg/dL Microbiology - Last 24 Hours (Table) 11/09/21 09:04 Urine Culture - Final Urine,Voided Klebsiella pneumoniae Assessment and Plan (1) UTI (urinary tract infection) Current Visit: Yes Status: Acute Code(s): N39.0 - URINARY TRACT INFECTION, SITE NOT SPECIFIED SNOMED Code(s): 14057980 Plan: 1patient with a positive urine culture with ESBL Klebsiella possible mild cystitis in this patient did have a Perez catheter placed during this admission as well as her admission in [place] possible risk factor for the UTI clinically not behaving as a pyelonephritis or deep infection. 2penicillin allergy. 3repeat a urine culture as a catheter has been discontinued. 4Invanz 1 g daily to continue while waiting for the repeat urine to be finalized. We will follow on clinical condition and cultures to further adjust medication if needed Thank you for this consultation will follow this patient along with you
[2021-11-12 03:35] LABS: Appearance,Urine Clear (Clear); Bacteria,Urine Rare /hpf; Bilirubin,Urine Negative (Negative); Blood,Urine Negative (Negative); Color,Urine Light Yellow; Glucose,Urine (UA) Negative (Negative); Ketones,Urine Trace (Negative); Leukocyte Esterase,Urine Moderate (Negative); Mucus,Urine Rare /hpf; Nitrite,Urine Negative (Negative); PH, Urine 5.5 (5.0-8.0); Protein,Urine Trace (Negative); RBC,Urine 1 /hpf (0-5); Specific Gravity,Urine 1.011 (1.001-1.035); Squamous Epithelial Cell,Urine 12 /hpf (0-4); Urobilinogen,Urine <2.0 mg/dL (<2.0); WBC,Urine 6 /hpf (0-5)
[2021-11-12 06:06] LABS: Glucose,Whole Blood 96 mg/dL (70-110)
[2021-11-12] MEDS: MIDODRINE 5 MG TAB PO SCH ×2 (06:13→11:59)
[2021-11-12] MEDS: LEVOTHYROXINE 50 MCG TAB PO SCH (06:13)
[2021-11-12] MEDS: PANTOPRAZOLE 40 MG TABLET PO SCH ×2 (06:13→16:57)
[2021-11-12 07:22] LABS: Anisocytosis Slight; Basophils % (A) 0 %; Eosinophils # (A) 0.1 k/uL (0-0.7); Eosinophils % (A) 2 %; HCT 29.5 % (34.0-46.0); HGB 8.9 gm/dL (11.4-16.0); Hypochromasia Marked; Lymphocytes # (A) 0.8 k/uL (1.0-4.8); Lymphocytes % (A) 14 %; MCH 27.3 pg (25.0-35.0); MCHC 30.1 g/dL (31.0-37.0); MCV 90.9 fL (80.0-100.0); Mean Platelet Volume 7.9; Monocytes # (A) 0.4 k/uL (0-1.0); Monocytes % (A) 6 %; Neutrophils # (A) 4.6 k/uL (1.3-7.7); Neutrophils % (A) 76 %; Platelet Count 256 k/uL (150-450); RBC 3.25 m/uL (3.80-5.40); RDW 19.5 % (11.5-15.5)
[2021-11-12 07:29] LABS: Potassium 3.8 mmol/L (3.5-5.1)
[2021-11-12] MEDS: HEPARIN SODIUM,PORCINE/PF 5,000 UNIT/0.5 ML SYRINGE SQ SCH ×2 (08:26→16:57)
[2021-11-12] MEDS: ERTAPENEM 1 GM in SODIUM CHLORIDE 0.9% 50 ML IVPB SCH (08:26)
--- NOTE | 2021-11-12 09:36 | P.PN ---
Subjective Principal diagnosis: Patient is a 76-year-old female seen in consultation for acute kidney injury. Unknown baseline renal function. Creatinine was 4.21 admission. Acute kidney injury from hypotension, blood pressure on admission was in the 70s. And with IV fluids her creatinine is improved. Today creatinine 0.8. Urine output is documented at 14 50 mL intake 360 She complains of nausea vomiting diarrhea which is ongoing known. Some abdominal discomfort. No fever chills. Mildly short of breath at times. Reformed weak unable to stand up. Past history Patient was recently admitted with septic shock and respiratory fa ilure in [place] early August 2021, 2 months ago. She subsequently went to rehab facility but left the rehab as she was not happy with the care. Patient then came to [place] and came to the hospital as she was unable to care for herself. Blood pressure has been low in the systolic 70s. States she had a daughter who was a diabetic and required renal replacement therapy but has now . Past Medical History Past Medical History: Asthma, Heart Failure, Diabetes Mellitus, Hypertension, Pulmonary Embolus (PE), Respiratory Disorder, Thyroid Disorder On examination Blood pressure 101/62, temperature 97.8, heart rate 61. 24-hour intake is 1450 output is documented at 360 mL's. General: Awake. No acute distress. HEENT: Head exam is unremarkable. LUNGS: Breath sounds decreased. HEART: Rate and Rhythm are regular. ABDOMEN: Soft, no distention. EXTREMITITES: No edema. Neurologically awake alert oriented. Profoundly weak no asterixis Assessment: 1. Acute kidney injury secondary to ATN secondary to hypotension. Creatinine 4.52 admission. Unknown baseline renal function. No hydronephrosis noted on kidney ultrasound. Creatinine is improved to 0.8 this morning 2. Recent sepsis in September 2021. Currently has gram-negative bacilli on urine culture, Klebsiella pneumonia with MDR oh and ESBL, urinalysis consistent with UTI, she is on ceftriaxone currently, 3. History of A. fib. 4. History of CHF. Unknown ejection fraction. 5. Hypomagnesemia from poor intake. Replaced. 6. Potassium improved to 3.8 7. Nausea vomiting diarrhea gastroenteritis, unresolved as of this morning. Patient is on antibiotic . 8. Anemia hemoglobin is 8.9, on admission was 11 likely this drop in hemoglobin is from hydration Plan: 1. Maintain her IV fluids at lactated Ringer's at 50 an hour until nausea vomiting diarrhea resolves, and appetite improved 2. Antibiotics per infectious disease was on the case 3. Watch for congestive heart failure. 4. Iron saturation Objective - Vital Signs Vital signs: Vital Signs Temp 97.5 F L 11/12/21 08:00 Pulse 96 11/12/21 08:00 Resp 18 11/12/21 08:00 BP 110/65 11/12/21 08:00 Pulse Ox 96 11/12/21 08:00 FiO2 Intake & Output 11/11/21 11/12/21 11/12/21 18:59 06:59 18:59 Intake Total 1176 240 Output Total 500 150 Balance 676 90 Intake: Intake, IV Titration 580 Amount Ertapenem 1 gm In Sodium 50 Chloride 0.9% 50 ml @ 100 mls/hr IVPB DAILY [facility] Rx #:[id number] Sodium Chloride 0.9% 1, 480 000 ml @ 100 mls/hr IV . Q10H [facility] Rx#:[id number] cefTRIAXone 1 gm In 50 Sodium Chloride 0.9% 50 ml @ 100 mls/hr IVPB Q24HR [facility] Rx#:[id number] Oral 596 240 Output: Urine 500 150 Uretheral (Perez) 500 Other: Voiding Method Diaper Diaper # Voids 1 - Labs CBC & Chem 7: 11/12/21 06:20 11/12/21 06:20 Labs: Abnormal Lab Results - Last 24 Hours (Table) 11/12/21 11/12/21 11/12/21 Range/Units 03:12 06:20 06:20 RBC 3.25 L (3.80-5.40) m/uL Hgb 8.9 L (11.4-16.0) gm/dL Hct 29.5 L (34.0-46.0) % MCHC 30.1 L (31.0-37.0) g/dL RDW 19.5 H (11.5-15.5) % Lymphocytes # 0.8 L (1.0-4.8) k/uL Chloride 109 H (98-107) mmol/L BUN 25 H (7-17) mg/dL Calcium 8.0 L (8.4-10.2) mg/dL Urine Protein Trace H (Negative) Urine Ketones Trace H (Negative) Ur Leukocyte Esterase Moderate H (Negative) Urine WBC 6 H (0-5) /hpf Ur Squamous Epith Cells 12 H (0-4) /hpf Urine Bacteria Rare H (None) /hpf Urine Mucus Rare H (None) /hpf Microbiology - Last 24 Hours (Table) 11/09/21 09:04 Urine Culture - Final Urine,Voided Klebsiella pneumoniae
[2021-11-12 11:49] LABS: Glucose,Whole Blood 115 mg/dL (70-110)
[2021-11-12] MEDS: polyethylene glycoL 3350 17 GM POWD.PACK PO SCH (11:57)
[2021-11-12] MEDS: LACTATED RINGERS 1,000 ML IV SCH (12:00)
[2021-11-12] MEDS ORDERED: METOCLOPRAMIDE 5 MG/ML 2 ML VIAL IVP PRN (14:13)
--- NOTE | 2021-11-12 14:21 | P.PN ---
Subjective Progress Note Date: 11/12/21 Principal diagnosis: weakness Patient had 2 episodes of slight vomiting the past 2 days. She states she only has abdominal pain when she throws up, denied any now. No diarrhea or constipation. Objective - Vital Signs Vital signs: Vital Signs Temp 97.5 F L 11/12/21 11:56 Pulse 87 11/12/21 11:56 Resp 15 11/12/21 11:56 BP 106/70 11/12/21 11:56 Pulse Ox 94 L 11/12/21 11:56 FiO2 Intake & Output 11/11/21 11/12/21 11/12/21 18:59 06:59 18:59 Intake Total 1176 240 Output Total 500 150 Balance 676 90 Intake: Intake, IV Titration 580 Amount Ertapenem 1 gm In Sodium 50 Chloride 0.9% 50 ml @ 100 mls/hr IVPB DAILY [facility] Rx #:[id number] Sodium Chloride 0.9% 1, 480 000 ml @ 100 mls/hr IV . Q10H [facility] Rx#:[id number] cefTRIAXone 1 gm In 50 Sodium Chloride 0.9% 50 ml @ 100 mls/hr IVPB Q24HR [facility] Rx#:[id number] Oral 596 240 Output: Urine 500 150 Uretheral (Rios) 500 Other: Voiding Method Diaper Diaper Diaper Incontinent # Voids 1 1 - Exam Constitutional: No acute distress, conversant, pleasant Eyes:Anicteric sclerae, moist conjunctiva, no lid-lag, PERRLA, ENMT: Oropharynx clear, no erythema, exudates Neck: Supple, FROM, no masses, or JVD, No carotid bruits, No thyromegaly Lungs: Clear to auscultation, Clear to percussion, Normal respiratory effort, no accessory muscle use Cardiovascular: Heart regular in rate and rhythm, No murmurs, gallops, or rubs, No peripheral edema Abdominal: Soft, Nontender, no guarding, rebound or rigidity, Normoactive bowel sounds, No hepatomegaly, No splenomegaly, No palpable mass Skin: Normal temperature, tone, texture, turgor, no induration, No subcutaneous nodules, No rash, lesions, No ulcers Extremities: No digital cyanosis, No clubbing, Pedal pulses intact and symmetrical, Radial pulses intact and symmetrical, No calf tenderness Psychiatric: Alert and oriented to person, place and time, appropriate affect, intact judgement Neuro: general weakness - Labs CBC & Chem 7: 11/12/21 06:20 11/12/21 06:20 Labs: Abnormal Lab Results - Last 24 Hours (Table) 11/12/21 11/12/21 11/12/21 Range/Units 03:12 06:20 06:20 RBC 3.25 L (3.80-5.40) m/uL Hgb 8.9 L (11.4-16.0) gm/dL Hct 29.5 L (34.0-46.0) % MCHC 30.1 L (31.0-37.0) g/dL RDW 19.5 H (11.5-15.5) % Lymphocytes # 0.8 L (1.0-4.8) k/uL Chloride 109 H (98-107) mmol/L BUN 25 H (7-17) mg/dL POC Glucose (mg/dL) (70-110) mg/dL Calcium 8.0 L (8.4-10.2) mg/dL Urine Protein Trace H (Negative) Urine Ketones Trace H (Negative) Ur Leukocyte Esterase Moderate H (Negative) Urine WBC 6 H (0-5) /hpf Ur Squamous Epith Cells 12 H (0-4) /hpf Urine Bacteria Rare H (None) /hpf Urine Mucus Rare H (None) /hpf 11/12/21 Range/Units 11:47 RBC (3.80-5.40) m/uL Hgb (11.4-16.0) gm/dL Hct (34.0-46.0) % MCHC (31.0-37.0) g/dL RDW (11.5-15.5) % Lymphocytes # (1.0-4.8) k/uL Chloride (98-107) mmol/L BUN (7-17) mg/dL POC Glucose (mg/dL) 115 H (70-110) mg/dL Calcium (8.4-10.2) mg/dL Urine Protein (Negative) Urine Ketones (Negative) Ur Leukocyte Esterase (Negative) Urine WBC (0-5) /hpf Ur Squamous Epith Cells (0-4) /hpf Urine Bacteria (None) /hpf Urine Mucus (None) /hpf Assessment and Plan Plan: Acute kidney injury Resolved. Likely secondary to the travel/dehydration IV fluids per nephro D/c rios cath Renal cysts on US CT abdomen done, no cysts or masses. ESBL UTI Consulted ID Need repeat urine cx Continue ertapenem. Hx of sick sinus syndrome, history of atrial fibrillation Was sinus bo on the monitor now NSR This was reported on the patient's medical records from last admission, however it is unclear why patient is not on anticoagulation Cardiology consulted, echo done--awaiting read Diabetes type 2 Controlled Hold oral hypoglycemics Sliding-scale insulin Hypomagnesemia Replaced General weakness/adult failure to thrive PT and OT Chronic Asthma Hypertension, Hypothyroidism All stable Resume meds DVT prophylaxis Heparin subcu Will likely need rehab. Anticipated discharge: 1 day
--- NOTE | 2021-11-12 15:36 | XR ---
EXAMINATION TYPE: XR abdomen 2V DATE OF EXAM: 11/12/2021 COMPARISON: NONE HISTORY: Nausea and vomiting TECHNIQUE: 3 views FINDINGS: Supine and upright views were obtained. No sign of intestinal obstruction or pneumoperitone um. There is some gas in the large bowel that could be some mild ileus. There is probably some atelec tasis at the lung bases. There clips from cholecystectomy. IMPRESSION: There is evidence for some intestinal ileus. No free air present
[2021-11-12 16:17] LABS: Glucose,Whole Blood 217 mg/dL (70-110)
[2021-11-12] MEDS: SENNOSIDES 8.6 MG TAB PO SCH (19:32)
[2021-11-12] MEDS: MELATONIN 3 MG TABLET PO SCH (19:32)
[2021-11-12] MEDS: DOCUSATE 100 MG CAP PO SCH (19:32)
[2021-11-13] MEDS: HEPARIN SODIUM,PORCINE/PF 5,000 UNIT/0.5 ML SYRINGE SQ SCH ×3 (01:04→15:18)
[2021-11-13] MEDS: LEVOTHYROXINE 50 MCG TAB PO SCH (05:30)
[2021-11-13 06:46] LABS: Glucose,Whole Blood 129 mg/dL (70-110)
[2021-11-13] MEDS: polyethylene glycoL 3350 17 GM POWD.PACK PO SCH (08:40)
[2021-11-13] MEDS: LACTATED RINGERS 1,000 ML IV SCH (08:40)
[2021-11-13] MEDS: PANTOPRAZOLE 40 MG TABLET PO SCH ×2 (08:41→17:41)
--- NOTE | 2021-11-13 10:30 | P.PN ---
Subjective Progress Note Date: 11/13/21 HISTORY OF PRESENT ILLNESS: This is a 76 year old female with a past medical history significant for hypertension, TIA, asthma, and recent prolonged hospitalization for apparent congestive heart failure and was intubated (in [place]). Patient has not yet established with a refractory technician since moving to [place]. We have been asked to see the patient in consultation for atrial fibrillation. Patient examined at the bedside. Patient states she presented to the hospital secondary to generalized weakness. She is looking to go to a rehab facility at discharge. The patient denies any chest pain or pressure. She denies shortness of breath. She does report occasional palpitations. The patient states that she was told she had atrial fibrillation when she was in [place] however she was not started on anticoagulation in the recent is unsure. There is been no documented atrial f ibrillation since admission. EKG on admission reveals multifocal atrial tachycardia. Telemetry this morning reveals sinus mechanism. The patient also states that she was told she would need a pacemaker in the future by physician in [place]. The patient is unsure of the reason for this. * EKG reveals multifocal atrial tachycardia. * Chest xray findings concerning for bronchitis, which may be infectious or inflammatory etiology. * Laboratory data: WBC 10.1. Hemoglobin 9.6. Platelet count 264. Sodium 136. Potassium 4.8. BUN 69. Creatinine 2.03. ProBNP 909. Troponin 0.044. 0.040. 0.053. * Current home cardiac medications include Midodrine 5mg TID 11/13/2021 Patient examined this morning at the bedside. Patient denies chest pain or pressure. Denies SOB. Patient is no longer connected to telemetry, however no atrial fibrillation was detected while on telemetry. She has had an event monitor placed. Echocardiogram completed revealing ejection fraction 50-55%. PHYSICAL EXAM: VITAL SIGNS: Reviewed. GENERAL: Well-developed in no acute distress. HEENT: Head is normocephalic. Pupils are equal, round. Sclerae anicteric. Mucous membranes of the mouth are moist. Neck supple. No JVD or thyromegaly LUNGS: Respirations even and unlabored. Lungs essentially clear to auscultation bilaterally. HEART: Regular rate and rhythm. S1 and S2 heard. ABDOMEN: Soft. Nondistended. Nontender. EXTREMITIES: Normal range of motion. No clubbing or cyanosis. Peripheral pulses intact. No lower extremity edema NEUROLOGIC: Awake and alert. Oriented x 3. ASSESSMENT: Generalized weakness Multifocal atrial tachycardia Acute renal failure Abnormal troponins, secondary to above, not indicative of acute coronary syndrome History of congestive heart failure, type unknown, echo pending History of hypertension History of TIA History of asthma Recent prolonged hospitalization in [place] for apparent congestive heart failure and respiratory failure requiring intubation PLAN: Patient has had event monitor placed to assess for atrial fibrillation or sick sinus syndrome Patient is currently stable from a cardiac standpoint Discharge per medicine. We will follow on an as needed basis. Nurse practitioner note has been reviewed by physician. Signing provider agrees with the documented findings, assessment, and plan of care. Objective - Vital Signs Vital signs: Vital Signs Temp 97.5 F L 11/13/21 08:00 Pulse 109 H 11/13/21 08:00 Resp 18 11/13/21 08:00 BP 129/80 11/13/21 08:00 Pulse Ox 92 L 11/13/21 08:00 FiO2 Intake & Output 11/12/21 11/13/21 11/13/21 18:59 06:59 18:59 Intake Total 0 Balance 0 Intake: Oral 0 Other: Voiding Method Diaper Diaper Incontinent Incontinent # Voids 1 1 - Labs CBC & Chem 7: 11/12/21 06:20 11/12/21 06:20 Labs: Abnormal Lab Results - Last 24 Hours (Table) 11/12/21 11/12/21 11/13/21 Range/Units 11:47 16:16 06:45 POC Glucose (mg/dL) 115 H 217 H 129 H (70-110) mg/dL
[2021-11-13] MEDS: ERTAPENEM 1 GM in SODIUM CHLORIDE 0.9% 50 ML IVPB SCH (10:55)
[2021-11-13 11:17] LABS: Glucose,Whole Blood 123 mg/dL (70-110)
--- NOTE | 2021-11-13 11:58 | CDI ---
Documentation Clarification Form Date: 11/13/2021 11:44:55 AM From: Rosa MoniqueFraserSAMY rodriguez, CCDS Admit Date: 11/08/2021 12:30:00 PM Patient Name: Crissy Goldsmith Visit Number: [id number] Discharge Date: ATTENTION: The Clinical Documentation Specialists (CDI) and [facility] Coding Staff appreciate your assistance in clarifying documentation. Please respond to the clarification below the line at the bottom and electronically sign. The CDI & [facility] Coding staff will review the response and follow-up if needed. Please note: Queries are made part of the Legal Health Record. If you have any questions, please contact the author of this message via ITS. Dr. Corwin Apple: Per the 11/08 H/P, the patient was recently hospitalized in an [facility], then discharged to rehab. The patient's family removed her from the rehab facility and transported her here. She was also diagnosed with right mandibular tooth infection, acute colitis & UTI. Assessment: TESS likely secondary to the travel and dehydration. Per the 11/12 Attending Progress Note: ESBL UTI. Additional clarification regarding the etiology of the UTI is requested. History/Risk Factors per the 11/08 H/P: Recent history as above. Asthma, CHF, Paroxysmal Atrial fibrillation, SSS, DM, Hypertension, PE, Clinical Indicators: Presented to the ED on 11/08 with family with Weakness and Pain all over. Unable to ambulate & had incontinence. Admit with TESS, Chest pain and Hypomagnesemia 11/09 UA: cloudy, 1+ Protein, trace blood, 1+ Bilirubin, Large Esterase, RBC 11, WBC 79. 11/09 Urine culture: Klebsiella pneumoniae. Treatment 11/08: Bladder Scan, Blood glucose monitoring, Midline, O2 2Lnc, IV Sublimaze 50 mcg x1, IV Zofran 4 mg x1, IV Mag Sulfate/Dextrose 100 mls @ 100 mls/hr x3, po Percocet & Tylenol, INH Ventolin prn, IV Na Chl 1,000 mls @ 100 mls/hr q10H, IV Na Chl 500 mls @ 999 mls/hr q31M. 11/09 Perez Catheter placed, IV Rocephin 50 mls @ 100 mls/hr q24H 11/11: IV Ertapenem 50 mls @ 100 mls/hr Daily. Please clarify the etiology of the UTI, if known: [ ] UTI related to Perez catheter [ ] Present on Admission [ ] Not Present on Admission [ ] UTI not related to Perez catheter [ ] Present on Admission [ ] Not Present on Admission [ ] Other condition, please specify [ ] Unable to determine (Template Last Revised: July 2020) UTI not related to Perez catheter [ ] Present on Admission MTDD
--- NOTE | 2021-11-13 13:18 | P.PN ---
Subjective Progress Note Date: 11/13/21 Principal diagnosis: weakness Patient is feeling better, nausea is resolving. No vomiting since yesterday. No fevers. No significant pain. Objective - Vital Signs Vital signs: Vital Signs Temp 97.5 F L 11/13/21 08:00 Pulse 109 H 11/13/21 08:00 Resp 18 11/13/21 08:00 BP 129/80 11/13/21 08:00 Pulse Ox 92 L 11/13/21 08:00 FiO2 Intake & Output 11/12/21 11/13/21 11/13/21 18:59 06:59 18:59 Intake Total 0 450 Balance 0 450 Intake: IV 450 Ertapenem 1 gm In Sodium 50 Chloride 0.9% 50 ml @ 100 mls/hr IVPB DAILY [facility] Rx #:[id number] Lactated Ringers 1,000 ml 400 @ 50 mls/hr IV .Q20H [facility] Rx#:[id number] Oral 0 Other: Voiding Method Diaper Diaper Incontinent Incontinent # Voids 1 1 - Exam Constitutional: No acute distress, conversant, pleasant Eyes:Anicteric sclerae, moist conjunctiva, no lid-lag, PERRLA, ENMT: Oropharynx clear, no erythema, exudates Neck: Supple, FROM, no masses, or JVD, No carotid bruits, No thyromegaly Lungs: Clear to auscultation, Clear to percussion, Normal respiratory effort, no accessory muscle use Cardiovascular: Heart regular in rate and rhythm, No murmurs, gallops, or rubs, No peripheral edema Abdominal: Soft, Nontender, no guarding, rebound or rigidity, Normoactive bowel sounds, No hepatomegaly, No splenomegaly, No palpable mass Skin: Normal temperature, tone, texture, turgor, no induration, No subcutaneous nodules, No rash, lesions, No ulcers Extremities: No digital cyanosis, No clubbing, Pedal pulses intact and symmetrical, Radial pulses intact and symmetrical, No calf tenderness Psychiatric: Alert and oriented to person, place and time, appropriate affect, intact judgement Neuro: general weakness - Labs CBC & Chem 7: 11/12/21 06:20 11/12/21 06:20 Labs: Abnormal Lab Results - Last 24 Hours (Table) 11/12/21 11/13/21 11/13/21 Range/Units 16:16 06:45 11:15 POC Glucose (mg/dL) 217 H 129 H 123 H (70-110) mg/dL Assessment and Plan Plan: Acute kidney injury Resolved. Likely secondary to the travel/dehydration IV fluids per nephro D/c rios cath Renal cysts on US CT abdomen done, no cysts or masses. ESBL UTI D.w ID planning for 7 days of IV abx after discharge to rehab Continue ertapenem. Hx of sick sinus syndrome, history of atrial fibrillation Was sinus bo on the monitor now NSR This was reported on the patient's medical records from last admission, however it is unclear why patient is not on anticoagulation Cardiology consulted, echo done--Looks ok normal EF Ileus/vomiting Add reglan and zofran prn Encouraged to ambulate Diabetes type 2 Controlled Hold oral hypoglycemics Sliding-scale insulin Hypomagnesemia Replaced General weakness/adult failure to thrive PT and OT Chronic Asthma Hypertension, Hypothyroidism All stable Resume meds DVT prophylaxis Heparin subcu Will likely need rehab. Anticipated discharge: 1 day
[2021-11-13] MEDS: METOCLOPRAMIDE 5 MG/ML 2 ML VIAL IVP SCH ×2 (13:43→17:41)
[2021-11-13 14:25] LABS: % Iron Saturation 15.48 (12.00-45.00)
[2021-11-13 16:38] LABS: Glucose,Whole Blood 132 mg/dL (70-110)
[2021-11-13] MEDS: DOCUSATE 100 MG CAP PO SCH (19:07)
[2021-11-13] MEDS: SENNOSIDES 8.6 MG TAB PO SCH (19:07)
[2021-11-13] MEDS: MELATONIN 3 MG TABLET PO SCH (19:07)
[2021-11-13 20:08] LABS: Glucose,Whole Blood 106 mg/dL (70-110)
[2021-11-14] MEDS: HEPARIN SODIUM,PORCINE/PF 5,000 UNIT/0.5 ML SYRINGE SQ SCH ×4 (00:41→23:28)
[2021-11-14] MEDS: METOCLOPRAMIDE 5 MG/ML 2 ML VIAL IVP SCH ×5 (00:41→23:30)
[2021-11-14] MEDS: LACTATED RINGERS 1,000 ML IV SCH ×2 (04:57→23:29)
[2021-11-14] MEDS: LEVOTHYROXINE 50 MCG TAB PO SCH (04:57)
[2021-11-14 06:42] LABS: Glucose,Whole Blood 127 mg/dL (70-110)
--- NOTE | 2021-11-14 06:48 | P.PN ---
Subjective Progress Note Date: 11/12/21 Principal diagnosis: ESBL Klebsiella urinary tract infection Patient is a 76 year female with multiple comorbidities presenting to the hospital where he is unable to take care of herself did have a evidence of ESBL Klebsiella urinary tract infection. On today's evaluation that is 11/12/2021 , the patient denies having any fever or chills, patient is still feeling weak and not feeling that way today denies any chest pain shortness of breath or cough no abdominal pain or diarrhea Objective - Vital Signs Vital signs: Vital Signs Temp 98.3 F 11/12/21 16:00 Pulse 81 11/12/21 16:00 Resp 17 11/12/21 16:00 BP 121/75 11/12/21 16:00 Pulse Ox 99 11/12/21 16:00 FiO2 Intake & Output 11/11/21 11/12/21 11/12/21 18:59 06:59 18:59 Intake Total 1176 240 0 Output Total 500 150 Balance 676 90 0 Intake: Intake, IV Titration 580 Amount Ertapenem 1 gm In Sodium 50 Chloride 0.9% 50 ml @ 100 mls/hr IVPB DAILY [facility] Rx #:[id number] Sodium Chloride 0.9% 1, 480 000 ml @ 100 mls/hr IV . Q10H [facility] Rx#:[id number] cefTRIAXone 1 gm In 50 Sodium Chloride 0.9% 50 ml @ 100 mls/hr IVPB Q24HR [facility] Rx#:[id number] Oral 596 240 0 Output: Urine 500 150 Uretheral (Perez) 500 Other: Voiding Method Diaper Diaper Diaper Incontinent # Voids 1 1 - Exam GENERAL DESCRIPTION: An elderly female lying in bed in no distress RESPIRATORY SYSTEM: Unlabored breathing , decreased breath sounds at bases HEART: S1 S2 regular rate and rhythm , ABDOMEN: Soft , no tenderness EXTREMITIES: No edema feet - Labs CBC & Chem 7: 11/12/21 06:20 11/12/21 06:20 Labs: Abnormal Lab Results - Last 24 Hours (Table) 11/12/21 11/12/21 11/12/21 Range/Units 03:12 06:20 06:20 RBC 3.25 L (3.80-5.40) m/uL Hgb 8.9 L (11.4-16.0) gm/dL Hct 29.5 L (34.0-46.0) % MCHC 30.1 L (31.0-37.0) g/dL RDW 19.5 H (11.5-15.5) % Lymphocytes # 0.8 L (1.0-4.8) k/uL Chloride 109 H (98-107) mmol/L BUN 25 H (7-17) mg/dL POC Glucose (mg/dL) (70-110) mg/dL Calcium 8.0 L (8.4-10.2) mg/dL Urine Protein Trace H (Negative) Urine Ketones Trace H (Negative) Ur Leukocyte Esterase Moderate H (Negative) Urine WBC 6 H (0-5) /hpf Ur Squamous Epith Cells 12 H (0-4) /hpf Urine Bacteria Rare H (None) /hpf Urine Mucus Rare H (None) /hpf 11/12/21 11/12/21 Range/Units 11:47 16:16 RBC (3.80-5.40) m/uL Hgb (11.4-16.0) gm/dL Hct (34.0-46.0) % MCHC (31.0-37.0) g/dL RDW (11.5-15.5) % Lymphocytes # (1.0-4.8) k/uL Chloride (98-107) mmol/L BUN (7-17) mg/dL POC Glucose (mg/dL) 115 H 217 H (70-110) mg/dL Calcium (8.4-10.2) mg/dL Urine Protein (Negative) Urine Ketones (Negative) Ur Leukocyte Esterase (Negative) Urine WBC (0-5) /hpf Ur Squamous Epith Cells (0-4) /hpf Urine Bacteria (None) /hpf Urine Mucus (None) /hpf Assessment and Plan (1) UTI (urinary tract infection) Current Visit: Yes Status: Acute Code(s): N39.0 - URINARY TRACT INFECTION, SITE NOT SPECIFIED SNOMED Code(s): 17370589 Plan: 1patient with a positive urine culture with ESBL Klebsiella possible mild cystitis in this patient did have a Perez catheter placed during this admission as well as her admission in [place] possible risk factor for the UTI clinically not behaving as a pyelonephritis or deep infection. 2 repeat urine positive however culture are currently pending 3Invanz 1 g daily to continue while waiting for the repeat urine to be finalized. Time with Patient: Less than 30
--- NOTE | 2021-11-14 06:50 | P.PN ---
Subjective Progress Note Date: 11/13/21 Principal diagnosis: ESBL Klebsiella urinary tract infection Patient is a 76 year female with multiple comorbidities presenting to the hospital where he is unable to take care of herself did have a evidence of ESBL Klebsiella urinary tract infection. On today's evaluation that is 11/13/2021 , the patient remains to be afebrile, patient is feeling better today, the patient denies any chest pain shortness of breath or cough no abdominal pain or diarrhea Objective - Vital Signs Vital signs: Vital Signs Temp 97.9 F 11/13/21 14:00 Pulse 63 11/13/21 14:00 Resp 18 11/13/21 14:00 BP 95/62 11/13/21 14:00 Pulse Ox 97 11/13/21 16:08 FiO2 Intake & Output 11/12/21 11/13/21 11/13/21 18:59 06:59 18:59 Intake Total 0 450 Balance 0 450 Weight 89.63 kg Intake: IV 450 Ertapenem 1 gm In Sodium 50 Chloride 0.9% 50 ml @ 100 mls/hr IVPB DAILY [facility] Rx #:[id number] Lactated Ringers 1,000 ml 400 @ 50 mls/hr IV .Q20H [facility] Rx#:[id number] Oral 0 Other: Voiding Method Diaper Diaper Incontinent Incontinent # Voids 1 1 - Exam GENERAL DESCRIPTION: An elderly female lying in bed in no distress RESPIRATORY SYSTEM: Unlabored breathing , decreased breath sounds at bases HEART: S1 S2 regular rate and rhythm , ABDOMEN: Soft , no tenderness EXTREMITIES: No edema feet - Labs CBC & Chem 7: 11/12/21 06:20 11/12/21 06:20 Labs: Abnormal Lab Results - Last 24 Hours (Table) 11/12/21 11/13/21 11/13/21 Range/Units 06:20 06:45 11:15 POC Glucose (mg/dL) 129 H 123 H (70-110) mg/dL Iron 35 L (50-170) ug/dL TIBC 227 L (228-460) ug/dL Transferrin 162.0 L (204.0-354.0) mg/dL Assessment and Plan (1) UTI (urinary tract infection) Current Visit: Yes Status: Acute Code(s): N39.0 - URINARY TRACT INFECTION, SITE NOT SPECIFIED SNOMED Code(s): 04397136 Plan: 1patient with a positive urine culture with ESBL Klebsiella possible mild cystitis in this patient did have a Perez catheter placed during this admission as well as her admission in [place] possible risk factor for the UTI clinically not behaving as a pyelonephritis or deep infection. 2 repeat urine positive however culture are currently pending 3patient seemed to have some clinical improvement and plan is for possible DC to the rehab today, we'll continue Invanz 1 g daily for 7 days on discharge finish course of therapy discussed with the medical team Time with Patient: Less than 30
[2021-11-14] MEDS: PANTOPRAZOLE 40 MG TABLET PO SCH ×2 (09:10→16:31)
[2021-11-14] MEDS: ERTAPENEM 1 GM in SODIUM CHLORIDE 0.9% 50 ML IVPB SCH (09:10)
[2021-11-14] MEDS: polyethylene glycoL 3350 17 GM POWD.PACK PO SCH (09:11)
[2021-11-14 11:58] LABS: Glucose,Whole Blood 128 mg/dL (70-110)
--- NOTE | 2021-11-14 15:19 | P.PN ---
Subjective Progress Note Date: 11/14/21 Patient this morning was eating her lunch. She has no acute complaints. No acute issues overnight. Objective - Vital Signs Vital signs: Vital Signs Temp 98.1 F 11/14/21 14:00 Pulse 91 11/14/21 14:00 Resp 18 11/14/21 14:00 BP 125/75 11/14/21 14:00 Pulse Ox 98 11/14/21 07:51 FiO2 Intake & Output 11/13/21 11/14/21 11/14/21 18:59 06:59 18:59 Intake Total 450 800 450 Balance 450 800 450 Weight 89.63 kg 97.5 kg Intake: IV 450 600 450 Ertapenem 1 gm In Sodium 50 50 Chloride 0.9% 50 ml @ 100 mls/hr IVPB DAILY [facility] Rx #:[id number] Lactated Ringers 1,000 ml 400 600 400 @ 50 mls/hr IV .Q20H [facility] Rx#:[id number] Oral 200 Other: Voiding Method Diaper Incontinent # Voids 2 - Exam General examination - Alert and Oriented 3 in NAD Heart - + S1S2 no murmurs Lungs - Clear to auscultation Abdomen soft NT ND +ve BS Extremities - No edema 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 Likely secondary to the travel/dehydration IV fluids per nephro D/c rios cath Renal cysts on US CT abdomen done, no cysts or masses. ESBL UTI D.w ID planning for 7 days of IV abx after discharge to rehab Continue ertapenem. Patient has a midline placed Hx of sick sinus syndrome, history of atrial fibrillation Was sinus bo on the monitor now NSR This was reported on the patient's medical records from last admission, however it is unclear why patient is not on anticoagulation Cardiology consulted, echo done--Looks ok normal EF Ileus/vomiting Add reglan and zofran prn Encouraged to ambulate Diabetes type 2 Controlled Hold oral hypoglycemics Sliding-scale insulin Hypomagnesemia Replaced General weakness/adult failure to thrive PT and OT Chronic Asthma Hypertension, Hypothyroidism All stable Resume meds DVT prophylaxis Heparin subcu Will likely need rehab. Anticipated discharge: Awaiting placement. Patient with a history of discharge to rehab
[2021-11-14 16:47] LABS: Glucose,Whole Blood 128 mg/dL (70-110)
[2021-11-14 20:52] LABS: Glucose,Whole Blood 120 mg/dL (70-110)
[2021-11-14] MEDS: SENNOSIDES 8.6 MG TAB PO SCH (20:57)
[2021-11-14] MEDS: DOCUSATE 100 MG CAP PO SCH (20:57)
[2021-11-14] MEDS: MELATONIN 3 MG TABLET PO SCH (20:57)
[2021-11-15] MEDS: METOCLOPRAMIDE 5 MG/ML 2 ML VIAL IVP SCH ×2 (05:42→12:33)
[2021-11-15] MEDS: LEVOTHYROXINE 50 MCG TAB PO SCH (05:42)
[2021-11-15] MEDS: polyethylene glycoL 3350 17 GM POWD.PACK PO SCH (06:41)
[2021-11-15] MEDS: HEPARIN SODIUM,PORCINE/PF 5,000 UNIT/0.5 ML SYRINGE SQ SCH ×3 (06:41→23:22)
[2021-11-15] MEDS: PANTOPRAZOLE 40 MG TABLET PO SCH (06:42)
[2021-11-15] MEDS: ERTAPENEM 1 GM in SODIUM CHLORIDE 0.9% 50 ML IVPB SCH (06:42)
[2021-11-15 06:58] LABS: Glucose,Whole Blood 99 mg/dL (70-110)
[2021-11-15 09:17] LABS: Anisocytosis Slight; HCT 33.3 % (34.0-46.0); HGB 9.9 gm/dL (11.4-16.0); Hypochromasia Marked; MCH 27.4 pg (25.0-35.0); MCHC 29.7 g/dL (31.0-37.0); MCV 92.2 fL (80.0-100.0); Mean Platelet Volume 7.5; Platelet Count 276 k/uL (150-450); RBC 3.61 m/uL (3.80-5.40); RDW 19.1 % (11.5-15.5); WBC 6.7 k/uL (3.8-10.6)
[2021-11-15 10:52] LABS: Glucose,Whole Blood 135 mg/dL (70-110)
[2021-11-15] MEDS ORDERED: diphenhydrAMINE 25 MG CAP PO SCH (11:30)
[2021-11-15] MEDS: predniSONE 20 MG TAB PO SCH (12:11)
--- NOTE | 2021-11-15 14:36 | P.PN ---
Subjective Progress Note Date: 11/15/21 Patient this morning states that she feels tired. Later in the day as notified by the nurse that patient had rash on her chest and back that was itching. I went back to assess the patient and she states that the rash is not itching. However patient does have a rash that's on her chest and back. Objective - Vital Signs Vital signs: Vital Signs Temp 97.7 F 11/15/21 14:00 Pulse 101 H 11/15/21 14:00 Resp 16 11/15/21 14:00 BP 121/67 11/15/21 14:00 Pulse Ox 94 L 11/15/21 14:00 FiO2 Intake & Output 11/14/21 11/15/21 11/15/21 18:59 06:59 18:59 Intake Total 450 Output Total 400 Balance 450 -400 Weight 101 kg Intake: IV 450 Ertapenem 1 gm In Sodium 50 Chloride 0.9% 50 ml @ 100 mls/hr IVPB DAILY [facility] Rx #:[id number] Lactated Ringers 1,000 ml 400 @ 50 mls/hr IV .Q20H [facility] Rx#:[id number] Output: Urine 400 Other: Voiding Method Diaper Diaper Incontinent Incontinent External Catheter # Voids 2 1 # Bowel Movements 1 1 - Exam General examination - Alert and Oriented 3 in NAD Heart - + S1S2 no murmurs Lungs - Clear to auscultation Abdomen soft NT ND +ve BS Extremities - No edema skin: Rash on chest and back [employer] - Moving all 4 extremities spontaneously Psych - Calm and cooperative - Labs CBC & Chem 7: 11/15/21 08:40 11/12/21 06:20 Labs: Abnormal Lab Results - Last 24 Hours (Table) 11/14/21 11/14/21 11/15/21 Range/Units 16:46 20:48 08:40 RBC 3.61 L (3.80-5.40) m/uL Hgb 9.9 L (11.4-16.0) gm/dL Hct 33.3 L (34.0-46.0) % MCHC 29.7 L (31.0-37.0) g/dL RDW 19.1 H (11.5-15.5) % POC Glucose (mg/dL) 128 H 120 H (70-110) mg/dL 11/15/21 Range/Units 10:50 RBC (3.80-5.40) m/uL Hgb (11.4-16.0) gm/dL Hct (34.0-46.0) % MCHC (31.0-37.0) g/dL RDW (11.5-15.5) % POC Glucose (mg/dL) 135 H (70-110) mg/dL Assessment and Plan Assessment: Acute kidney injury Resolved. Likely secondary to the travel/dehydration IV fluids per nephro D/c rios cath Renal cysts on US CT abdomen done, no cysts or masses. ESBL UTI Patient received 2 doses of Invanz. Holding Invanz for now as his conservative drug ALLERGY. Discussed with infectious disease about switching antibiotics Patient has a midline placed Rash on back and chest that is not itching -Concern for possible drug ALLERGY -Holding Invanz -Start prednisone Hx of sick sinus syndrome, history of atrial fibrillation Was sinus bo on the monitor now NSR This was reported on the patient's medical records from last admission, however it is unclear why patient is not on anticoagulation Cardiology consulted, echo done--Looks ok normal EF Ileus/vomiting Add reglan and zofran prn Encouraged to ambulate Diabetes type 2 Controlled Hold oral hypoglycemics Sliding-scale insulin Hypomagnesemia Replaced General weakness/adult failure to thrive PT and OT Chronic Iron deficiency anemia -> patient denies any overt signs of bleeding and hemoglobin stable. Patient instructed to call PCP for further workup Hypertension, Hypothyroidism All stable Resume meds DVT prophylaxis Heparin subcu Will likely need rehab. Anticipated discharge: Awaiting placement. Awaiting for infectious disease to give recommendations on an alternative antibiotic since patient appears to have had a drug ALLERGY to Invanz.
[2021-11-15 16:43] LABS: Glucose,Whole Blood 152 mg/dL (70-110)
[2021-11-15 20:19] LABS: Glucose,Whole Blood 174 mg/dL (70-110)
[2021-11-15] MEDS: DOCUSATE 100 MG CAP PO SCH (20:25)
[2021-11-15] MEDS: SENNOSIDES 8.6 MG TAB PO SCH (20:25)
[2021-11-15] MEDS: LACTATED RINGERS 1,000 ML IV SCH (20:25)
[2021-11-15] MEDS: MELATONIN 3 MG TABLET PO SCH (20:25)
--- NOTE | 2021-11-15 22:23 | XR ---
EXAMINATION TYPE: XR chest 1V portable DATE OF EXAM: 11/15/2021 COMPARISON: 11/08/2021 HISTORY: Cough TECHNIQUE: Single view FINDINGS: There is some blunting of the costophrenic angles. No obvious heart failure. There is left axillary implanted device. There are clips from cholecystectomy. IMPRESSION: Bilateral pleural effusions and basilar atelectasis. This appears not significantly diffe rent than last exam.
[2021-11-16] MEDS: LEVOTHYROXINE 50 MCG TAB PO SCH (05:00)
[2021-11-16 06:58] LABS: Glucose,Whole Blood 144 mg/dL (70-110)
[2021-11-16] MEDS: polyethylene glycoL 3350 17 GM POWD.PACK PO SCH (07:19)
[2021-11-16] MEDS: HEPARIN SODIUM,PORCINE/PF 5,000 UNIT/0.5 ML SYRINGE SQ SCH ×2 (07:20→16:37)
[2021-11-16] MEDS: predniSONE 20 MG TAB PO SCH (07:20)
--- NOTE | 2021-11-16 08:52 | P.PN ---
Subjective Progress Note Date: 11/14/21 Principal diagnosis: ESBL Klebsiella urinary tract infection Patient is a 76 year female with multiple comorbidities presenting to the hospital where he is unable to take care of herself did have a evidence of ESBL Klebsiella urinary tract infection. On today's evaluation that is 11/14/2021 , the patient continues to be afebrile, patient is breathing comfortably on room air, the patient denies any chest pain shortness of breath or cough no abdominal pain or diarrhea Objective - Vital Signs Vital signs: Vital Signs Temp 98.7 F 11/14/21 07:51 Pulse 90 11/14/21 07:51 Resp 16 11/14/21 07:51 BP 128/77 11/14/21 07:51 Pulse Ox 98 11/14/21 07:51 FiO2 Intake & Output 11/13/21 11/14/21 11/14/21 18:59 06:59 18:59 Intake Total 450 800 450 Balance 450 800 450 Weight 89.63 kg 97.5 kg Intake: IV 450 600 450 Ertapenem 1 gm In Sodium 50 50 Chloride 0.9% 50 ml @ 100 mls/hr IVPB DAILY [facility] Rx #:[id number] Lactated Ringers 1,000 ml 400 600 400 @ 50 mls/hr IV .Q20H [facility] Rx#:[id number] Oral 200 Other: Voiding Method Diaper Incontinent # Voids 2 - Exam GENERAL DESCRIPTION: An elderly female lying in bed in no distress RESPIRATORY SYSTEM: Unlabored breathing , decreased breath sounds at bases HEART: S1 S2 regular rate and rhythm , ABDOMEN: Soft , no tenderness EXTREMITIES: No edema feet - Labs CBC & Chem 7: 11/15/21 08:40 11/12/21 06:20 Labs: Abnormal Lab Results - Last 24 Hours (Table) 11/12/21 11/13/21 11/14/21 Range/Units 06:20 16:36 06:41 POC Glucose (mg/dL) 132 H 127 H (70-110) mg/dL Iron 35 L (50-170) ug/dL TIBC 227 L (228-460) ug/dL Transferrin 162.0 L (204.0-354.0) mg/dL 11/14/21 Range/Units 11:56 POC Glucose (mg/dL) 128 H (70-110) mg/dL Iron (50-170) ug/dL TIBC (228-460) ug/dL Transferrin (204.0-354.0) mg/dL Assessment and Plan (1) UTI (urinary tract infection) Current Visit: Yes Status: Acute Code(s): N39.0 - URINARY TRACT INFECTION, SITE NOT SPECIFIED SNOMED Code(s): 28206806 Plan: 1patient with a positive urine culture with ESBL Klebsiella possible mild cystitis in this patient did have a Perez catheter placed during this admission as well as her admission in [place] possible risk factor for the UTI clinically not behaving as a pyelonephritis or deep infection. 2 repeat urine positive however culture are currently pending 3patient seemed to have some clinical improvement on Invanz 1 g daily which will be continued for 7 days on discharge any close outpatient follow-up Time with Patient: Less than 30
--- NOTE | 2021-11-16 08:53 | P.PN ---
Subjective Progress Note Date: 11/15/21 Principal diagnosis: ESBL Klebsiella urinary tract infection Patient is a 76 year female with multiple comorbidities presenting to the hospital where he is unable to take care of herself did have a evidence of ESBL Klebsiella urinary tract infection. On today's evaluation that is 11/15/2021 , the patient remains to be afebrile, patient is breathing comfortably on room air, the patient denies any chest pain shortness of breath or cough no abdominal pain or diarrhea, patient apparently has developed a rash and itching concern for possibility Invanz related which has been put on hold Objective - Vital Signs Vital signs: Vital Signs Temp 97.7 F 11/15/21 14:00 Pulse 101 H 11/15/21 14:00 Resp 16 11/15/21 14:00 BP 121/67 11/15/21 14:00 Pulse Ox 94 L 11/15/21 14:00 FiO2 Intake & Output 11/14/21 11/15/21 11/15/21 18:59 06:59 18:59 Intake Total 450 Output Total 400 Balance 450 -400 Weight 101 kg Intake: IV 450 Ertapenem 1 gm In Sodium 50 Chloride 0.9% 50 ml @ 100 mls/hr IVPB DAILY [facility] Rx #:[id number] Lactated Ringers 1,000 ml 400 @ 50 mls/hr IV .Q20H [facility] Rx#:[id number] Output: Urine 400 Other: Voiding Method Diaper Diaper Incontinent Incontinent External Catheter # Voids 2 1 # Bowel Movements 1 1 - Exam GENERAL DESCRIPTION: An elderly female lying in bed in no distress RESPIRATORY SYSTEM: Unlabored breathing , decreased breath sounds at bases HEART: S1 S2 regular rate and rhythm , ABDOMEN: Soft , no tenderness EXTREMITIES: No edema feet - Labs CBC & Chem 7: 11/15/21 08:40 11/12/21 06:20 Labs: Abnormal Lab Results - Last 24 Hours (Table) 11/14/21 11/14/21 11/15/21 Range/Units 16:46 20:48 08:40 RBC 3.61 L (3.80-5.40) m/uL Hgb 9.9 L (11.4-16.0) gm/dL Hct 33.3 L (34.0-46.0) % MCHC 29.7 L (31.0-37.0) g/dL RDW 19.1 H (11.5-15.5) % POC Glucose (mg/dL) 128 H 120 H (70-110) mg/dL 11/15/21 Range/Units 10:50 RBC (3.80-5.40) m/uL Hgb (11.4-16.0) gm/dL Hct (34.0-46.0) % MCHC (31.0-37.0) g/dL RDW (11.5-15.5) % POC Glucose (mg/dL) 135 H (70-110) mg/dL Assessment and Plan (1) UTI (urinary tract infection) Current Visit: Yes Status: Acute Code(s): N39.0 - URINARY TRACT INFECTION, SITE NOT SPECIFIED SNOMED Code(s): 48307757 Plan: 1patient with a positive urine culture with ESBL Klebsiella possible mild cystitis in this patient did have a Perez catheter placed during this admission as well as her admission in [place] possible risk factor for the UTI clinically not behaving as a pyelonephritis or deep infection. 2 repeat urine not significantly positive and apparently cultures were not done 3patient has received 3 days of Invanz which should be enough for a cystitis now with developing a rash possibly related to Invanz to discontinue Invanz and no need for any antibiotic on discharge this was discussed with the admitting team Time with Patient: Less than 30
[2021-11-16 11:35] LABS: Glucose,Whole Blood 157 mg/dL (70-110)
--- NOTE | 2021-11-16 13:53 | P.PN ---
Subjective Progress Note Date: 11/16/21 Patient states that the itchiness and rash is improving. Although patient denied any itchiness or rash yesterday. Patient stated that she is looking forward to going to rehab and wants to get out of the hospital as soon as possible. Unfortunately I discussed with the outpatient case manager who said that the facility she is accepted to are having issues with her prior authorization. Patient was playing C4M on the phone when I walked in. Objective - Vital Signs Vital signs: Vital Signs Temp 97.6 F 11/16/21 07:39 Pulse 81 11/16/21 07:39 Resp 18 11/16/21 07:39 BP 98/65 11/16/21 07:39 Pulse Ox 94 L 11/16/21 07:39 FiO2 Intake & Output 11/15/21 11/16/21 11/16/21 18:59 06:59 18:59 Intake Total 400 296 Balance 400 296 Weight 101 kg 85.5 kg Intake: IV 400 Lactated Ringers 1,000 ml 400 @ 50 mls/hr IV .Q20H [facility] Rx#:[id number] Oral 296 Other: Voiding Method Diaper Diaper Incontinent Incontinent External Catheter External Catheter # Voids 1 # Bowel Movements 1 1 - Exam General examination - Alert and Oriented 3 in NAD, patient appears chronically debilitated Heart - + S1S2 no murmurs Lungs - Clear to auscultation Abdomen soft NT ND +ve BS Extremities - No edema skin: Rash on chest and back 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 Likely secondary to the travel/dehydration Patient of fluids D/c rios cath Renal cysts on US CT abdomen done, no cysts or masses. ESBL UTI Patient received 3 doses of Invanz. Unfortunately the patient developed a rash so had to be discontinued. Repeat UA shows resolution of the UTI. Per infectious disease no need for further antibiotics. Patient will need to midline removed prior to transfer to longterm facility Rash on back and chest -Concern for possible drug ALLERGY -Holding Invanz -Start prednisone -Improving Hx of sick sinus syndrome, history of atrial fibrillation Was sinus bo on the monitor now NSR This was reported on the patient's medical records from last admission, however it is unclear why patient is not on anticoagulation Cardiology consulted, echo done--Looks ok normal EF Ileus/vomiting Add reglan and zofran prn Encouraged to ambulate Diabetes type 2 Controlled Hold oral hypoglycemics Sliding-scale insulin Hypomagnesemia Replaced General weakness/adult failure to thrive PT and OT Chronic Iron deficiency anemia -> patient denies any overt signs of bleeding and hemoglobin stable. Patient instructed to call PCP for further workup Hypertension, Hypothyroidism All stable Resume meds DVT prophylaxis Heparin subcu Will likely need rehab. Anticipated discharge: Awaiting placement. Per outpatient case manager awaiting for prior authorization
[2021-11-16 17:02] LABS: Glucose,Whole Blood 158 mg/dL (70-110)
[2021-11-16] MEDS: SENNOSIDES 8.6 MG TAB PO SCH (20:21)
[2021-11-16] MEDS: DOCUSATE 100 MG CAP PO SCH (20:21)
[2021-11-16] MEDS: MELATONIN 3 MG TABLET PO SCH (20:22)
[2021-11-16 20:59] LABS: Glucose,Whole Blood 180 mg/dL (70-110)
[2021-11-17] MEDS: HEPARIN SODIUM,PORCINE/PF 5,000 UNIT/0.5 ML SYRINGE SQ SCH ×4 (00:06→23:57)
[2021-11-17] MEDS: LEVOTHYROXINE 50 MCG TAB PO SCH (05:12)
[2021-11-17 07:07] LABS: Glucose,Whole Blood 103 mg/dL (70-110)
[2021-11-17] MEDS: predniSONE 20 MG TAB PO SCH (08:11)
[2021-11-17] MEDS: polyethylene glycoL 3350 17 GM POWD.PACK PO SCH (08:11)
[2021-11-17] MEDS: LACTATED RINGERS 1,000 ML IV SCH ×2 (08:12→14:13)
--- NOTE | 2021-11-17 09:20 | P.PN ---
Subjective Progress Note Date: 11/16/21 Principal diagnosis: ESBL Klebsiella urinary tract infection Patient is a 76 year female with multiple comorbidities presenting to the hospital where he is unable to take care of herself did have a evidence of ESBL Klebsiella urinary tract infection. On today's evaluation that is 11/16/2021 , the patient continues to be afebrile, patient is breathing comfortably on room air, the patient denies chest pain shortness of breath or cough no abdominal pain or diarrhea, patient rash has decreased intensity Objective - Vital Signs Vital signs: Vital Signs Temp 97.6 F 11/16/21 07:39 Pulse 81 11/16/21 07:39 Resp 18 11/16/21 07:39 BP 98/65 11/16/21 07:39 Pulse Ox 94 L 11/16/21 07:39 FiO2 Intake & Output 11/15/21 11/16/21 11/16/21 18:59 06:59 18:59 Intake Total 400 296 Balance 400 296 Weight 101 kg 85.5 kg Intake: IV 400 Lactated Ringers 1,000 ml 400 @ 50 mls/hr IV .Q20H [facility] Rx#:[id number] Oral 296 Other: Voiding Method Diaper Diaper Incontinent Incontinent External Catheter External Catheter # Voids 1 # Bowel Movements 1 1 - Exam GENERAL DESCRIPTION: An elderly female lying in bed in no distress RESPIRATORY SYSTEM: Unlabored breathing , decreased breath sounds at bases HEART: S1 S2 regular rate and rhythm , ABDOMEN: Soft , no tenderness EXTREMITIES: No edema feet - Labs CBC & Chem 7: 11/15/21 08:40 11/12/21 06:20 Labs: Abnormal Lab Results - Last 24 Hours (Table) 11/15/21 11/15/21 11/16/21 Range/Units 16:41 20:14 06:57 POC Glucose (mg/dL) 152 H 174 H 144 H (70-110) mg/dL 11/16/21 Range/Units 11:34 POC Glucose (mg/dL) 157 H (70-110) mg/dL Assessment and Plan (1) UTI (urinary tract infection) Current Visit: Yes Status: Acute Code(s): N39.0 - URINARY TRACT INFECTION, SITE NOT SPECIFIED SNOMED Code(s): 50477316 Plan: 1patient with a positive urine culture with ESBL Klebsiella possible mild cystitis in this patient did have a Perez catheter placed during this admission as well as her admission in [place] possible risk factor for the UTI clinically not behaving as a pyelonephritis or deep infection. 2 repeat urine not significantly positive however cultures were not done at [facility] pharmacy 3patient has received 3 days of Invanz which should be enough for a cystitis, no need for any antibiotic on discharge Time with Patient: Less than 30
[2021-11-17 09:48] VITALS: BMI 31.4
--- NOTE | 2021-11-17 11:21 | P.PN ---
Subjective Progress Note Date: 11/17/21 Patient says that she was slightly nauseous this morning but not feels much better. She is wondering if she can go home. I told patient she can go home as long as she feels she can take care of herself or someone can take care of her. She states that her is in the 80s and cannot take her. Patient said she is amenable to waiting for a bed at a fdc facility. Objective - Vital Signs Vital signs: Vital Signs Temp 98.1 F 11/17/21 08:00 Pulse 96 11/17/21 08:00 Resp 15 11/17/21 08:00 BP 143/91 11/17/21 08:00 Pulse Ox 95 11/17/21 08:27 FiO2 Intake & Output 11/16/21 11/17/21 11/17/21 18:59 06:59 18:59 Intake Total 888 Output Total 200 300 Balance 688 -300 Weight 85.5 kg 85.5 kg Intake: Oral 888 Output: Urine 200 300 Other: Voiding Method Diaper Incontinent External Catheter # Voids 1 # Bowel Movements 1 - Exam General examination - Alert and Oriented 3 in NAD, patient appears chronically debilitated Heart - + S1S2 no murmurs Lungs - Clear to auscultation Abdomen soft NT ND +ve BS Extremities - No edema skin: Rash on chest and back 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 Likely secondary to the travel/dehydration Patient of fluids D/c rios cath Renal cysts on US CT abdomen done, no cysts or masses. ESBL UTI Patient received 3 doses of Invanz. Unfortunately the patient developed a rash so had to be discontinued. Repeat UA shows resolution of the UTI. Per infectious disease no need for further antibiotics. Patient will need to midline removed prior to transfer to fdc facility Rash on back and chest -Concern for possible drug ALLERGY -Holding Invanz -Start prednisone -Improving Hx of sick sinus syndrome, history of atrial fibrillation Was sinus bo on the monitor now NSR This was reported on the patient's medical records from last admission, however it is unclear why patient is not on anticoagulation Cardiology consulted, echo done--Looks ok normal EF Ileus/vomiting Add reglan and zofran prn Encouraged to ambulate Diabetes type 2 Controlled Hold oral hypoglycemics Sliding-scale insulin Hypomagnesemia Replaced General weakness/adult failure to thrive PT and OT Chronic Iron deficiency anemia -> patient denies any overt signs of bleeding and hemoglobin stable. Patient instructed to call PCP for further workup Hypertension, Hypothyroidism All stable Resume meds DVT prophylaxis Heparin subcu Will likely need rehab. Anticipated discharge: Awaiting placement. Per community case manager awaiting for prior authorization
[2021-11-17 11:33] LABS: Glucose,Whole Blood 142 mg/dL (70-110)
[2021-11-17 16:40] LABS: Glucose,Whole Blood 157 mg/dL (70-110)
[2021-11-17 20:31] LABS: Glucose,Whole Blood 151 mg/dL (70-110)
[2021-11-17] MEDS: MELATONIN 3 MG TABLET PO SCH (21:24)
[2021-11-17] MEDS: DOCUSATE 100 MG CAP PO SCH (21:25)
[2021-11-17] MEDS: SENNOSIDES 8.6 MG TAB PO SCH (21:25)
[2021-11-17] MEDS ORDERED: diphenhydrAMINE 25 MG CAP PO STA (23:44)
--- NOTE | 2021-11-18 00:50 | P.PN ---
Subjective Progress Note Date: 11/17/21 Principal diagnosis: ESBL Klebsiella urinary tract infection Patient is a 76 year female with multiple comorbidities presenting to the hospital where he is unable to take care of herself did have a evidence of ESBL Klebsiella urinary tract infection. On today's evaluation that is 11/17/2021 , the patient is afebrile, patient is breathing comfortably on room air, the patient denies chest pain shortness of breath or cough no abdominal pain or diarrhea, patient rash has decreased intensity, patient is currently waiting for placement Objective - Vital Signs Vital signs: Vital Signs Temp 98.1 F 11/17/21 08:00 Pulse 96 11/17/21 08:00 Resp 15 11/17/21 08:00 BP 143/91 11/17/21 08:00 Pulse Ox 95 11/17/21 08:27 FiO2 Intake & Output 11/16/21 11/17/21 11/17/21 18:59 06:59 18:59 Intake Total 888 Output Total 200 300 Balance 688 -300 Weight 85.5 kg 85.5 kg Intake: Oral 888 Output: Urine 200 300 Other: Voiding Method Diaper Incontinent External Catheter # Voids 1 # Bowel Movements 1 - Exam GENERAL DESCRIPTION: An elderly female lying in bed in no distress RESPIRATORY SYSTEM: Unlabored breathing , decreased breath sounds at bases HEART: S1 S2 regular rate and rhythm , ABDOMEN: Soft , no tenderness EXTREMITIES: No edema feet - Labs CBC & Chem 7: 11/15/21 08:40 11/12/21 06:20 Labs: Abnormal Lab Results - Last 24 Hours (Table) 11/16/21 11/16/21 11/17/21 Range/Units 17:00 20:58 11:32 POC Glucose (mg/dL) 158 H 180 H 142 H (70-110) mg/dL Assessment and Plan (1) UTI (urinary tract infection) Current Visit: Yes Status: Acute Code(s): N39.0 - URINARY TRACT INFECTION, SITE NOT SPECIFIED SNOMED Code(s): 30952034 Plan: 1patient with a positive urine culture with ESBL Klebsiella possible mild cystitis in this patient did have a Perez catheter placed during this admission as well as her admission in [place] possible risk factor for the UTI clinically not behaving as a pyelonephritis or deep infection. 2 repeat urine not significantly positive however cultures were not done at [facility] 3patient has received 3 days of Invanz which should be enough for a cystitis, and the patient seemed to be currently doing well off antibiotic therapy Time with Patient: Less than 30
[2021-11-18] MEDS ORDERED: ASPIRIN 81 MG PO STA (05:02)
[2021-11-18] MEDS: LACTATED RINGERS 1,000 ML IV SCH (05:10)
[2021-11-18] MEDS: LEVOTHYROXINE 50 MCG TAB PO SCH (05:12)
--- NOTE | 2021-11-18 05:21 | P.EN ---
A- team: Indication: Chest pain Arrived on Scene to find: Patient complaining of substernal sharp pleuritic chest discomfort, 8 out of 10, sudden onset 30 minutes ago, nonradiating, with no alleviating factors. Nonradiating, without associated nausea, diaphoresis, or dizziness. Vital signs reviewed: BP 138/62, SpO2 98% on 4 L is an option, pulse 93 Patient seen and examined at bedside. General: [non toxic], [no distress], [appears at stated age] Derm: [warm], [dry] Head: [atraumatic], [normocephalic], [symmetric] Eyes: [EOMI], [no lid lag], [anicteric sclera] Mouth: [no lip lesion], [mucus membranes moist] Cardiovascular: [S1S2 reg], [no murmur], [positive posterior tibial pulse bilateral], Lungs: Some scattered rhonchi, no rales or wheezing appreciated, [no accessory muscle use] Abdominal: [soft], [ nontender to palpation], [no guarding], [no appreciable organomegaly] Ext: [no gross muscle atrophy], [no edema], [no contractures], no calf tenderness Neuro: [ CN II-XI grossly intact], [no focal neuro deficits] Psych: [Alert], [oriented], [appropriate affect] Assessment: Chest pain Plan: EKG reviewed showing T-wave inversion in the precordial leads, new from EKG obtained during admission Aspirin 325 mg ordered Cardiology notified Cardiac monitoring D-dimer and troponin ordered A Total of 35 minutes of critical care time was spent on the complex care of this patient.
[2021-11-18] MEDS ORDERED: HEPARIN SODIUM 1,000 UN/ML (10ML VL) IV ONE (06:17)
[2021-11-18] MEDS ORDERED: HEPARIN SODIUM 1,000 UN/ML (10ML VL) IV PRN (06:17)
[2021-11-18 06:33] LABS: Anisocytosis Slight; Basophils # (A) 0.1 k/uL (0-0.2); Basophils % (A) 1 %; Eosinophils % (A) 0 %; HCT 33.1 % (34.0-46.0); HGB 9.9 gm/dL (11.4-16.0); Hypochromasia Marked; Lymphocytes # (A) 1.3 k/uL (1.0-4.8); Lymphocytes % (A) 18 %; MCHC 29.9 g/dL (31.0-37.0); MCV 90.3 fL (80.0-100.0); Mean Platelet Volume 7.8; Monocytes # (A) 0.7 k/uL (0-1.0); Monocytes % (A) 9 %; Neutrophils # (A) 5.3 k/uL (1.3-7.7); Neutrophils % (A) 70 %; Platelet Count 317 k/uL (150-450); RBC 3.67 m/uL (3.80-5.40); RDW 19.2 % (11.5-15.5); WBC 7.6 k/uL (3.8-10.6)
[2021-11-18 06:44] LABS: Partial Thromboplastin Time 30.4 sec (22.0-30.0)
[2021-11-18] MEDS ORDERED: ALPRAZolam 0.25 MG TAB PO STA (06:45)
[2021-11-18 06:59] LABS: Glucose,Whole Blood 107 mg/dL (70-110)
--- NOTE | 2021-11-18 07:03 | XR ---
EXAMINATION TYPE: XR chest 1V portable DATE OF EXAM: 11/18/2021 4:50 AM COMPARISON: Chest radiograph from 11/15/2021. TECHNIQUE: XR chest 1V portable Frontal view of the chest. CLINICAL INDICATION:Female, 76 years old with history of Resp distress; FINDINGS: Lungs/Pleura: There is no evidence of focal consolidation, or pneumothorax. Similar bilateral pleura l effusions. Pulmonary vascularity: Unremarkable. Heart/mediastinum: Cardiomediastinal silhouette is enlarged and stable. Musculoskeletal: No acute osseous pathology. Lines: Right PICC with tip terminating at the level of the clavicle. IMPRESSION: 1. Bilateral pleural effusions with significant change from prior. 2. Similar right PICC line terminating within the right brachiocephalic vein.
[2021-11-18] MEDS ORDERED: FUROSEMIDE 10 MG/ML 4 ML VIAL IV STA (07:34)
[2021-11-18] MEDS: HEPARIN SOD,PORK IN 0.45% NACL 25,000 UNIT in 0.45% NACL 1 250ML.BAG IV SCH (07:46)
[2021-11-18 09:58] LABS: African American GFR (CKD) >90 (>60 ml/min/1.73 sqM); Anion Gap 2 mmol/L; Blood Urea Nitrogen 11 mg/dL (7-17); Calcium 8.5 mg/dL (8.4-10.2); Carbon Dioxide 38 mmol/L (22-30); Chloride 100 mmol/L (98-107); Glucose 103 mg/dL (74-99); Magnesium 1.2 mg/dL (1.6-2.3); Non-African American GFR(CKD) 85 (>60 ml/min/1.73 sqM); Potassium 4.1 mmol/L (3.5-5.1); Sodium 140 mmol/L (137-145)
--- NOTE | 2021-11-18 10:59 | P.PN ---
Subjective Progress Note Date: 11/18/21 Patient this morning appears more lethargic. She was given one-time dose of Ativan last night. She stated that she was short of breath last night. A team was called for her sudden shortness of breath. Patient had a chest x-ray done that showed worsening bilateral pleural effusions. Patient's d-dimer troponin were also elevated. CTA chest ordered to rule out PE. Patient started on heparin drip and cardiology consulted. Objective - Vital Signs Vital signs: Vital Signs Temp 98.2 F 11/18/21 02:00 Pulse 66 11/18/21 02:00 Resp 22 11/18/21 02:00 BP 141/87 11/18/21 02:00 Pulse Ox 99 11/18/21 07:47 FiO2 Intake & Output 11/17/21 11/18/21 11/18/21 18:59 06:59 18:59 Intake Total 1080 Output Total 450 900 Balance 630 -900 Weight 85.5 kg Intake: Oral 1080 Output: Urine 450 900 Other: Voiding Method Diaper External Catheter # Voids 1 - Exam General examination - Alert and Oriented 3 in NAD, patient appears chronically debilitated Heart - + S1S2 no murmurs Lungs - bilateral lower lung crackles Abdomen soft NT ND +ve BS Extremities - diffuse generalized edema 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 Psych - appears lethargic and mildly confused - Labs CBC & Chem 7: 11/18/21 05:20 11/18/21 09:39 Labs: Abnormal Lab Results - Last 24 Hours (Table) 11/17/21 11/17/21 11/17/21 Range/Units 11:32 16:38 20:25 RBC (3.80-5.40) m/uL Hgb (11.4-16.0) gm/dL Hct (34.0-46.0) % MCHC (31.0-37.0) g/dL RDW (11.5-15.5) % APTT (22.0-30.0) sec D-Dimer (<0.60) mg/L FEU Carbon Dioxide (22-30) mmol/L Glucose (74-99) mg/dL POC Glucose (mg/dL) 142 H 157 H 151 H (70-110) mg/dL Magnesium (1.6-2.3) mg/dL Troponin I (0.000-0.034) ng/mL 11/18/21 11/18/21 11/18/21 Range/Units 05:20 05:20 05:20 RBC 3.67 L (3.80-5.40) m/uL Hgb 9.9 L (11.4-16.0) gm/dL Hct 33.1 L (34.0-46.0) % MCHC 29.9 L (31.0-37.0) g/dL RDW 19.2 H (11.5-15.5) % APTT (22.0-30.0) sec D-Dimer 3.44 H (<0.60) mg/L FEU Carbon Dioxide (22-30) mmol/L Glucose (74-99) mg/dL POC Glucose (mg/dL) (70-110) mg/dL Magnesium (1.6-2.3) mg/dL Troponin I 0.181 H* (0.000-0.034) ng/mL 11/18/21 11/18/21 11/18/21 Range/Units 05:20 09:39 09:39 RBC (3.80-5.40) m/uL Hgb (11.4-16.0) gm/dL Hct (34.0-46.0) % MCHC (31.0-37.0) g/dL RDW (11.5-15.5) % APTT 30.4 H (22.0-30.0) sec D-Dimer (<0.60) mg/L FEU Carbon Dioxide 38 H (22-30) mmol/L Glucose 103 H (74-99) mg/dL POC Glucose (mg/dL) (70-110) mg/dL Magnesium 1.2 L (1.6-2.3) mg/dL Troponin I 0.169 H* (0.000-0.034) ng/mL Assessment and Plan Assessment: Shortness of breath at night on 11/18/2021 Bilateral pleural effusion -IV Lasix 40 mg order one time stat. We'll start the patient on IV Lasix 40 mg twice a day -Patient had an echocardiogram done earlier in the admission that showed normal EF -D-dimer elevated so we'll check CTA chest to rule out PE Elevated troponin likely due to demand ischemia from the episode about -EKG however did show new T-wave inversions so need to rule out ACS -Repeat troponin -Consult cardiology -Patient started on heparin drip Acute kidney injury Resolved. Likely secondary to the travel/dehydration Patient of fluids D/c rios cath Renal cysts on US CT abdomen done, no cysts or masses. ESBL UTI Patient received 3 doses of Invanz. Unfortunately the patient developed a rash so had to be discontinued. Repeat UA shows resolution of the UTI. Per infectious disease no need for further antibiotics. Patient will need to midline removed prior to transfer to longterm facility Rash on back and chest -Concern for possible drug ALLERGY -Holding Invanz -Start prednisone -Improving Hx of sick sinus syndrome, history of atrial fibrillation Was sinus bo on the monitor now NSR This was reported on the patient's medical records from last admission, however it is unclear why patient is not on anticoagulation Cardiology consulted, echo done--Looks ok normal EF Ileus/vomiting Add reglan and zofran prn Encouraged to ambulate Diabetes type 2 Controlled Hold oral hypoglycemics Sliding-scale insulin Hypomagnesemia Replaced General weakness/adult failure to thrive PT and OT Chronic Iron deficiency anemia -> patient denies any overt signs of bleeding and hemoglobin stable. Patient instructed to call PCP for further workup Hypertension, Hypothyroidism All stable Resume meds DVT prophylaxis Heparin subcu Will likely need rehab. Anticipated discharge: Awaiting placement. Per vocational case manager this is challenging since patient's insurance [place] of [place]. If no facility willing to accept her insurance may need to set up patient to go home with home care needs. This will be discussed with vocational case manager on 11/21/2021
[2021-11-18] MEDS: predniSONE 20 MG TAB PO SCH (11:31)
[2021-11-18] MEDS: ASPIRIN 81 MG PO SCH (11:31)
[2021-11-18] MEDS: polyethylene glycoL 3350 17 GM POWD.PACK PO SCH (11:31)
[2021-11-18] MEDS: MAGNESIUM SULFATE-D5W PMX 1 GM in DEXTROSE/WATER 1 100ML.BAG IVPB SCH ×4 (11:31→16:46)
[2021-11-18 11:39] LABS: Glucose,Whole Blood 107 mg/dL (70-110)
--- NOTE | 2021-11-18 12:25 | P.PN ---
Subjective Progress Note Date: 11/18/21 This 61 pleasant 76-year-old female patient who was originally admitted on 11/08/2021. Has a history of hypertension, TIA, asthma and recent prolonged hospitalization for apparent congestive heart failure, diastolic and was at that time intubated with evidence of shock, was anemic. Recently moved to [place]. We were asked to see the patient in consultation for atrial fibrillation which was mentioned in notes from [place] however due to anemia patient was not anticoagulated. There is been no evidence of atrial fibrillation since admission here EKG and telemetry reveals multifocal atrial tachycardia. We had initially signed off on the patient on the by have been asked for shortness of breath and chest discomfort. Troponin from this morning was 0.181 patient also had evidence of mild troponin elevation on admission of 0.044, 0.040 and 0.053. In speaking with the patient appears she may have had a cardiac catheterization done several weeks ago while in [place] but she is unclear. She does say that she never wants to have a cardiac catheterization done again but cannot recall the exact details of the procedure. Echocardiogram from admission showed a low normal LV systolic function with an ejection fraction of 5055% with no significant valvular abnormalities. This morning the patient developed chest discomfort and shortness of breath and was transferred to telemetry. There is some question of worsening in her chest discomfort with deep inspiration. Upon examination she is chest pain-free and her breathing has improved. She did receive one dose of IV Lasix. She's been initiated on aspirin. She is also on heparin drip. Objective - Vital Signs Vital signs: Vital Signs Temp 98.2 F 11/18/21 02:00 Pulse 66 11/18/21 02:00 Resp 22 11/18/21 02:00 BP 141/87 11/18/21 02:00 Pulse Ox 99 11/18/21 07:47 FiO2 Intake & Output 11/17/21 11/18/21 11/18/21 18:59 06:59 18:59 Intake Total 1080 Output Total 450 900 900 Balance 630 -900 -900 Weight 85.5 kg Intake: Oral 1080 Output: Urine 450 900 900 Other: Voiding Method Diaper External Catheter # Voids 1 - Exam PHYSICAL EXAMINATION: HEENT: Head is atraumatic, normocephalic. Pupils equal, round. Neck is supple. There is no elevated jugular venous pressure. HEART EXAMINATION: Heart sounds regular, S1 and S2 normal. No murmur or gallop heard. CHEST EXAMINATION: Lungs are clear to auscultation and precussion. No chest wall tenderness is noted on palpation or with deep breathing. ABDOMEN: Soft, nontender. Bowel sounds are heard. No organomegaly noted. EXTREMITIES: 2+ peripheral pulses with no evidence of peripheral edema and no calf tenderness noted. NEUROLOGIC patient is awake, alert and oriented x3. Short-term memory loss noted . - Labs CBC & Chem 7: 11/18/21 05:20 11/18/21 09:39 Labs: Abnormal Lab Results - Last 24 Hours (Table) 11/17/21 11/17/21 11/18/21 Range/Units 16:38 20:25 05:20 RBC (3.80-5.40) m/uL Hgb (11.4-16.0) gm/dL Hct (34.0-46.0) % MCHC (31.0-37.0) g/dL RDW (11.5-15.5) % APTT (22.0-30.0) sec D-Dimer (<0.60) mg/L FEU Carbon Dioxide (22-30) mmol/L Glucose (74-99) mg/dL POC Glucose (mg/dL) 157 H 151 H (70-110) mg/dL Magnesium (1.6-2.3) mg/dL Troponin I 0.181 H* (0.000-0.034) ng/mL 11/18/21 11/18/21 11/18/21 Range/Units 05:20 05:20 05:20 RBC 3.67 L (3.80-5.40) m/uL Hgb 9.9 L (11.4-16.0) gm/dL Hct 33.1 L (34.0-46.0) % MCHC 29.9 L (31.0-37.0) g/dL RDW 19.2 H (11.5-15.5) % APTT 30.4 H (22.0-30.0) sec D-Dimer 3.44 H (<0.60) mg/L FEU Carbon Dioxide (22-30) mmol/L Glucose (74-99) mg/dL POC Glucose (mg/dL) (70-110) mg/dL Magnesium (1.6-2.3) mg/dL Troponin I (0.000-0.034) ng/mL 11/18/21 11/18/21 Range/Units 09:39 09:39 RBC (3.80-5.40) m/uL Hgb (11.4-16.0) gm/dL Hct (34.0-46.0) % MCHC (31.0-37.0) g/dL RDW (11.5-15.5) % APTT (22.0-30.0) sec D-Dimer (<0.60) mg/L FEU Carbon Dioxide 38 H (22-30) mmol/L Glucose 103 H (74-99) mg/dL POC Glucose (mg/dL) (70-110) mg/dL Magnesium 1.2 L (1.6-2.3) mg/dL Troponin I 0.169 H* (0.000-0.034) ng/mL Assessment and Plan Assessment: #1 chest pain and shortness of breath, chest pains possibly worsened with inspiration. Troponin 0.181 which was mildly elevated on admission. She's been initiated on IV heparin question of prior cardiac catheterization which the cayetano ent said she had no blockages at that time #2 generalized weakness #3 multifocal atrial tachycardia is question of prior atrial fibrillation while in [place] #4 diastolic heart failure #5 hypertension Plan: From cardiology's perspective we will add a beta stevo and nitrate. Obtain records of possible cardiac catheterization done in [place] a few weeks ago. Continued to trend troponins. We'll continue to monitor the patient and provide further recommendations accordingly. 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 Patient was seen and examined.
[2021-11-18] MEDS: METOPROLOL TARTRATE 25 MG TAB PO SCH ×2 (13:24→22:38)
[2021-11-18] MEDS: ISOSORBIDE MONONITRATE ER 30 MG TAB.ER.24H PO SCH (13:24)
[2021-11-18 16:45] LABS: Glucose,Whole Blood 180 mg/dL (70-110)
[2021-11-18 19:13] LABS: Glucose,Whole Blood 170 mg/dL (70-110)
[2021-11-18] MEDS: DOCUSATE 100 MG CAP PO SCH (19:39)
[2021-11-18] MEDS: SENNOSIDES 8.6 MG TAB PO SCH (19:39)
[2021-11-18] MEDS: FUROSEMIDE 10 MG/ML 4 ML VIAL IV SCH (19:42)
[2021-11-18] MEDS: MELATONIN 3 MG TABLET PO SCH (21:34)
[2021-11-19] MEDS: ACETAMINOPHEN TAB 325 MG TAB PO PRN (01:50)
[2021-11-19] MEDS: MELATONIN 3 MG TABLET PO SCH ×2 (01:50→19:58)
[2021-11-19] MEDS: HEPARIN SOD,PORK IN 0.45% NACL 25,000 UNIT in 0.45% NACL 1 250ML.BAG IV SCH (03:43)
[2021-11-19 05:52] LABS: Glucose,Whole Blood 119 mg/dL (70-110)
[2021-11-19] MEDS: LEVOTHYROXINE 50 MCG TAB PO SCH (06:26)
[2021-11-19 08:04] LABS: African American GFR (CKD) >90 (>60 ml/min/1.73 sqM); Anion Gap 3 mmol/L; Blood Urea Nitrogen 13 mg/dL (7-17); Calcium 8.1 mg/dL (8.4-10.2); Carbon Dioxide 33 mmol/L (22-30); Chloride 99 mmol/L (98-107); Glucose 111 mg/dL (74-99); Non-African American GFR(CKD) 87 (>60 ml/min/1.73 sqM); Potassium 4.5 mmol/L (3.5-5.1); Sodium 135 mmol/L (137-145)
[2021-11-19] MEDS: FUROSEMIDE 10 MG/ML 4 ML VIAL IV SCH (08:06)
[2021-11-19] MEDS: predniSONE 20 MG TAB PO SCH (08:06)
[2021-11-19] MEDS: ASPIRIN 81 MG PO SCH (08:07)
[2021-11-19] MEDS: ISOSORBIDE MONONITRATE ER 30 MG TAB.ER.24H PO SCH (08:07)
[2021-11-19] MEDS: METOPROLOL TARTRATE 25 MG TAB PO SCH ×2 (08:07→19:58)
[2021-11-19] MEDS: polyethylene glycoL 3350 17 GM POWD.PACK PO SCH (08:07)
[2021-11-19 08:18] LABS: Anisocytosis Slight; Basophils % (A) 0 %; Eosinophils % (A) 0 %; HCT 34.1 % (34.0-46.0); HGB 10.2 gm/dL (11.4-16.0); Hypochromasia Marked; Lymphocytes # (A) 1.2 k/uL (1.0-4.8); Lymphocytes % (A) 16 %; MCH 27.2 pg (25.0-35.0); MCHC 29.8 g/dL (31.0-37.0); MCV 91.2 fL (80.0-100.0); Mean Platelet Volume 7.6; Monocytes # (A) 0.5 k/uL (0-1.0); Monocytes % (A) 6 %; Neutrophils # (A) 5.7 k/uL (1.3-7.7); Neutrophils % (A) 74 %; Platelet Count 331 k/uL (150-450); RBC 3.74 m/uL (3.80-5.40); RDW 19.2 % (11.5-15.5); WBC 7.7 k/uL (3.8-10.6)
[2021-11-19 11:13] LABS: Glucose,Whole Blood 147 mg/dL (70-110)
--- NOTE | 2021-11-19 11:55 | P.PN ---
Subjective Progress Note Date: 11/19/21 Patient this morning states that she is feeling much better. She states that her chest pain is improving. She denies any shortness of breath. Patient states that she was to start walking again. Objective - Vital Signs Vital signs: Vital Signs Temp 97.6 F 11/19/21 03:40 Pulse 55 L 11/19/21 03:40 Resp 18 11/19/21 03:40 BP 112/78 11/19/21 03:40 Pulse Ox 98 11/19/21 03:40 FiO2 Intake & Output 11/18/21 11/19/21 11/19/21 18:59 06:59 18:59 Intake Total 610.039 102.629 291.3 Output Total 900 1350 Balance -289.961 -1247.371 291.3 Intake: IV 100 Lactated Ringers 1,000 ml 100 @ 50 mls/hr IV .Q20H [facility] Rx#:[id number] Intake, IV Titration 510.039 102.629 51.3 Amount Heparin Sod,Pork in 0.45% 110.039 102.629 51.3 NaCl 25,000 unit In 0.45 % NaCl 1 250ml.bag @ 18 UNITS/KG/HR 15.39 mls/hr IV .[id number] [facility] Rx#: [id number] Magnesium Sulfate-D5w Pmx 400 1 gm In Dextrose/Water 1 100ml.bag @ 100 mls/hr IVPB Q1H [facility] Rx#: [id number] Oral 240 Output: Urine 900 1350 Other: Voiding Method Diaper External Catheter # Voids 1 - Exam General examination - Alert and Oriented 3 in NAD, patient appears chronically debilitated Heart - + S1S2 no murmurs Lungs - bilateral lower lung crackles Abdomen soft NT ND +ve BS Extremities - diffuse generalized edema 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 Psych - appears lethargic and mildly confused - Labs CBC & Chem 7: 11/19/21 06:57 11/19/21 06:57 Labs: Abnormal Lab Results - Last 24 Hours (Table) 11/18/21 11/18/21 11/18/21 Range/Units 13:58 16:43 19:11 RBC (3.80-5.40) m/uL Hgb (11.4-16.0) gm/dL MCHC (31.0-37.0) g/dL RDW (11.5-15.5) % APTT >200.0 H* (22.0-30.0) sec Sodium (137-145) mmol/L Carbon Dioxide (22-30) mmol/L Glucose (74-99) mg/dL POC Glucose (mg/dL) 180 H 170 H (70-110) mg/dL Calcium (8.4-10.2) mg/dL 11/18/21 11/19/21 11/19/21 Range/Units 22:50 05:50 06:57 RBC 3.74 L (3.80-5.40) m/uL Hgb 10.2 L (11.4-16.0) gm/dL MCHC 29.8 L (31.0-37.0) g/dL RDW 19.2 H (11.5-15.5) % APTT >200.0 H* (22.0-30.0) sec Sodium (137-145) mmol/L Carbon Dioxide (22-30) mmol/L Glucose (74-99) mg/dL POC Glucose (mg/dL) 119 H (70-110) mg/dL Calcium (8.4-10.2) mg/dL 11/19/21 11/19/21 11/19/21 Range/Units 06:57 06:57 11:12 RBC (3.80-5.40) m/uL Hgb (11.4-16.0) gm/dL MCHC (31.0-37.0) g/dL RDW (11.5-15.5) % APTT 145.0 H* (22.0-30.0) sec Sodium 135 L (137-145) mmol/L Carbon Dioxide 33 H (22-30) mmol/L Glucose 111 H (74-99) mg/dL POC Glucose (mg/dL) 147 H (70-110) mg/dL Calcium 8.1 L (8.4-10.2) mg/dL Assessment and Plan Assessment: Shortness of breath at night on 11/18/2021 Bilateral pleural effusion -IV Lasix 40 mg order one time stat. We'll start the patient on IV Lasix 40 mg twice a day -Patient had an echocardiogram done earlier in the admission that showed normal EF -D-dimer elevated so we'll check CTA chest to rule out PE Elevated troponin likely due to demand ischemia from the episode about -EKG however did show new T-wave inversions so need to rule out ACS -Repeat troponin -Consult cardiology -Patient started on heparin drip -I reviewed patient's records from [facility] and she did not have any recent heart catheterization. I made cardiology aware. -Awaiting for further recommendations from cardiology Acute kidney injury Resolved. Likely secondary to the travel/dehydration Patient of fluids D/c rios cath Renal cysts on US CT abdomen done, no cysts or masses. ESBL UTI Patient received 3 doses of Invanz. Unfortunately the patient developed a rash so had to be discontinued. Repeat UA shows resolution of the UTI. Per infectio us disease no need for further antibiotics. Patient will need to midline removed prior to transfer to retirement facility Rash on back and chest -Concern for possible drug ALLERGY -Holding Invanz -Start prednisone -Improving Hx of sick sinus syndrome, history of atrial fibrillation Was sinus bo on the monitor now NSR I reviewed patient's records from hospital in [place] patient was recently admitted. Patient was not started on anticoagulation due to iron deficiency anemia Cardiology consulted, echo done--Looks ok normal EF Ileus/vomiting Add reglan and zofran prn Encouraged to ambulate Diabetes type 2 Controlled Hold oral hypoglycemics Sliding-scale insulin Hypomagnesemia Replaced General weakness/adult failure to thrive PT and OT Chronic Iron deficiency anemia -> patient denies any overt signs of bleeding and hemoglobin stable. Patient instructed to call PCP for further workup Hypertension, Hypothyroidism All stable Resume meds DVT prophylaxis Heparin subcu Will likely need rehab. Anticipated discharge: Awaiting placement. Per telephonic case manager this is challenging since patient's insurance is [place] of [place]. If no facility willing to accept her insurance may need to set up patient to go home with home care needs. This will be discussed with telephonic case manager on 11/21/2021. Also waiting on cardiology to clear patient for discharge
--- NOTE | 2021-11-19 14:25 | P.PN ---
Subjective Progress Note Date: 11/19/21 This 61 pleasant 76-year-old female patient who was originally admitted on 11/08/2021. Has a history of hypertension, TIA, asthma and recent prolonged hospitalization for apparent congestive heart failure, diastolic and was at that time intubated with evidence of shock, was anemic. Recently moved to [place]. We were asked to see the patient in consultation for atrial fibrillation which was mentioned in notes from [place] however due to anemia patient was not anticoagulated. There is been no evidence of atrial fibrillation since admission here EKG and telemetry reveals multifocal atrial tachycardia. We had initially signed off on the patient on the by have been asked for shortness of breath and chest discomfort. Troponin from this morning was 0.181 patient also had evidence of mild troponin elevation on admission of 0.044, 0.040 and 0.053. In speaking with the patient appears she may have had a cardiac catheterization done several weeks ago while in [place] but she is unclear. She does say that she never wants to have a cardiac catheterization done again but cannot recall the exact details of the procedure. Echocardiogram from admission showed a low normal LV systolic function with an ejection fraction of 5055% with no significant valvular abnormalities. This morning the patient developed chest discomfort and shortness of breath and was transferred to telemetry. There is some question of worsening in her chest discomfort with deep inspiration. Upon examination she is chest pain-free and her breathing has improved. She did receive one dose of IV Lasix. She's been initiated on aspirin. She is also on heparin drip. 11/19/2021 Patient was seen and examined today resting comfortably in bed. Overall she says she's feeling better. Her breathing is better. She continues to have upper chest discomfort that is worse with deep inspiration. Also worse with rolling over. Vital signs of been stable. She has been maintained on a heparin drip. Is currently on Lasix 40 mg by mouth daily. Renal function is stable. We have not received any further records from [facility]. Objective - Vital Signs Vital signs: Vital Signs Temp 98.0 F 11/19/21 12:00 Pulse 88 11/19/21 12:00 Resp 14 11/19/21 12:00 BP 105/59 11/19/21 12:00 Pulse Ox 92 L 11/19/21 12:00 FiO2 Intake & Output 11/18/21 11/19/2122 18:59 06:59 18:59 Intake Total 610.039 102.629 291.3 Output Total 900 1350 Balance -289.961 -1247.371 291.3 Intake: IV 100 Lactated Ringers 1,000 ml 100 @ 50 mls/hr IV .Q20H [facility] Rx#:[id number] Intake, IV Titration 510.039 102.629 51.3 Amount Heparin Sod,Pork in 0.45% 110.039 102.629 51.3 NaCl 25,000 unit In 0.45 % NaCl 1 250ml.bag @ 18 UNITS/KG/HR 15.39 mls/hr IV .[id number] [facility] Rx#: [id number] Magnesium Sulfate-D5w Pmx 400 1 gm In Dextrose/Water 1 100ml.bag @ 100 mls/hr IVPB Q1H [facility] Rx#: [id number] Oral 240 Output: Urine 900 1350 Other: Voiding Method Diaper Diaper External Catheter External Catheter # Voids 1 - Exam PHYSICAL EXAMINATION: HEENT: Head is atraumatic, normocephalic. Pupils equal, round. Neck is supple. There is no elevated jugular venous pressure. HEART EXAMINATION: Heart sounds regular, S1 and S2 normal. No murmur or gallop heard. CHEST EXAMINATION: Lungs are clear to auscultation and precussion. No chest wall tenderness is noted on palpation or with deep breathing. ABDOMEN: Soft, nontender. Bowel sounds are heard. No organomegaly noted. EXTREMITIES: 2+ peripheral pulses with no evidence of peripheral edema and no calf tenderness noted. NEUROLOGIC patient is awake, alert and oriented x3. . - Labs CBC & Chem 7: 11/19/21 06:57 11/19/21 06:57 Labs: Abnormal Lab Results - Last 24 Hours (Table) 11/18/21 11/18/21 11/18/21 Range/Units 13:58 16:43 19:11 RBC (3.80-5.40) m/uL Hgb (11.4-16.0) gm/dL MCHC (31.0-37.0) g/dL RDW (11.5-15.5) % APTT >200.0 H* (22.0-30.0) sec Sodium (137-145) mmol/L Carbon Dioxide (22-30) mmol/L Glucose (74-99) mg/dL POC Glucose (mg/dL) 180 H 170 H (70-110) mg/dL Calcium (8.4-10.2) mg/dL 11/18/21 11/19/21 11/19/21 Range/Units 22:50 05:50 06:57 RBC 3.74 L (3.80-5.40) m/uL Hgb 10.2 L (11.4-16.0) gm/dL MCHC 29.8 L (31.0-37.0) g/dL RDW 19.2 H (11.5-15.5) % APTT >200.0 H* (22.0-30.0) sec Sodium (137-145) mmol/L Carbon Dioxide (22-30) mmol/L Glucose (74-99) mg/dL POC Glucose (mg/dL) 119 H (70-110) mg/dL Calcium (8.4-10.2) mg/dL 11/19/21 11/19/21 11/19/21 Range/Units 06:57 06:57 11:12 RBC (3.80-5.40) m/uL Hgb (11.4-16.0) gm/dL MCHC (31.0-37.0) g/dL RDW (11.5-15.5) % APTT 145.0 H* (22.0-30.0) sec Sodium 135 L (137-145) mmol/L Carbon Dioxide 33 H (22-30) mmol/L Glucose 111 H (74-99) mg/dL POC Glucose (mg/dL) 147 H (70-110) mg/dL Calcium 8.1 L (8.4-10.2) mg/dL Assessment and Plan Assessment: #1 chest pain and shortness of breath, chest pains possibly worsened with inspiration. Troponin 0.181 which was mildly elevated on admission. She's been initiated on IV heparin. Question of prior cardiac catheterization which the patient said she had no blockages at that time #2 generalized weakness #3 multifocal atrial tachycardia is question of prior atrial fibrillation while in [place] #4 diastolic heart failure #5 hypertension Plan: From cardiology's perspective medications were reviewed and we will continue the same. Obtain records of possible cardiac catheterization done in [place] a few weeks ago. Discontinue IV heparin. We'll continue to follow the patient and provide further recommendations accordingly. BIRDCAGE ASSEMBLER note has been reviewed, I agree with a documented findings and plan of care. Patient was seen and examined.
[2021-11-19 16:31] LABS: Glucose,Whole Blood 212 mg/dL (70-110)
[2021-11-19] MEDS: SENNOSIDES 8.6 MG TAB PO SCH (19:58)
[2021-11-19] MEDS: DOCUSATE 100 MG CAP PO SCH (19:58)
[2021-11-19 20:12] LABS: Glucose,Whole Blood 199 mg/dL (70-110)
--- NOTE | 2021-11-20 01:21 | P.PN ---
Subjective Progress Note Date: 11/18/21 Principal diagnosis: ESBL Klebsiella urinary tract infection Patient is a 76 year female with multiple comorbidities presenting to the hospital where he is unable to take care of herself did have a evidence of ESBL Klebsiella urinary tract infection. The patient was complaining of chest pain and was transferred to the cardiac unit as did have elevated troponin On today's evaluation that is 11/18/2021 , the patient remains to be afebrile, patient is breathing comfortably on room air, the patient denies shortness of breath or cough no abdominal pain or diarrhea, patient rash has decreased intensity, Objective - Vital Signs Vital signs: Vital Signs Temp 98.2 F 11/18/21 12:00 Pulse 77 11/18/21 12:00 Resp 16 11/18/21 12:00 BP 114/63 11/18/21 12:00 Pulse Ox 99 11/18/21 12:00 FiO2 Intake & Output 11/17/21 11/18/21 11/18/21 18:59 06:59 18:59 Intake Total 1080 110.039 Output Total 450 900 900 Balance 630 900 -789.961 Weight 85.5 kg Intake: Intake, IV Titration 110.039 Amount Heparin Sod,Pork in 0.45% 110.039 NaCl 25,000 unit In 0.45 % NaCl 1 250ml.bag @ 18 UNITS/KG/HR 15.39 mls/hr IV .[id number] [facility] Rx#: [id number] Oral 1080 Output: Urine 450 900 900 Other: Voiding Method Diaper External Catheter # Voids 1 - Exam GENERAL DESCRIPTION: An elderly female lying in bed in no distress RESPIRATORY SYSTEM: Unlabored breathing , decreased breath sounds at bases HEART: S1 S2 regular rate and rhythm , ABDOMEN: Soft , no tenderness EXTREMITIES: No edema feet - Labs CBC & Chem 7: 11/19/21 06:57 11/19/21 06:57 Labs: Abnormal Lab Results - Last 24 Hours (Table) 11/17/21 11/17/21 11/18/21 Range/Units 16:38 20:25 05:20 RBC (3.80-5.40) m/uL Hgb (11.4-16.0) gm/dL Hct (34.0-46.0) % MCHC (31.0-37.0) g/dL RDW (11.5-15.5) % APTT (22.0-30.0) sec D-Dimer (<0.60) mg/L FEU Carbon Dioxide (22-30) mmol/L Glucose (74-99) mg/dL POC Glucose (mg/dL) 157 H 151 H (70-110) mg/dL Magnesium (1.6-2.3) mg/dL Troponin I 0.181 H* (0.000-0.034) ng/mL 11/18/21 11/18/21 11/18/21 Range/Units 05:20 05:20 05:20 RBC 3.67 L (3.80-5.40) m/uL Hgb 9.9 L (11.4-16.0) gm/dL Hct 33.1 L (34.0-46.0) % MCHC 29.9 L (31.0-37.0) g/dL RDW 19.2 H (11.5-15.5) % APTT 30.4 H (22.0-30.0) sec D-Dimer 3.44 H (<0.60) mg/L FEU Carbon Dioxide (22-30) mmol/L Glucose (74-99) mg/dL POC Glucose (mg/dL) (70-110) mg/dL Magnesium (1.6-2.3) mg/dL Troponin I (0.000-0.034) ng/mL 11/18/21 11/18/21 11/18/21 Range/Units 09:39 09:39 13:58 RBC (3.80-5.40) m/uL Hgb (11.4-16.0) gm/dL Hct (34.0-46.0) % MCHC (31.0-37.0) g/dL RDW (11.5-15.5) % APTT >200.0 H* (22.0-30.0) sec D-Dimer (<0.60) mg/L FEU Carbon Dioxide 38 H (22-30) mmol/L Glucose 103 H (74-99) mg/dL POC Glucose (mg/dL) (70-110) mg/dL Magnesium 1.2 L (1.6-2.3) mg/dL Troponin I 0.169 H* (0.000-0.034) ng/mL Assessment and Plan (1) UTI (urinary tract infection) Current Visit: Yes Status: Acute Code(s): N39.0 - URINARY TRACT INFECTION, SITE NOT SPECIFIED SNOMED Code(s): 67236645 Plan: 1patient with a positive urine culture with ESBL Klebsiella possible mild cystitis in this patient did have a Perez catheter placed during this admission as well as her admission in [place] possible risk factor for the UTI clinically not behaving as a pyelonephritis or deep infection. 2 repeat urine not significantly positive however cultures were not done per [facility] policy 3patient has received 3 days of Invanz which should be enough for a cystitis, and the patient will be monitored closely off antibiotic therapy Time with Patient: Less than 30
--- NOTE | 2021-11-20 01:22 | P.PN ---
Subjective Progress Note Date: 11/19/21 Principal diagnosis: ESBL Klebsiella urinary tract infection Patient is a 76 year female with multiple comorbidities presenting to the hospital where he is unable to take care of herself did have a evidence of ESBL Klebsiella urinary tract infection. The patient was complaining of chest pain and was transferred to the cardiac unit as did have elevated troponin On today's evaluation that is 11/19/2021 , the patient denies any fever or any chills, patient is breathing comfortably and the patient denies chest pain, occasional cough no abdominal pain or diarrhea, patient denies any urinary symptoms Objective - Vital Signs Vital signs: Vital Signs Temp 98 F 11/19/21 19:54 Pulse 70 11/19/21 20:00 Resp 18 11/19/21 20:00 BP 120/66 11/19/21 19:54 Pulse Ox 96 11/19/21 19:54 FiO2 Intake & Output 11/19/21 11/19/21 11/20/21 06:59 18:59 06:59 Intake Total 102.629 591.3 Output Total 1350 400 Balance -1247.371 191.3 Intake: Intake, IV Titration 102.629 51.3 Amount Heparin Sod,Pork in 0.45% 102.629 51.3 NaCl 25,000 unit In 0.45 % NaCl 1 250ml.bag @ 18 UNITS/KG/HR 15.39 mls/hr IV .[id number] [facility] Rx#: [id number] Oral 540 Output: Urine 1350 400 Other: Voiding Method Diaper Diaper Diaper External Catheter External Catheter External Catheter # Voids 1 - Exam GENERAL DESCRIPTION: An elderly female lying in bed in no distress RESPIRATORY SYSTEM: Unlabored breathing , decreased breath sounds at bases HEART: S1 S2 regular rate and rhythm , ABDOMEN: Soft , no tenderness EXTREMITIES: No edema feet - Labs CBC & Chem 7: 11/19/21 06:57 11/19/21 06:57 Labs: Abnormal Lab Results - Last 24 Hours (Table) 11/18/21 11/19/21 11/19/21 Range/Units 22:50 05:50 06:57 RBC 3.74 L (3.80-5.40) m/uL Hgb 10.2 L (11.4-16.0) gm/dL MCHC 29.8 L (31.0-37.0) g/dL RDW 19.2 H (11.5-15.5) % APTT >200.0 H* (22.0-30.0) sec Sodium (137-145) mmol/L Carbon Dioxide (22-30) mmol/L Glucose (74-99) mg/dL POC Glucose (mg/dL) 119 H (70-110) mg/dL Calcium (8.4-10.2) mg/dL 11/19/21 11/19/21 11/19/21 Range/Units 06:57 06:57 11:12 RBC (3.80-5.40) m/uL Hgb (11.4-16.0) gm/dL MCHC (31.0-37.0) g/dL RDW (11.5-15.5) % APTT 145.0 H* (22.0-30.0) sec Sodium 135 L (137-145) mmol/L Carbon Dioxide 33 H (22-30) mmol/L Glucose 111 H (74-99) mg/dL POC Glucose (mg/dL) 147 H (70-110) mg/dL Calcium 8.1 L (8.4-10.2) mg/dL 11/19/21 11/19/21 Range/Units 16:29 20:09 RBC (3.80-5.40) m/uL Hgb (11.4-16.0) gm/dL MCHC (31.0-37.0) g/dL RDW (11.5-15.5) % APTT (22.0-30.0) sec Sodium (137-145) mmol/L Carbon Dioxide (22-30) mmol/L Glucose (74-99) mg/dL POC Glucose (mg/dL) 212 H 199 H (70-110) mg/dL Calcium (8.4-10.2) mg/dL Assessment and Plan (1) UTI (urinary tract infection) Current Visit: Yes Status: Acute Code(s): N39.0 - URINARY TRACT INFECTION, SITE NOT SPECIFIED SNOMED Code(s): 27707398 Plan: 1patient with a positive urine culture with ESBL Klebsiella possible mild cystitis in this patient did have a Perez catheter placed during this admission as well as her admission in [place] possible risk factor for the UTI clinically not behaving as a pyelonephritis or deep infection. 2 repeat urine not significantly positive however cultures were not done per [facility] policy 3patient has received 3 days of Invanz which should be enough for a cystitis, and the patient is currently doing well off antibiotic therapy, normal white count and no urinary symptoms Time with Patient: Less than 30
[2021-11-20 05:56] LABS: Glucose,Whole Blood 114 mg/dL (70-110)
[2021-11-20 06:05] LABS: Anisocytosis Slight; Basophils % (A) 0 %; Eosinophils % (A) 0 %; HCT 29.4 % (34.0-46.0); HGB 9.2 gm/dL (11.4-16.0); Hypochromasia Marked; Lymphocytes # (A) 0.9 k/uL (1.0-4.8); Lymphocytes % (A) 15 %; MCHC 31.2 g/dL (31.0-37.0); MCV 89.6 fL (80.0-100.0); Mean Platelet Volume 7.6; Monocytes # (A) 0.5 k/uL (0-1.0); Monocytes % (A) 8 %; Neutrophils # (A) 4.5 k/uL (1.3-7.7); Neutrophils % (A) 74 %; Platelet Count 290 k/uL (150-450); RBC 3.29 m/uL (3.80-5.40); WBC 6.1 k/uL (3.8-10.6)
[2021-11-20] MEDS: LEVOTHYROXINE 50 MCG TAB PO SCH (06:12)
[2021-11-20 06:26] LABS: African American GFR (CKD) >90 (>60 ml/min/1.73 sqM); Anion Gap 0 mmol/L; Blood Urea Nitrogen 17 mg/dL (7-17); Calcium 7.9 mg/dL (8.4-10.2); Carbon Dioxide 40 mmol/L (22-30); Chloride 96 mmol/L (98-107); Glucose 105 mg/dL (74-99); Magnesium 1.9 mg/dL (1.6-2.3); Non-African American GFR(CKD) 86 (>60 ml/min/1.73 sqM); Potassium 4.1 mmol/L (3.5-5.1); Sodium 136 mmol/L (137-145)
[2021-11-20] MEDS ORDERED: FUROSEMIDE 40 MG TAB PO SCH (09:00)
[2021-11-20] MEDS: ASPIRIN 81 MG PO SCH (09:02)
[2021-11-20] MEDS: METOPROLOL TARTRATE 25 MG TAB PO SCH ×2 (09:02→20:44)
[2021-11-20] MEDS: polyethylene glycoL 3350 17 GM POWD.PACK PO SCH (09:03)
[2021-11-20] MEDS: ISOSORBIDE MONONITRATE ER 30 MG TAB.ER.24H PO SCH (09:03)
[2021-11-20] MEDS: predniSONE 20 MG TAB PO SCH (09:03)
--- NOTE | 2021-11-20 10:14 | P.PN ---
Subjective Progress Note Date: 11/20/21 This pleasant 76-year-old female patient who was originally admitted on 11/08/2021. Has a history of hypertension, TIA, asthma and recent prolonged hospitalization for apparent congestive heart failure, diastolic and was at that time intubated with evidence of shock, was anemic. Recently moved to [place]. We were asked to see the patient in consultation for atrial fibrillation which was mentioned in notes from [place] however due to anemia patient was not anticoagulated. There is been no evidence of atrial fibrillation since admission here EKG and telemetry reveals multifocal atrial tachycardia. We had initially signed off on the patient on the by have been asked for shortness of breath and chest discomfort. Troponin from this morning was 0.181 patient also had evidence of mild troponin elevation on admission of 0.044, 0.040 and 0.053. In speaking with the patient appears she may have had a cardiac catheterization done several weeks ago while in [place] but she is unclear. She does say that she never wants to have a cardiac catheterization done again but cannot recall the exact details of the procedure. Echocardiogram from admission showed a low normal LV systolic function with an ejection fraction of 5055% with no significant valvular abnormalities. This morning the patient developed chest discomfort and shortness of breath and was transferred to telemetry. There is some question of worsening in her chest discomfort with deep inspiration. Upon examination she is chest pain-free and her breathing has improved. She did receive one dose of IV Lasix. She's been initiated on aspirin. She is also on heparin drip. 11/19/2021 Patient was seen and examined today resting comfortably in bed. Overall she says she's feeling better. Her breathing is better. She continues to have upper chest discomfort that is worse with deep inspiration. Also worse with rolling over. Vital signs of been stable. She has been maintained on a heparin drip. Is currently on Lasix 40 mg by mouth daily. Renal function is stable. We have not received any further records from [facility]. 11/20/2021 The patient was seen and examined resting comfortably in bed. She is breathing better and chest discomfort is improving. She was coughing a lot last night and did not sleep well. She complains of chest discomfort mostly with coughing at this point. Vital signs are stable. Objective - Vital Signs Vital signs: Vital Signs Temp 98.2 F 11/20/21 08:54 Pulse 59 L 11/20/21 08:54 Resp 16 11/20/21 08:54 BP 122/67 11/20/21 08:54 Pulse Ox 98 11/20/21 08:54 FiO2 Intake & Output 11/19/21 11/20/21 11/20/21 18:59 06:59 18:59 Intake Total 591.3 Output Total 400 350 Balance 191.3 -350 Intake: Intake, IV Titration 51.3 Amount Heparin Sod,Pork in 0.45% 51.3 NaCl 25,000 unit In 0.45 % NaCl 1 250ml.bag @ 18 UNITS/KG/HR 15.39 mls/hr IV .[id number] [facility] Rx#: [id number] Oral 540 Output: Urine 400 350 Other: Voiding Method Diaper Diaper External Catheter External Catheter # Voids 1 - Exam PHYSICAL EXAMINATION: HEENT: Head is atraumatic, normocephalic. Pupils equal, round. Neck is supple. There is no elevated jugular venous pressure. HEART EXAMINATION: Heart sounds regular, S1 and S2 normal. No murmur or gallop heard. CHEST EXAMINATION: Lungs are clear to auscultation and precussion. No chest wall tenderness is noted on palpation or with deep breathing. ABDOMEN: Soft, nontender. Bowel sounds are heard. No organomegaly noted. EXTREMITIES: 2+ peripheral pulses with no evidence of peripheral edema and no calf tenderness noted. NEUROLOGIC patient is awake, alert and oriented x3. . - Labs CBC & Chem 7: 11/20/21 04:30 11/20/21 04:30 Labs: Abnormal Lab Results - Last 24 Hours (Table) 11/19/21 11/19/21 11/19/21 Range/Units 11:12 16:29 20:09 RBC (3.80-5.40) m/uL Hgb (11.4-16.0) gm/dL Hct (34.0-46.0) % RDW (11.5-15.5) % Lymphocytes # (1.0-4.8) k/uL Sodium (137-145) mmol/L Chloride (98-107) mmol/L Carbon Dioxide (22-30) mmol/L Glucose (74-99) mg/dL POC Glucose (mg/dL) 147 H 212 H 199 H (70-110) mg/dL Calcium (8.4-10.2) mg/dL 11/20/21 11/20/21 11/20/21 Range/Units 04:30 04:30 05:55 RBC 3.29 L (3.80-5.40) m/uL Hgb 9.2 L (11.4-16.0) gm/dL Hct 29.4 L (34.0-46.0) % RDW 19.0 H (11.5-15.5) % Lymphocytes # 0.9 L (1.0-4.8) k/uL Sodium 136 L (137-145) mmol/L Chloride 96 L (98-107) mmol/L Carbon Dioxide 40 H (22-30) mmol/L Glucose 105 H (74-99) mg/dL POC Glucose (mg/dL) 114 H (70-110) mg/dL Calcium 7.9 L (8.4-10.2) mg/dL Assessment and Plan Assessment: #1 chest pain and shortness of breath, chest pains possibly worsened with insp iration. Troponin 0.181 which was mildly elevated on admission. She's been initiated on IV heparin. Question of prior cardiac catheterization which the patient said she had no blockages at that time #2 generalized weakness #3 multifocal atrial tachycardia is question of prior atrial fibrillation while in [place] #4 diastolic heart failure #5 hypertension Plan: From cardiology's perspective medications were reviewed and we will continue the same. Obtain records of possible cardiac catheterization done in [place] a few weeks ago. We'll continue to follow the patient and provide further recommendations accordingly. ESCORT CAR DRIVER note has been reviewed, I agree with a documented findings and plan of care. Patient was seen and examined.
[2021-11-20 11:39] LABS: Glucose,Whole Blood 143 mg/dL (70-110)
--- NOTE | 2021-11-20 12:02 | P.PN ---
Subjective Progress Note Date: 11/20/21 Patient states that last night and she was short of breath and was coughing. She states that this morning she is feeling better. I told patient is likely because we had decreased the dose of Lasix. I told patient that I would increase her Lasix dose. I also had the patient lay down flat in her bed and she said she felt short of breath. However patient appeared comfortable. Patient also refusing a CTA chest because she does not want to lay down flat. Objective - Vital Signs Vital signs: Vital Signs Temp 98.2 F 11/20/21 08:54 Pulse 59 L 11/20/21 08:54 Resp 16 11/20/21 08:54 BP 122/67 11/20/21 08:54 Pulse Ox 98 11/20/21 08:54 FiO2 Intake & Output 11/19/21 11/20/21 11/20/21 18:59 06:59 18:59 Intake Total 591.3 Output Total 400 350 Balance 191.3 -350 Intake: Intake, IV Titration 51.3 Amount Heparin Sod,Pork in 0.45% 51.3 NaCl 25,000 unit In 0.45 % NaCl 1 250ml.bag @ 18 UNITS/KG/HR 15.39 mls/hr IV .[id number] [facility] Rx#: [id number] Oral 540 Output: Urine 400 350 Other: Voiding Method Diaper Diaper Diaper External Catheter External Catheter External Catheter # Voids 1 - Exam General examination - Alert and Oriented 3 in NAD, patient appears chronically debilitated Heart - + S1S2 no murmurs Lungs - diminished breath sounds bilaterally Abdomen soft NT ND +ve BS Extremities - +1 pitting edema bilateral lower extremities 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 - Moving all 4 extremities spontaneously Psych - calm and appropriate - Labs CBC & Chem 7: 11/20/21 04:30 11/20/21 04:30 Labs: Abnormal Lab Results - Last 24 Hours (Table) 11/19/21 11/19/21 11/20/21 Range/Units 16:29 20:09 04:30 RBC 3.29 L (3.80-5.40) m/uL Hgb 9.2 L (11.4-16.0) gm/dL Hct 29.4 L (34.0-46.0) % RDW 19.0 H (11.5-15.5) % Lymphocytes # 0.9 L (1.0-4.8) k/uL Sodium (137-145) mmol/L Chloride (98-107) mmol/L Carbon Dioxide (22-30) mmol/L Glucose (74-99) mg/dL POC Glucose (mg/dL) 212 H 199 H (70-110) mg/dL Calcium (8.4-10.2) mg/dL 11/20/21 11/20/21 11/20/21 Range/Units 04:30 05:55 11:37 RBC (3.80-5.40) m/uL Hgb (11.4-16.0) gm/dL Hct (34.0-46.0) % RDW (11.5-15.5) % Lymphocytes # (1.0-4.8) k/uL Sodium 136 L (137-145) mmol/L Chloride 96 L (98-107) mmol/L Carbon Dioxide 40 H (22-30) mmol/L Glucose 105 H (74-99) mg/dL POC Glucose (mg/dL) 114 H 143 H (70-110) mg/dL Calcium 7.9 L (8.4-10.2) mg/dL Assessment and Plan Assessment: Acute on chronic diastolic heart failure -Echocardiogram showed normal EF -We'll increase oral Lasix to 40 mg twice a day -Patient currently on 4 L nasal cannula -> wean O2 as tolerated Elevated troponin likely due to demand ischemia from the episode about -EKG however did show new T-wave inversions -Troponins were flat and likely due to heart failure -Status post heparin drip -I reviewed patient's records from [facility] and she did not have any recent heart catheterization. I did [facility] cardiology however they did no t read my message. -Awaiting for further recommendations from cardiology Elevated d-dimer -Likely due to acute phase reactant from UTI -Patient has a low well's score of 1.5 so unlikely PE -Patient also refusing CTA chest pains that she does not want to lay down flat Acute kidney injury Resolved. Renal cysts on US CT abdomen done, no cysts or masses. ESBL UTI Patient received 3 doses of Invanz. Unfortunately the patient developed a rash so had to be discontinued. Repeat UA did not reflux to urine culture. Per infectious disease no need for further antibiotics. Patient will need to midline/PICC line removed prior to discharge Rash on back and chest -Concern for possible drug ALLERGY -Holding Invanz -Start prednisone -Improving Hx of sick sinus syndrome, history of atrial fibrillation Normal sinus rhythm I reviewed patient's records from hospital in [place] patient was recently admitted. Patient was not started on anticoagulation due to iron deficiency anemia Cardiology consulted, echo done--Looks ok normal EF Ileus/vomiting Add reglan and zofran prn Encouraged to ambulate Resolved Diabetes type 2 Controlled Hold oral hypoglycemics Sliding-scale insulin Hypomagnesemia Replaced General weakness/adult failure to thrive PT and OT -> recommend detention facility Chronic Iron deficiency anemia -> patient denies any overt signs of bleeding and hemoglobin stable. Patient instructed to follow-up with PCP for further workup Hypertension, Hypothyroidism All stable Resume meds DVT prophylaxis Heparin subcu The patient needs detention facility Anticipated discharge: Awaiting placement. Per rn field case manager finding placement is challenging since patient's insurance [place] of [place]. If no facility willing to accept her insurance may need to set up patient to go home with home care needs. This will be discussed with rn field case manager on 11/21/2021. Also waiting on cardiology to clear patient for discharge. We'll need home O2 eval prior to discharge
[2021-11-20] MEDS: ALBUTEROL NEBULIZED 1.25 MG/3 ML INHALATION PRN ×3 (13:15→22:55)
[2021-11-20] MEDS ORDERED: FUROSEMIDE 10 MG/ML 2 ML VIAL IV ONE (13:30)
[2021-11-20 16:15] LABS: Glucose,Whole Blood 293 mg/dL (70-110)
[2021-11-20] MEDS: FUROSEMIDE 40 MG TAB PO SCH (16:49)
[2021-11-20 20:30] LABS: Glucose,Whole Blood 204 mg/dL (70-110)
[2021-11-20] MEDS: MELATONIN 3 MG TABLET PO SCH (20:44)
[2021-11-20] MEDS: DOCUSATE 100 MG CAP PO SCH (20:44)
[2021-11-20] MEDS: SENNOSIDES 8.6 MG TAB PO SCH (20:44)
[2021-11-20] MEDS: BENZOCAINE/MENTHOL LOZENG 1 EACH LOZENGE MUCOUS MEM PRN (20:44)
[2021-11-20] MEDS: guaiFENesin SYRUP 100MG/5ML 200 MG/10 ML CUP PO PRN (20:45)
[2021-11-21] MEDS: ALBUTEROL NEBULIZED 1.25 MG/3 ML INHALATION PRN ×3 (02:52→10:49)
[2021-11-21] MEDS: BENZOCAINE/MENTHOL LOZENG 1 EACH LOZENGE MUCOUS MEM PRN ×2 (03:15→09:19)
[2021-11-21] MEDS: guaiFENesin SYRUP 100MG/5ML 200 MG/10 ML CUP PO PRN ×2 (03:15→09:19)
[2021-11-21] MEDS: LEVOTHYROXINE 50 MCG TAB PO SCH (05:55)
[2021-11-21 06:21] LABS: Glucose,Whole Blood 112 mg/dL (70-110)
[2021-11-21 07:36] LABS: Anisocytosis Slight; HCT 29.6 % (34.0-46.0); HGB 9.2 gm/dL (11.4-16.0); Hypochromasia Marked; MCH 27.9 pg (25.0-35.0); MCHC 31.1 g/dL (31.0-37.0); MCV 89.5 fL (80.0-100.0); Mean Platelet Volume 7.1; Platelet Count 245 k/uL (150-450); RBC 3.31 m/uL (3.80-5.40); RDW 18.7 % (11.5-15.5); WBC 7.3 k/uL (3.8-10.6)
[2021-11-21 08:12] LABS: Calcium 7.9 mg/dL (8.4-10.2); Potassium 3.7 mmol/L (3.5-5.1)
--- NOTE | 2021-11-21 08:52 | CDI ---
Documentation Clarification Form Date: 11/21/2021 08:33:55 AM From: Rosa Fraser CCS, CCDS Admit Date: 11/08/2021 12:30:00 PM Patient Name: Crissy Goldsmith Visit Number: [id number] Discharge Date: ATTENTION: The Clinical Documentation Specialists (CDI) and [facility] Coding Staff appreciate your assistance in clarifying documentation. Please respond to the clarification below the line at the bottom and electronically sign. The CDI & [facility] Coding staff will review the response and follow-up if needed. Please note: Queries are made part of the Legal Health Record. If you have any questions, please contact the author of this message via ITS. Dr. Trevor Rubio: The following is documented in the Attending Physician Progress Notes on 11/18 through 11/20: Elevated troponin likely due to demand ischemia from the episode (A team called for chest pain). EKG however shows new T-wave inversions so need to rule out ACS, repeat Troponin. Consult Cardiology, started on Heparin drip. Additional clarification regarding the etiology of the elevated troponins is requested. Patient History/Risk Factors per the 11/08 H/P: Paroxysmal Atrial Fibrillation, CHF, SSS, M, Hypothyroidism, Hypertension, PE, Asthma. Clinical Indicators: Presented to the ED on 11/08 with family with pain & weakness all over. Previously hospitalized in [place] for a month requiring ventilator for exacerbation of heart failure and shock. Admit with TESS, Chest pain, Hypomagnesemia. 11/08 VS: T 97.5, P 90, R 18-20, BP 91/68, PO 96 2Lnc 11/08 LAB: Troponin 0.044, 0.040, 0.053 11/08 CXR: concern for Bronchitis. 11/08 EKG: R 100 Atrial Fibrillation with controlled rate. QRS 121, QTC 425. LBBB, no acute ST segment elevations. On 11/18, the A Team was called for patient having Chest Pain, nonradiating with no alleviating factors. VS: P 93, BP 138/62, PO 98 on 4Lnc. LAB: APTT 30.4, D dimer 3.44; CO2 38, glucose 103, Magnesium 1.2 Troponins: 0.0.181, 0.169 Treatment 11/08: IV Mag Sulf 100 mls @ 100 mls/hr x3 11/09: Heparin sq 5,000 units q8H, IV Na Chl 1,000 mls @ 999 mls/hr q1H, 11/18: IV Heparin drip, IV Lasix 40 mg x1, IV MagSulf 100 mls @ 100 mls/hr q1H, po Aspirin 81 mg daily. Please clarify the etiology of the elevated troponins, if known: [ ] Type 2 MA due to CHF [xxx ] Type 2 MA due to Arrhythmia (please specify ) [ ] Type 2 MA due to other (please specify ) [ ] Other, please specify: [ ] Unable to determine (Template Last Revised: July 2020) MTDD
[2021-11-21] MEDS: METOPROLOL TARTRATE 25 MG TAB PO SCH ×2 (09:13→22:27)
[2021-11-21] MEDS: ISOSORBIDE MONONITRATE ER 30 MG TAB.ER.24H PO SCH (09:14)
[2021-11-21] MEDS: ASPIRIN 81 MG PO SCH (09:14)
[2021-11-21] MEDS: FUROSEMIDE 40 MG TAB PO SCH ×2 (09:14→17:05)
[2021-11-21] MEDS: polyethylene glycoL 3350 17 GM POWD.PACK PO SCH (09:14)
[2021-11-21 11:38] LABS: Glucose,Whole Blood 107 mg/dL (70-110)
[2021-11-21] MEDS ORDERED: ALPRAZolam 0.5 MG TAB PO PRN (12:25)
[2021-11-21] MEDS ORDERED: NITROGLYCERIN SL TABS 0.4 MG TAB SUBLINGUAL PRN (12:25)
[2021-11-21] MEDS ORDERED: ALPRAZolam 0.25 MG TAB PO PRN (12:25)
--- NOTE | 2021-11-21 12:36 | P.PN ---
Subjective Progress Note Date: 11/20/21 Principal diagnosis: ESBL Klebsiella urinary tract infection Patient is a 76 year female with multiple comorbidities presenting to the hospital where he is unable to take care of herself did have a evidence of ESBL Klebsiella urinary tract infection. The patient was complaining of chest pain and was transferred to the cardiac unit as did have elevated troponin On today's evaluation that is 11/20/2021 , the patient remains to be afebrile , patient is breathing comfortably on room air and the patient denies chest pain, patient did have occasional cough no abdominal pain or diarrhea, patient denies any urinary symptoms Objective - Vital Signs Vital signs: Vital Signs Temp 98.2 F 11/20/21 08:54 Pulse 58 L 11/20/21 13:27 Resp 20 11/20/21 12:47 BP 110/57 11/20/21 12:47 Pulse Ox 93 L 11/20/21 12:47 FiO2 Intake & Output 11/19/21 11/20/21 11/20/21 18:59 06:59 18:59 Intake Total 591.3 Output Total 400 350 Balance 191.3 -350 Intake: Intake, IV Titration 51.3 Amount Heparin Sod,Pork in 0.45% 51.3 NaCl 25,000 unit In 0.45 % NaCl 1 250ml.bag @ 18 UNITS/KG/HR 15.39 mls/hr IV .[id number] [facility] Rx#: [id number] Oral 540 Output: Urine 400 350 Other: Voiding Method Diaper Diaper Diaper External Catheter External Catheter External Catheter # Voids 1 - Exam GENERAL DESCRIPTION: An elderly female lying in bed in no distress RESPIRATORY SYSTEM: Unlabored breathing , decreased breath sounds at bases HEART: S1 S2 regular rate and rhythm , ABDOMEN: Soft , no tenderness EXTREMITIES: No edema feet - Labs CBC & Chem 7: 11/21/21 07:08 11/21/21 07:08 Labs: Abnormal Lab Results - Last 24 Hours (Table) 11/19/21 11/19/21 11/20/21 Range/Units 16:29 20:09 04:30 RBC 3.29 L (3.80-5.40) m/uL Hgb 9.2 L (11.4-16.0) gm/dL Hct 29.4 L (34.0-46.0) % RDW 19.0 H (11.5-15.5) % Lymphocytes # 0.9 L (1.0-4.8) k/uL Sodium (137-145) mmol/L Chloride (98-107) mmol/L Carbon Dioxide (22-30) mmol/L Glucose (74-99) mg/dL POC Glucose (mg/dL) 212 H 199 H (70-110) mg/dL Calcium (8.4-10.2) mg/dL 11/20/21 11/20/21 11/20/21 Range/Units 04:30 05:55 11:37 RBC (3.80-5.40) m/uL Hgb (11.4-16.0) gm/dL Hct (34.0-46.0) % RDW (11.5-15.5) % Lymphocytes # (1.0-4.8) k/uL Sodium 136 L (137-145) mmol/L Chloride 96 L (98-107) mmol/L Carbon Dioxide 40 H (22-30) mmol/L Glucose 105 H (74-99) mg/dL POC Glucose (mg/dL) 114 H 143 H (70-110) mg/dL Calcium 7.9 L (8.4-10.2) mg/dL Assessment and Plan (1) UTI (urinary tract infection) Current Visit: Yes Status: Acute Code(s): N39.0 - URINARY TRACT INFECTION, SITE NOT SPECIFIED SNOMED Code(s): 50326149 Plan: 1patient with a positive urine culture with ESBL Klebsiella possible mild cystitis in this patient did have a Perez catheter placed during this admission as well as her admission in [place] possible risk factor for the UTI clinically not behaving as a pyelonephritis or deep infection. 2 repeat urine not significantly positive however cultures were not done per [facility] policy 3patient has received 3 days of Invanz which should be enough for a cystitis, patient seemed to be doing well off antibiotic therapy, normal white count and no urinary symptoms hence no need for further antibiotics Time with Patient: Less than 30
--- NOTE | 2021-11-21 12:38 | P.PN ---
Subjective Progress Note Date: 11/21/21 Principal diagnosis: ESBL Klebsiella urinary tract infection Patient is a 76 year female with multiple comorbidities presenting to the hospital where he is unable to take care of herself did have a evidence of ESBL Klebsiella urinary tract infection. The patient was complaining of chest pain and was transferred to the cardiac unit as did have elevated troponin On today's evaluation that is 11/21/2021 , the patient continues to be afebrile , patient is breathing comfortably on room air and the patient did have occasional chest pain but no worsening, patient denies any worsening cough no abdominal pain or diarrhea, patient denies any urinary symptoms Objective - Vital Signs Vital signs: Vital Signs Temp 97.4 F L 11/21/21 08:00 Pulse 52 L 11/21/21 11:00 Resp 16 11/21/21 08:00 BP 121/70 11/21/21 08:00 Pulse Ox 93 L 11/21/21 08:00 FiO2 Intake & Output 11/20/21 11/21/21 11/21/21 18:59 06:59 18:59 Intake Total 20 Output Total 500 Balance -500 20 Intake: IV 20 Invasive Line 4 20 Output: Urine 500 Other: Voiding Method Diaper Diaper Diaper External Catheter External Catheter External Catheter # Voids 1 # Bowel Movements 0 - Exam GENERAL DESCRIPTION: An elderly female lying in bed in no distress RESPIRATORY SYSTEM: Unlabored breathing , decreased breath sounds at bases HEART: S1 S2 regular rate and rhythm , ABDOMEN: Soft , no tenderness EXTREMITIES: No edema feet - Labs CBC & Chem 7: 11/21/21 07:08 11/21/21 07:08 Labs: Abnormal Lab Results - Last 24 Hours (Table) 11/20/21 11/20/21 11/20/21 Range/Units 11:37 16:14 20:00 RBC (3.80-5.40) m/uL Hgb (11.4-16.0) gm/dL Hct (34.0-46.0) % RDW (11.5-15.5) % Sodium (137-145) mmol/L Chloride (98-107) mmol/L Carbon Dioxide (22-30) mmol/L BUN (7-17) mg/dL Glucose (74-99) mg/dL POC Glucose (mg/dL) 143 H 293 H 204 H (70-110) mg/dL Calcium (8.4-10.2) mg/dL 11/21/21 11/21/21 11/21/21 Range/Units 05:45 07:08 07:08 RBC 3.31 L (3.80-5.40) m/uL Hgb 9.2 L (11.4-16.0) gm/dL Hct 29.6 L (34.0-46.0) % RDW 18.7 H (11.5-15.5) % Sodium 136 L (137-145) mmol/L Chloride 94 L (98-107) mmol/L Carbon Dioxide 38 H (22-30) mmol/L BUN 19 H (7-17) mg/dL Glucose 106 H (74-99) mg/dL POC Glucose (mg/dL) 112 H (70-110) mg/dL Calcium 7.9 L (8.4-10.2) mg/dL Assessment and Plan (1) UTI (urinary tract infection) Current Visit: Yes Status: Acute Code(s): N39.0 - URINARY TRACT INFECTION, SITE NOT SPECIFIED SNOMED Code(s): 37534795 Plan: 1patient with a positive urine culture with ESBL Klebsiella possible mild cystitis in this patient did have a Perez catheter placed during this admission as well as her admission in [place] possible risk factor for the UTI clinically not behaving as a pyelonephritis or deep infection. 2 repeat urine not significantly positive however cultures were not done per [facility] policy 3patient has received 3 days of Invanz which should be enough for a cystitis, and the patient currently with no urinary symptomatic was normal hence recommending no further antibiotic at this point, iv should be discontinued before discharge Time with Patient: Less than 30
--- NOTE | 2021-11-21 12:50 | P.PN ---
Subjective This is a 76 year old female with a past medical history significant for hypertension, TIA, asthma, and recent prolonged hospitalization for apparent congestive heart failure and was intubated with evidence of shock, was anemic (in [place]). 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 Patient presented to the hospital secondary to generalized weakness. We were asked to see the patient in consultation initially for atrial fibrillation which was mentioned in notes from [place] however due to anemia patient was not anticoagulated. There is been no evidence of atrial fibrillation since admission here EKG and telemetry reveals multifocal atrial tachycardia. We had initially signed off on the patient on the by have been asked for shortness of breath and chest discomfort. Troponin from this morning was 0.181 patient also had evidence of mild troponin elevation on admission of 0.044, 0.040 and 0.053. Patient also found to have Deep T wave inversions. Echocardiogram from admission showed a low normal LV systolic function with an ejection fraction of 50-55% with no significant valvular abnormalities. 11/21/2021 Patient was seen and examined today resting comfortably in bed. Overall she says she's feeling better. Her breathing is better. She continues to have uppe r chest discomfort that is worse with deep inspiration. Also worse with rolling over. Vital signs of been stable. Is currently on Lasix 40 mg by mouth daily. Renal function is stable. We have not received any further records from [facility]. PHYSICAL EXAM: VITAL SIGNS: Reviewed. GENERAL: Well-developed in no acute distress. HEENT: Neck supple. No JVD LUNGS: Respirations even and unlabored. Lungs essentially clear to auscultation bilaterally. HEART: Regular rate and rhythm. S1 and S2 heard. ABDOMEN: Soft. Nondistended. Nontender. EXTREMITIES: Normal range of motion. No clubbing or cyanosis. Peripheral pulses intact. No lower extremity edema NEUROLOGIC: Awake and alert. Oriented x 3. ASSESSMENT: Generalized weakness Chest pain and shortness of breath, chest pains possibly worsened with inspiration. Troponin 0.181 which was mildly elevated on admission. She's been initiated on IV heparin. Multifocal atrial tachycardia, question of prior atrial fibrillation while in [place] Acute renal failure, resolved Abnormal troponins Prolonged QT Deep T wave inversions noted on repeat EKG History of congestive heart failure with preserved ejection fraction History of hypertension History of TIA History of asthma Recent prolonged hospitalization in [place] for apparent congestive heart failure and respiratory failure requiring intubation PLAN: From cardiology's perspective, continue current medications. We recommend cardiac catheterization to assess for ischemia. I have discussed the risks, benefits and alternative therapies for the above- mentioned procedure and for both sedation/analgesia as well as necessary blood product administration, if indicated, as they pertain to this patient. The patient has indicated understanding and acceptance of the risks and procedures discussed. Questions have been answered appropriately and she is agreeable to move forward with the above-stated procedure. We'll continue to follow the patient and provide further recommendations accordingly Plan for left cardiac catheterization with Dr. Yañez tomorrow on 11/22/2021. NPO after midnight. Nurse practitioner note has been reviewed by physician. Signing provider agrees with the documented findings, assessment, and plan of care. Objective - Vital Signs Vital signs: Vital Signs Temp 98.1 F 11/19/21 15:41 Pulse 82 11/19/21 15:41 Resp 16 11/19/21 15:41 BP 125/56 11/19/21 15:41 Pulse Ox 93 L 11/19/21 15:41 FiO2 Intake & Output 11/18/21 11/19/21 11/19/21 18:59 06:59 18:59 Intake Total 610.039 102.629 411.3 Output Total 900 1350 Balance -289.961 -1247.371 411.3 Intake: IV 100 Lactated Ringers 1,000 ml 100 @ 50 mls/hr IV .Q20H [facility] Rx#:[id number] Intake, IV Titration 510.039 102.629 51.3 Amount Heparin Sod,Pork in 0.45% 110.039 102.629 51.3 NaCl 25,000 unit In 0.45 % NaCl 1 250ml.bag @ 18 UNITS/KG/HR 15.39 mls/hr IV .[id number] [facility] Rx#: [id number] Magnesium Sulfate-D5w Pmx 400 1 gm In Dextrose/Water 1 100ml.bag @ 100 mls/hr IVPB Q1H [facility] Rx#: [id number] Oral 360 Output: Urine 900 1350 Other: Voiding Method Diaper Diaper External Catheter External Catheter # Voids 1 - Labs CBC & Chem 7: 11/21/21 07:08 11/21/21 07:08 Labs: Abnormal Lab Results - Last 24 Hours (Table) 11/18/21 11/18/21 11/18/21 Range/Units 16:43 19:11 22:50 RBC (3.80-5.40) m/uL Hgb (11.4-16.0) gm/dL MCHC (31.0-37.0) g/dL RDW (11.5-15.5) % APTT >200.0 H* (22.0-30.0) sec Sodium (137-145) mmol/L Carbon Dioxide (22-30) mmol/L Glucose (74-99) mg/dL POC Glucose (mg/dL) 180 H 170 H (70-110) mg/dL Calcium (8.4-10.2) mg/dL 11/19/21 11/19/21 11/19/21 Range/Units 05:50 06:57 06:57 RBC 3.74 L (3.80-5.40) m/uL Hgb 10.2 L (11.4-16.0) gm/dL MCHC 29.8 L (31.0-37.0) g/dL RDW 19.2 H (11.5-15.5) % APTT (22.0-30.0) sec Sodium 135 L (137-145) mmol/L Carbon Dioxide 33 H (22-30) mmol/L Glucose 111 H (74-99) mg/dL POC Glucose (mg/dL) 119 H (70-110) mg/dL Calcium 8.1 L (8.4-10.2) mg/dL 11/19/21 11/19/21 Range/Units 06:57 11:12 RBC (3.80-5.40) m/uL Hgb (11.4-16.0) gm/dL MCHC (31.0-37.0) g/dL RDW (11.5-15.5) % APTT 145.0 H* (22.0-30.0) sec Sodium (137-145) mmol/L Carbon Dioxide (22-30) mmol/L Glucose (74-99) mg/dL POC Glucose (mg/dL) 147 H (70-110) mg/dL Calcium (8.4-10.2) mg/dL
[2021-11-21] MEDS: ACETAMINOPHEN TAB 325 MG TAB PO PRN (13:26)
[2021-11-21] MEDS: ALBUTEROL NEBULIZED 2.5 MG/3 ML INHALATION SCH ×3 (14:06→20:42)
--- NOTE | 2021-11-21 14:26 | P.PN ---
Subjective Progress Note Date: 11/21/21 (seen at 0930) 76-year-old female with atrial fibrillation, congestive heart failure, diabetes, and hypothyroidism who presented to the emergency department with her niece. She was hospitalized for a month in [place] after that she went to rehab and subsequently left AGAINST MEDICAL ADVICE and drove from [place] to [place]. Family quickly realized the patient was unable to ambulate and incontinent and was unable to care for herself so they brought her to the emergency department. In the ER she underwent an extensive evaluation. Found have possible acute kidney injury, and leukocytosis. She is admitted for further monitoring. She was seen by nephrology, urology and cardiology. She was diagnosed with acute kidney injury nephrology start her on fluids. She was seen by urology CT a bdomen and pelvis revealed no acute abnormalities. She was seen by cardiology and found to have multifocal atrial tachycardia. Her renal function began to improve. She developed chest pain was found have elevated troponins. Cardiology was consulted and she was started on a heparin drip. Imaging: Renal and bladder ultrasound: Cyst with calcification in the right kidney, urinary bladder diverticulum CT abdomen and pelvis: Elevated right hemidiaphragm possibly related to paralysis, no acute abnormality within the abdomen and pelvis, no evidence of renal mass Echocardiogram: Normal left ventricular size and function Patient seen and examined at bedside. She still feels as though she is having some gurgling in her chest. Her breathing is much better than before. She states that her insurance will be active until December 18. We again discussed that she will need to figure out a way to leave the hospital before then. She denies any current chest pain. General: nontoxic, no distress, appears at stated age Derm: warm, dry Head: atraumatic, normocephalic, symmetric Eyes: EOMI, no lid lag, anicteric sclera Mouth: no lip lesion, mucus membranes moist Cardiovascular: S1S2 reg, no murmur, positive posterior tibial pulse bilateral, Lungs: Rhonchi bilateral , no accessory muscle use Abdominal: soft, nontender to palpation, no guarding, no appreciable organomegaly Ext: no gross muscle atrophy, no edema, no contractures Neuro: CN II-XI grossly intact, no focal neuro deficits Psych: Alert, oriented, appropriate affect Assessment/plan: Acute on chronic diastolic heart failure acute hypoxic respiraotry failure -Echocardiogram with EF 50-55% -Increase oral Lasix to 40 mg twice a day -Patient currently on 4 L nasal cannula -> wean O2 as tolerated Elevated troponin likely due to demand ischemia -EKG however did show new T-wave inversions -Troponins were flat and likely due to heart failure -Status post heparin drip - patient's records from [facility] does not indicate any recent heart catheterization, records available on physical chart -Cath per cardio in AM on 11/22 Elevated d-dimer -Likely due to acute phase reactant from UTI -Patient has a low well's score of 1.5 unlikely PE -Patient also refusing CTA chest pains that she does not want to lay down flat Diabetes type 2 Controlled Hold oral hypoglycemics Sliding-scale insulin General weakness/adult failure to thrive PT and OT -> recommend long-term facility ESBL UTI - ID recs: Completed treatment Acute kidney injury, Resolved Renal cysts, concluded not present Dermatitis, resolved Hypomagnesemia, resolved Hx of sick sinus syndrome, history of multifocal atrial tachycardia- A fib ruled out by cardio Ileus/vomiting, resolved Chronic Iron deficiency anemia -> patient denies any overt signs of bleeding and hemoglobin stable. Patient instructed to follow-up with PCP for further workup Hypertension, Hypothyroidism DVT prophylaxis Heparin subcu Objective - Vital Signs Vital signs: Vital Signs Temp 98.1 F 11/21/21 03:37 Pulse 50 L 11/21/21 07:35 Resp 18 11/21/21 03:37 BP 110/64 11/21/21 03:37 Pulse Ox 96 11/21/21 03:37 FiO2 Intake & Output 11/20/21 11/21/21 11/21/21 18:59 06:59 18:59 Intake Total 20 Output Total 500 Balance -500 20 Intake: IV 20 Invasive Line 4 20 Output: Urine 500 Other: Voiding Method Diaper Diaper External Catheter External Catheter # Voids 1 # Bowel Movements 0 - Labs CBC & Chem 7: 11/21/21 07:08 11/21/21 07:08 Labs: Abnormal Lab Results - Last 24 Hours (Table) 11/20/21 11/20/21 11/20/21 Range/Units 11:37 16:14 20:00 RBC (3.80-5.40) m/uL Hgb (11.4-16.0) gm/dL Hct (34.0-46.0) % RDW (11.5-15.5) % POC Glucose (mg/dL) 143 H 293 H 204 H (70-110) mg/dL 11/21/21 11/21/21 Range/Units 05:45 07:08 RBC 3.31 L (3.80-5.40) m/uL Hgb 9.2 L (11.4-16.0) gm/dL Hct 29.6 L (34.0-46.0) % RDW 18.7 H (11.5-15.5) % POC Glucose (mg/dL) 112 H (70-110) mg/dL
[2021-11-21 16:37] LABS: Glucose,Whole Blood 165 mg/dL (70-110)
[2021-11-21] MEDS: SODIUM CHLORIDE 0.9% 1,000 ML in EMPTY BAG 1 BAG IV SCH (17:04)
[2021-11-21 20:27] LABS: Glucose,Whole Blood 131 mg/dL (70-110)
[2021-11-21] MEDS: DOCUSATE 100 MG CAP PO SCH (22:27)
[2021-11-21] MEDS: MELATONIN 3 MG TABLET PO SCH (22:27)
[2021-11-21] MEDS: SENNOSIDES 8.6 MG TAB PO SCH (22:27)
[2021-11-22] MEDS: SODIUM CHLORIDE 0.9% 1,000 ML in EMPTY BAG 1 BAG IV SCH (01:32)
[2021-11-22] MEDS ORDERED: ATORVASTATIN 80 MG TAB PO ONE (06:00)
[2021-11-22 06:07] LABS: Glucose,Whole Blood 113 mg/dL (70-110)
[2021-11-22] MEDS: LEVOTHYROXINE 50 MCG TAB PO SCH (06:18)
[2021-11-22] MEDS ORDERED: HEPARIN SODIUM,PORCINE 10,000 UNIT in SODIUM CHLORIDE 0.9% 1,000 ML IRRIGATION PRN (07:00)
[2021-11-22] MEDS ORDERED: HEPARIN SODIUM,PORCINE 2,500 UNIT in SODIUM CHLORIDE 0.9% 250 ML IRRIGATION PRN (07:00)
[2021-11-22 08:12] LABS: Anisocytosis Slight; Basophils # (A) 0.1 k/uL (0-0.2); Basophils % (A) 1 %; Eosinophils # (A) 0.1 k/uL (0-0.7); Eosinophils % (A) 1 %; HCT 31.7 % (34.0-46.0); HGB 9.9 gm/dL (11.4-16.0); Hypochromasia Marked; Lymphocytes % (A) 13 %; MCH 27.8 pg (25.0-35.0); MCHC 31.2 g/dL (31.0-37.0); MCV 89.3 fL (80.0-100.0); Mean Platelet Volume 7.4; Monocytes # (A) 0.4 k/uL (0-1.0); Monocytes % (A) 5 %; Neutrophils # (A) 6.2 k/uL (1.3-7.7); Neutrophils % (A) 79 %; Platelet Count 251 k/uL (150-450); RBC 3.55 m/uL (3.80-5.40); RDW 18.5 % (11.5-15.5); WBC 7.8 k/uL (3.8-10.6)
[2021-11-22] MEDS: ALBUTEROL NEBULIZED 2.5 MG/3 ML INHALATION SCH ×4 (08:13→19:50)
[2021-11-22] MEDS: ASPIRIN 81 MG PO SCH (08:42)
[2021-11-22] MEDS: FUROSEMIDE 40 MG TAB PO SCH ×2 (08:42→16:05)
[2021-11-22] MEDS: METOPROLOL TARTRATE 25 MG TAB PO SCH ×2 (08:42→20:41)
[2021-11-22] MEDS: ISOSORBIDE MONONITRATE ER 30 MG TAB.ER.24H PO SCH (08:42)
[2021-11-22] MEDS: polyethylene glycoL 3350 17 GM POWD.PACK PO SCH (08:43)
[2021-11-22 08:46] LABS: African American GFR (CKD) >90 (>60 ml/min/1.73 sqM); Blood Urea Nitrogen 18 mg/dL (7-17); Chloride 91 mmol/L (98-107); Glucose 101 mg/dL (74-99); Non-African American GFR(CKD) 85 (>60 ml/min/1.73 sqM); Potassium 3.7 mmol/L (3.5-5.1); Sodium 136 mmol/L (137-145)
[2021-11-22 09:32] LABS: Anion Gap 9 mmol/L; Carbon Dioxide 36 mmol/L (22-30)
--- NOTE | 2021-11-22 12:19 | P.PN ---
Subjective This is a 76 year old female with a past medical history significant for hypertension, TIA, asthma, and recent prolonged hospitalization for apparent congestive heart failure and was intubated with evidence of shock, was anemic (in [place]). 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 Patient presented to the hospital secondary to generalized weakness. We were asked to see the patient in consultation initially for atrial fibrillation which was mentioned in notes from [place] however due to anemia patient was not anticoagulated. There is been no evidence of atrial fibrillation since admission here EKG and telemetry reveals multifocal atrial tachycardia. We had initially signed off on the patient on the by have been asked for shortness of breath and chest discomfort. Troponin from this morning was 0.181 patient also had evidence of mild troponin elevation on admission of 0.044, 0.040 and 0.053. Patient also found to have Deep T wave inversions. Echocardiogram from admission showed a low normal LV systolic function with an ejection fraction of 50-55% with no significant valvular abnormalities. 11/22/2021 Patient was seen and examined today resting comfortably in bed. Overall she says she's feeling better. Her breathing is better. No further chest pain. Cont inues to have coughing when lying flat. She is refusing cath at this time secondary to difficulty lying flat. Vital signs of been stable. Is currently on Lasix 40 mg BID. Renal function is stable. We have not received any further records from [facility]. PHYSICAL EXAM: VITAL SIGNS: Reviewed. GENERAL: Well-developed in no acute distress. HEENT: Neck supple. No JVD LUNGS: Respirations even and unlabored. Lungs essentially clear to auscultation bilaterally. HEART: Regular rate and rhythm. S1 and S2 heard. ABDOMEN: Soft. Nondistended. Nontender. EXTREMITIES: Normal range of motion. No clubbing or cyanosis. Peripheral pulses intact. No lower extremity edema NEUROLOGIC: Awake and alert. Oriented x 3. ASSESSMENT: Generalized weakness Chest pain and shortness of breath, chest pains possibly worsened with inspiration. Troponin 0.181 which was mildly elevated on admission. She's been initiated on IV heparin. Multifocal atrial tachycardia, question of prior atrial fibrillation while in [place] Acute renal failure, resolved Abnormal troponins Prolonged QT Deep T wave inversions noted on repeat EKG History of congestive heart failure with preserved ejection fraction History of hypertension History of TIA History of asthma Recent prolonged hospitalization in [place] for apparent congestive heart failure and respiratory failure requiring intubation PLAN: From cardiology's perspective, continue current medications and add statin. We recommend cardiac catheterization to assess for ischemia, however patient refusing today secondary to not able to lay flat and patient cannot tolerate lying flat on exam secondary to coughing. No evidence of acute MD at this time, we will continue to treat medically and close follow up as an outpatient. [place] to discharge when cleared medically. Nurse practitioner note has been reviewed by physician. Signing provider agrees with the documented findings, assessment, and plan of care. Objective - Vital Signs Vital signs: Vital Signs Temp 97.5 F L 11/22/21 08:32 Pulse 64 11/22/21 08:32 Resp 14 11/22/21 08:32 BP 128/83 11/22/21 08:32 Pulse Ox 96 11/22/21 08:32 FiO2 Intake & Output 11/21/21 11/22/21 11/22/21 18:59 06:59 18:59 Intake Total 120 Output Total 750 1200 550 Balance -630 -1200 -550 Intake: Oral 120 Output: Urine 750 1200 550 Other: Voiding Method Diaper Diaper Diaper External Catheter External Catheter External Catheter # Voids 1 - Labs CBC & Chem 7: 11/22/21 07:08 11/22/21 07:08 Labs: Abnormal Lab Results - Last 24 Hours (Table) 11/21/21 11/21/21 11/22/21 Range/Units 16:36 20:25 06:04 RBC (3.80-5.40) m/uL Hgb (11.4-16.0) gm/dL Hct (34.0-46.0) % RDW (11.5-15.5) % Sodium (137-145) mmol/L Chloride (98-107) mmol/L Carbon Dioxide (22-30) mmol/L BUN (7-17) mg/dL Glucose (74-99) mg/dL POC Glucose (mg/dL) 165 H 131 H 113 H (70-110) mg/dL Calcium (8.4-10.2) mg/dL 11/22/21 11/22/21 Range/Units 07:08 07:08 RBC 3.55 L (3.80-5.40) m/uL Hgb 9.9 L (11.4-16.0) gm/dL Hct 31.7 L (34.0-46.0) % RDW 18.5 H (11.5-15.5) % Sodium 136 L (137-145) mmol/L Chloride 91 L (98-107) mmol/L Carbon Dioxide 36 H (22-30) mmol/L BUN 18 H (7-17) mg/dL Glucose 101 H (74-99) mg/dL POC Glucose (mg/dL) (70-110) mg/dL Calcium 8.0 L (8.4-10.2) mg/dL
[2021-11-22] MEDS: HEPARIN SODIUM,PORCINE/PF 5,000 UNIT/0.5 ML SYRINGE SQ SCH ×2 (12:32→20:40)
--- NOTE | 2021-11-22 14:59 | P.PN ---
Subjective Progress Note Date: 11/22/21 (delayed charting seen at 0945) Patient is a 76-year-old female with atrial fibrillation, congestive heart failure, diabetes, and hypothyroidism who presented to the emergency department with her niece. She was hospitalized for a month in [place] after that she went to rehab and subsequently left AGAINST MEDICAL ADVICE and drove from [place] to [place]. Family quickly realized the patient was unable to ambulate and incontinent and was unable to care for herself so [facility] In the ER she underwent an extensive evaluation. Found have possible acute kidney injury, and leukocytosis. She is admitted for further monitoring. She was seen by nephrology, urology and cardiology. She was diagnosed with acute kidney injury nephrology start her on fluids. She was seen by urology CT abdomen and pelvis revealed no acute abnormalities. She was seen by cardiology and found to have multifocal atrial tachycardia. Her renal function began to improve. She developed chest pain was found have elevated troponins. Cardiology was consulted and she was started on a heparin drip. She had an echo completed without significant abnormalities. Cardio recommended cath, but patient declined as cannot lay falt Imaging: Renal and bladder ultrasound: Cyst with calcification in the right kidney, urinary bladder diverticulum CT abdomen and pelvis: Elevated right hemidiaphragm possibly related to paralysis, no acute abnormality within the abdomen and pelvis, no evidence of renal mass Echocardiogram: Normal left ventricular size and function Patient seen and examined at bedside. She states that she cannot lay flat. I discussed the patient that she will be discharged tomorrow. We discussed that she has Medicaid pending and we're trying to find a place that she may have to go wherever bilateral extensor, patient states she will not go to [place]. General: nontoxic, no distress, appears at stated age Derm: warm, dry Head: atraumatic, normocephalic, symmetric Eyes: EOMI, no lid lag, anicteric sclera Mouth: no lip lesion, mucus membranes moist Cardiovascular: S1S2 reg, no murmur, positive posterior tibial pulse bilateral, Lungs: Rhonchi bilateral , no accessory muscle use Abdominal: soft, nontender to palpation, no guarding, no appreciable orga nomegaly Ext: no gross muscle atrophy, no edema, no contractures Neuro: CN II-XI grossly intact, no focal neuro deficits Psych: Alert, oriented, appropriate affect Assessment/plan: Acute on chronic diastolic heart failure acute hypoxic respiratory failure -Echocardiogram with EF 50-55% -Oral Lasix to continue -Patient currently on 4 L nasal cannula -> wean O2 as tolerated Elevated troponin likely due to demand ischemia -EKG however did show new T-wave inversions -Troponins were flat and likely due to heart failure -Status post heparin drip - patient's records from [facility] does not indicate any recent heart catheterization, records available on physical chart -Patient decline cardiac cath as unable to lay flat. Elevated d-dimer -Likely due to acute phase reactant from UTI -Patient has a low well's score of 1.5 unlikely PE -Patient also refusing CTA chest pains that she does not want to lay down flat Diabetes type 2 -Controlled -Hold oral hypoglycemics -Sliding-scale insulin General weakness/adult failure to thrive -PT and OT -> recommend half-way facility [facility] UTI - ID recs: Completed treatment Acute kidney injury, Resolved Renal cysts, concluded not present Dermatitis, resolved Hypomagnesemia, resolved Hx of sick sinus syndrome, history of multifocal atrial tachycardia- A fib ruled out by cardio Ileus/vomiting, resolved Chronic Iron deficiency anemia -> patient denies any overt signs of bleeding and hemoglobin stable. Patient instructed to follow-up with PCP for further workup Hypertension, Hypothyroidism DVT prophylaxis Heparin subcu Active Medications Generic Name Dose Route Start Last Admin Trade Name Freq PRN Reason Stop Dose Admin Acetaminophen 650 mg 11/08/21 15:37 11/21/21 13:26 Acetaminophen Tab 325 Mg Tab PO 650 mg Q6H PRN Administration Mild Pain Albuterol Sulfate 1.25 mg 11/08/21 15:37 11/21/21 10:49 Albuterol Nebulized 1.25 Mg/3 Ml INHALATION 1.25 mg RT-Q4H PRN Administration Wheezing Albuterol Sulfate 2.5 mg 11/21/21 12:00 11/22/21 11:30 Albuterol Nebulized 2.5 Mg/3 Ml INHALATION Not Given RT-QID PIPO Aspirin 81 mg 11/18/21 12:00 11/22/21 08:42 Aspirin 81 Mg PO 81 mg DAILY PIPO Administration Atorvastatin Calcium 40 mg 11/22/21 21:00 Atorvastatin 40 Mg Tab PO HS [facility] Benzocaine/Menthol 1 each 11/20/21 20:22 07/05/22 09:19 Benzocaine/Menthol Lozeng 1 Each Lozenge MUCOUS MEM 1 each Q4HR PRN Administration Cough Bisacodyl 10 mg 11/08/21 15:37 Bisacodyl 10 Mg Supp RECTAL DAILY PRN Constipation Docusate Sodium 100 mg 11/08/21 21:00 11/21/21 22:27 Docusate 100 Mg Cap PO 100 mg HS PIPO Administration Furosemide 40 mg 11/20/21 17:00 11/22/21 08:42 Furosemide 40 Mg Tab PO Not Given 0900,1700 PIPO Guaifenesin 200 mg 11/20/21 20:22 11/21/21 09:19 Guaifenesin Syrup 100mg/5ml 200 Mg/10 Ml Cup PO 200 mg Q6HR PRN Administration Cough Heparin Sodium (Porcine) 5,000 unit 11/22/21 12:00 11/22/21 12:32 Heparin Sodium,Porcine/Pf 5,000 Unit/0.5 Ml Syringe SQ 5,000 unit Q8H PIPO Administration Isosorbide Mononitrate 30 mg 11/18/21 12:00 11/22/21 08:42 Isosorbide Mononitrate Er 30 Mg Tab.Er.24h PO 30 mg DAILY PIPO Administration Levothyroxine Sodium 50 mcg 11/09/21 06:30 11/22/21 06:18 Levothyroxine 50 Mcg Tab PO 50 mcg DAILY@0630 PIPO Administration Magnesium Hydroxide 2,400 mg 11/08/21 15:37 Magnesium Hydroxide 2,400 Mg/10 Ml Cup PO DAILY PRN Constipation Melatonin 6 mg 11/08/21 21:00 11/21/21 22:27 Melatonin 3 Mg Tablet PO 6 mg HS PIPO Administration Metoprolol Tartrate 25 mg 11/18/21 12:00 11/22/21 08:42 Metoprolol Tartrate 25 Mg Tab PO 25 mg BID PIPO Administration Naloxone HCl 0.2 mg 11/08/21 17:06 Naloxone 0.4 Mg/Ml 1 Ml Vial IV Q2M PRN Opioid Reversal Ondansetron HCl 4 mg 11/08/21 12:30 11/10/21 19:37 Ondansetron 4 Mg/2 Ml Vial IVP 4 mg Q8HR PRN Administration Nausea And Vomiting Polyethylene Glycol 17 gm 11/09/21 09:00 11/22/21 08:43 Polyethylene Glycol 3350 17 Gm Powd.Pack PO Not Given DAILY PIPO Senna 8.6 mg 11/08/21 21:00 11/21/21 22:27 Sennosides 8.6 Mg Tab PO 8.6 mg HS PIPO Administration Objective - Vital Signs Vital signs: Vital Signs Temp 97.6 F 11/22/21 12:09 Pulse 57 L 11/22/21 12:09 Resp 16 11/22/21 12:09 BP 116/73 11/22/21 12:09 Pulse Ox 94 L 11/22/21 12:09 FiO2 Intake & Output 11/21/21 11/22/21 11/22/21 18:59 06:59 18:59 Intake Total 120 Output Total 750 1200 550 Balance -630 -1200 -550 Intake: Oral 120 Output: Urine 750 1200 550 Other: Voiding Method Diaper Diaper Diaper External Catheter External Catheter External Catheter # Voids 1 - Labs CBC & Chem 7: 11/22/21 07:08 11/22/21 07:08 Labs: Abnormal Lab Results - Last 24 Hours (Table) 11/21/21 11/21/21 11/22/21 Range/Units 16:36 20:25 06:04 RBC (3.80-5.40) m/uL Hgb (11.4-16.0) gm/dL Hct (34.0-46.0) % RDW (11.5-15.5) % Sodium (137-145) mmol/L Chloride (98-107) mmol/L Carbon Dioxide (22-30) mmol/L BUN (7-17) mg/dL Glucose (74-99) mg/dL POC Glucose (mg/dL) 165 H 131 H 113 H (70-110) mg/dL Calcium (8.4-10.2) mg/dL 11/22/21 11/22/21 Range/Units 07:08 07:08 RBC 3.55 L (3.80-5.40) m/uL Hgb 9.9 L (11.4-16.0) gm/dL Hct 31.7 L (34.0-46.0) % RDW 18.5 H (11.5-15.5) % Sodium 136 L (137-145) mmol/L Chloride 91 L (98-107) mmol/L Carbon Dioxide 36 H (22-30) mmol/L BUN 18 H (7-17) mg/dL Glucose 101 H (74-99) mg/dL POC Glucose (mg/dL) (70-110) mg/dL Calcium 8.0 L (8.4-10.2) mg/dL
[2021-11-22 16:46] LABS: Glucose,Whole Blood 144 mg/dL (70-110)
[2021-11-22] MEDS: MELATONIN 3 MG TABLET PO SCH (20:41)
[2021-11-22] MEDS: SENNOSIDES 8.6 MG TAB PO SCH (20:41)
[2021-11-22 20:42] LABS: Glucose,Whole Blood 187 mg/dL (70-110)
[2021-11-22] MEDS: DOCUSATE 100 MG CAP PO SCH (20:51)
[2021-11-22] MEDS ORDERED: ATORVASTATIN 40 MG TAB PO SCH (21:00)
[2021-11-23] MEDS: HEPARIN SODIUM,PORCINE/PF 5,000 UNIT/0.5 ML SYRINGE SQ SCH ×2 (04:53→11:41)
[2021-11-23 06:13] LABS: Glucose,Whole Blood 147 mg/dL (70-110)
[2021-11-23] MEDS: LEVOTHYROXINE 50 MCG TAB PO SCH (06:31)
--- NOTE | 2021-11-23 06:55 | P.PN ---
Subjective Progress Note Date: 11/22/21 Principal diagnosis: ESBL Klebsiella urinary tract infection Patient is a 76 year female with multiple comorbidities presenting to the hospital where he is unable to take care of herself did have a evidence of ESBL Klebsiella urinary tract infection. The patient was complaining of chest pain and was transferred to the cardiac unit as did have elevated troponin On today's evaluation that is 11/22/2021 , the patient denies any fever or chills , patient is breathing comfortably on room air and the patient did have occasional chest pain but no worsening, patient denies any worsening cough no abdominal pain or diarrhea, patient denies any urinary symptoms, patient seemed to be slightly upset for going to [place] for rehab Objective - Vital Signs Vital signs: Vital Signs Temp 97.6 F 11/22/21 12:09 Pulse 57 L 11/22/21 12:09 Resp 16 11/22/21 12:09 BP 116/73 11/22/21 12:09 Pulse Ox 94 L 11/22/21 12:09 FiO2 Intake & Output 11/21/21 11/22/21 11/22/21 18:59 06:59 18:59 Intake Total 120 Output Total 750 1200 550 Balance -630 -1200 -550 Intake: Oral 120 Output: Urine 750 1200 550 Other: Voiding Method Diaper Diaper Diaper External Catheter External Catheter External Catheter # Voids 1 - Exam GENERAL DESCRIPTION: An elderly female lying in bed in no distress RESPIRATORY SYSTEM: Unlabored breathing , decreased breath sounds at bases HEART: S1 S2 regular rate and rhythm , ABDOMEN: Soft , no tenderness EXTREMITIES: No edema feet - Labs CBC & Chem 7: 11/22/21 07:08 11/22/21 07:08 Labs: Abnormal Lab Results - Last 24 Hours (Table) 11/21/21 11/21/21 11/22/21 Range/Units 16:36 20:25 06:04 RBC (3.80-5.40) m/uL Hgb (11.4-16.0) gm/dL Hct (34.0-46.0) % RDW (11.5-15.5) % Sodium (137-145) mmol/L Chloride (98-107) mmol/L Carbon Dioxide (22-30) mmol/L BUN (7-17) mg/dL Glucose (74-99) mg/dL POC Glucose (mg/dL) 165 H 131 H 113 H (70-110) mg/dL Calcium (8.4-10.2) mg/dL 11/22/21 11/22/21 Range/Units 07:08 07:08 RBC 3.55 L (3.80-5.40) m/uL Hgb 9.9 L (11.4-16.0) gm/dL Hct 31.7 L (34.0-46.0) % RDW 18.5 H (11.5-15.5) % Sodium 136 L (137-145) mmol/L Chloride 91 L (98-107) mmol/L Carbon Dioxide 36 H (22-30) mmol/L BUN 18 H (7-17) mg/dL Glucose 101 H (74-99) mg/dL POC Glucose (mg/dL) (70-110) mg/dL Calcium 8.0 L (8.4-10.2) mg/dL Assessment and Plan (1) UTI (urinary tract infection) Current Visit: Yes Status: Acute Code(s): N39.0 - URINARY TRACT INFECTION, SITE NOT SPECIFIED SNOMED Code(s): 49289241 Plan: 1patient with a positive urine culture with ESBL Klebsiella possible mild cystitis in this patient did have a Perez catheter placed during this admission as well as her admission in [place] possible risk factor for the UTI clinically not behaving as a pyelonephritis or deep infection. 2 repeat urine not significantly positive however cultures were not done per [facility] policy 3patient has received 3 days of Invanz which should be enough for a cystitis, and the patient currently with no urinary symptoms, hence recommending no further antibiotic at this point, Central line should be discontinued before discharge, infectious diseases will sign off, Please call with any questions regarding infectious disease care Time with Patient: Less than 30
[2021-11-23] MEDS: ALBUTEROL NEBULIZED 2.5 MG/3 ML INHALATION SCH ×3 (08:08→16:23)
[2021-11-23] MEDS: ASPIRIN 81 MG PO SCH (08:39)
[2021-11-23] MEDS: ISOSORBIDE MONONITRATE ER 30 MG TAB.ER.24H PO SCH (08:40)
[2021-11-23] MEDS: FUROSEMIDE 40 MG TAB PO SCH (08:40)
[2021-11-23] MEDS: METOPROLOL TARTRATE 25 MG TAB PO SCH (08:40)
[2021-11-23] MEDS: polyethylene glycoL 3350 17 GM POWD.PACK PO SCH (08:41)
[2021-11-23 11:36] LABS: Glucose,Whole Blood 116 mg/dL (70-110)
[2021-11-23 11:40] VITALS: RESP 15
--- NOTE | 2021-11-23 12:14 | P.DS ---
Providers Date of admission: 11/08/21 12:30 Expected date of discharge: 11/23/21 Attending physician: Holly Craven DO Consults: 11/08/21 12:30 Consult Physician Urgent Consulting Provider: Tawanda Jarrell Consult Reason/Comments: jovani Do you want consulting provider notified?: Yes 11/09/21 14:42 Consult Physician Routine Consulting Provider: Michael Tyler Consult Reason/Comments: RENAL CYSTS Do you want consulting provider notified?: Yes 11/11/21 10:19 Consult Physician Routine Consulting Provider: Shiloh Abreu Consult Reason/Comments: uti Do you want consulting provider notified?: Yes 11/18/21 06:00 Consult Physician Urgent Consulting Provider: Lance Yañez Consult Reason/Comments: SOB; chest discomfort Do you want consulting provider notified?: Yes, Notify in am Primary care physician: Physician Nonstaff Hospital Course: Discharge Diagnosis: Acute on chronic diastolic heart failure, EF 50-55% Acute hypoxic respiratory failure Elevated troponin likely due to demand ischemia Diabetes type 2 General weakness/adult failure to thrive ESBL UTI, reoslved Acute kidney injury, Resolved Renal cysts, concluded not present Dermatitis, resolved Hypomagnesemia, resolved Hx of sick sinus syndrome, history of multifocal atrial tachycardia- A fib ruled out by cardio Ileus/vomiting, resolved Iron deficiency anemia -> patient denies any overt signs of bleeding and hemoglobin stable. Patient instructed to follow-up with PCP for further workup Hypertension, Hypothyroidism Hospital Course: Patient is a 76-year-old female with atrial fibrillation, congestive heart failure, diabetes, and hypothyroidism who presented to the emergency department with her niece. She was hospitalized for a month in [place] after that she went to rehab and subsequently left AGAINST MEDICAL ADVICE and drove from [place] to [place]. Family quickly realized the patient was unable to ambulate and incontinent and was unable to care for herself so they brought her to the emergency department. In the ER she underwent an extensive evaluation. Found have possible acute kidney injury, and leukocytosis. She is admitted for further monitoring. She was seen by nephrology, urology and cardiology. She was diagnosed with acute kidney injury nephrology start her on fluids. She was seen by urology CT abdomen and pelvis revealed no acute abnormalities. She was seen by cardiology and found to have multifocal atrial tachycardia. Her renal function began to improve. She developed chest pain was found have elevated troponins. Cardiology was consulted and she was started on a heparin drip. She had an echo completed without significant abnormalities. Cardio recommended cath, but patient declined as cannot lay flat. She conitnued to do well. She was determined stable for outpatient cardiac evaluation. Imaging: Renal and bladder ultrasound: Cyst with calcification in the right kidney, urinary bladder diverticulum CT abdomen and pelvis: Elevated right hemidiaphragm possibly related to paralysis, no acute abnormality within the abdomen and pelvis, no evidence of renal mass Echocardiogram: Normal left ventricular size and function Follow-up: Dr. Yañez in 1 week-- or appropriate installation drafter [facility], follow BMP with sarahi Patient seen and examined at bedside. Felling better today, her cough and breathing are better, no chest pain, no shortness of breath. Vital signs reviewed and stable. General: nontoxic, no distress, appears at stated age Derm: warm, dry mutliple bruises in various stages of healing Head: atraumatic, normocephalic, symmetric Eyes: EOMI, no lid lag, anicteric sclera Mouth: no lip lesion, mucus membranes moist Cardiovascular: S1S2 reg, no murmur, positive posterior tibial pulse bilateral, Lungs: CTA bilateral, no rhonchi, no rales , no accessory muscle use Abdominal: soft, nontender to palpation, no guarding, no appreciable organomegaly Ext: no gross muscle atrophy, no edema, no contractures Neuro: CN II-XI grossly intact, no focal neuro deficits Psych: Alert, oriented, appropriate affect A total of 42 minutes of time were spent preparing this complex discharge summary. Patient was discharged on 11/23/21. Patient Condition at Discharge: Stable Plan - Discharge Summary Discharge Rx Participant: Yes New Discharge Prescriptions: New Aspirin 81 mg PO DAILY tab Furosemide [Lasix] 40 mg PO 0900,1700 tab Metoprolol Tartrate [Lopressor] 25 mg PO BID tab Albuterol Nebulized [Ventolin Nebulized] 2.5 mg INHALATION RT-QID ml Benzocaine/Menthol Lozeng [Cepacol lozenge] 1 each MUCOUS MEM Q4HR PRN lozenge PRN Reason: Cough Isosorbide Mononitrate ER [Imdur] 30 mg PO DAILY tab Atorvastatin [Lipitor] 40 mg PO HS tab guaiFENesin SYRUP 100MG/5ML [Robitussin] 200 mg PO Q6HR PRN ml PRN Reason: Cough Continue Acetaminophen [Tylenol] 650 mg PO Q6H PRN PRN Reason: Pain Levothyroxine Sodium [Synthroid] 50 mcg PO DAILY Sennosides [Senokot] 8.6 mg PO HS polyethylene glycoL 3350 [Miralax] 17 gm PO DAILY Albuterol Nebulized [Ventolin Nebulized (Accuneb)] 1.25 mg INHALATION RT-Q4H PRN PRN Reason: Wheezing Magnesium Hydroxide [Milk of Magnesia] 2,400 mg PO DAILY PRN PRN Reason: Constipation Melatonin 6 mg PO HS bisacodyL [Dulcolax] 10 mg RECTAL DAILY PRN PRN Reason: Constipation Discontinued Pantoprazole Sodium [Protonix] 40 mg PO Q12H Ondansetron [Zofran] 4 mg PO Q6H PRN PRN Reason: Nausea Docusate [Colace] 100 mg PO HS Nystatin 100,000 Unit/gm Powd [Mycostatin Powder] 1 applic TOPICAL DAILY Midodrine [ProAmatine] 5 mg PO AC-TID Na Phos,M-B/Na Phos,Di-Ba [Fleet Adult] 133 ml RECTAL DAILY PRN PRN Reason: Constipation Discharge Medication List Acetaminophen [Tylenol] 650 mg PO Q6H PRN 11/08/21 [History] Albuterol Nebulized [Ventolin Nebulized (Accuneb)] 1.25 mg INHALATION RT-Q4H PRN 11/08/21 [History] Levothyroxine Sodium [Synthroid] 50 mcg PO DAILY 11/08/21 [History] Magnesium Hydroxide [Milk of Magnesia] 2,400 mg PO DAILY PRN 11/08/21 [History] Melatonin 6 mg PO HS 11/08/21 [History] Sennosides [Senokot] 8.6 mg PO HS 11/08/21 [History] bisacodyL [Dulcolax] 10 mg RECTAL DAILY PRN 11/08/21 [History] polyethylene glycoL 3350 [Miralax] 17 gm PO DAILY 11/08/21 [History] Albuterol Nebulized [Ventolin Nebulized] 2.5 mg INHALATION RT-QID ml 11/23/21 [Rx] Aspirin 81 mg PO DAILY tab 11/23/21 [Rx] Atorvastatin [Lipitor] 40 mg PO HS tab 11/23/21 [Rx] Benzocaine/Menthol Lozeng [Cepacol lozenge] 1 each MUCOUS MEM Q4HR PRN lozenge 11/23/21 [Rx] Furosemide [Lasix] 40 mg PO 0900,1700 tab 11/23/21 [Rx] Isosorbide Mononitrate ER [Imdur] 30 mg PO DAILY tab 11/23/21 [Rx] Metoprolol Tartrate [Lopressor] 25 mg PO BID tab 11/23/21 [Rx] guaiFENesin SYRUP 100MG/5ML [Robitussin] 200 mg PO Q6HR PRN ml 11/23/21 [Rx] Follow up Appointment(s)/Referral(s): Lance Yañez MD [STAFF PHYSICIAN] - 2 Weeks Nonstaff,Physician [Primary Care Provider] - 1-2 days Patient Instructions/Handouts: Chest Pain (DC), Urinary Tract Infection in Women (DC), Hypomagnesemia (DC) Activity/Diet/Wound Care/Special Instructions: Activity: as tolerated, fall precautions Diet: Heart healthy Special Instructions: Follow BMP with lasix use Discharge Disposition: TRANSFER TO SNF/ECF
[2021-11-23 16:00] VITALS: BP 105/63; PULSE 59; TEMP 98.5
[2021-11-23 16:50] LABS: Glucose,Whole Blood 134 mg/dL (70-110)
== END 2021-11-23 17:20 | DRG 682 ==
LOC: EC 05:23 → 3SCARD 12:30 → 4SSUR 11-12 15:45 → 3SCARD 11-18 08:40
PROVIDERS: ADMIT Internal Medicine; ATTEND Internal Medicine
PROC: 02HV33Z Insertion of Infusion Device into Superior Vena Cava, Percutaneous Approach (ICD-10-PCS; principal; 2021-11-09 13:35)
DX: N17.0 Acute kidney failure with tubular necrosis (principal); I21.A1 Myocardial infarction type 2; I50.33 Acute on chronic diastolic (congestive) heart failure; J96.01 Acute respiratory failure with hypoxia; J15.0 Pneumonia due to Klebsiella pneumoniae; N39.0 Urinary tract infection, site not specified; Z16.12 Extended spectrum beta lactamase (ESBL) resistance; I47.1 Supraventricular tachycardia; E66.2 Morbid (severe) obesity with alveolar hypoventilation; K56.7 Ileus, unspecified; E83.42 Hypomagnesemia; I11.0 Hypertensive heart disease with heart failure; I48.0 Paroxysmal atrial fibrillation; I49.5 Sick sinus syndrome; E03.9 Hypothyroidism, unspecified; N28.1 Cyst of kidney, acquired; E11.9 Type 2 diabetes mellitus without complications; B96.89 Other specified bacterial agents as the cause of diseases classified elsewhere; E86.0 Dehydration; N32.3 Diverticulum of bladder; D50.9 Iron deficiency anemia, unspecified; J45.909 Unspecified asthma, uncomplicated; L30.9 Dermatitis, unspecified; R62.7 Adult failure to thrive; N39.41 Urge incontinence; L27.0 Generalized skin eruption due to drugs and medicaments taken internally; T36.1X5A Adverse effect of cephalosporins and other beta-lactam antibiotics, initial encounter; Y92.230 Patient room in hospital as the place of occurrence of the external cause; K52.9 Noninfective gastroenteritis and colitis, unspecified; Z68.29 Body mass index [BMI] 29.0-29.9, adult; Z79.890 Hormone replacement therapy; Z79.899 Other long term (current) drug therapy; Z87.440 Personal history of urinary (tract) infections; Z86.73 Personal history of transient ischemic attack (TIA), and cerebral infarction without residual deficits; Z90.710 Acquired absence of both cervix and uterus; Z86.711 Personal history of pulmonary embolism
CPT/HCPCS: 36415; 36573; 71045; 74019; 74176; 76770; 80048; 80053; 81001; 82533; 83540; 83550; 83605; 83735; 83880; 84100; 84439; 84443; 84484; 85025; 85027; 85379; 85610; 85730; 87077; 87086; 87186; 87635; 93005; 93270; 93306; 94640; 94760; 96365; 96366; 96375; 99285

== ENCOUNTER 2022-01-09 11:30 | Inpatient (IN) | payer MEDICARE ==
[2022-01-09 12:04] LABS: Anisocytosis Slight; Basophils % (A) 0 %; Eosinophils # (A) 0.1 k/uL (0-0.7); Eosinophils % (A) 1 %; HCT 35.9 % (34.0-46.0); HGB 11.3 gm/dL (11.4-16.0); Hypochromasia Slight; Lymphocytes # (A) 1.3 k/uL (1.0-4.8); Lymphocytes % (A) 12 %; MCH 27.8 pg (25.0-35.0); MCHC 31.5 g/dL (31.0-37.0); MCV 88.2 fL (80.0-100.0); Mean Platelet Volume 7.1; Monocytes # (A) 0.5 k/uL (0-1.0); Monocytes % (A) 5 %; Neutrophils # (A) 8.7 k/uL (1.3-7.7); Neutrophils % (A) 80 %; Platelet Count 395 k/uL (150-450); RBC 4.07 m/uL (3.80-5.40); RDW 17.2 % (11.5-15.5); WBC 10.9 k/uL (3.8-10.6)
[2022-01-09 12:19] LABS: Albumin 2.5 g/dL (3.5-5.0); Calcium 7.2 mg/dL (8.4-10.2); Total Bilirubin 0.5 mg/dL (0.2-1.3); Total Protein 5.2 g/dL (6.3-8.2)
--- NOTE | 2022-01-09 12:30 | ED ---
General Adult HPI - General Chief complaint: Recheck/Abnormal Lab/Rx Stated complaint: Abnormal Labs Time Seen by Provider: 01/09/22 11:35 Source: patient, EMS, RN notes reviewed, old records reviewed Mode of arrival: EMS Limitations: no limitations - History of Present Illness Initial comments: This is a 76-year-old female who is sent to us from the detention because of a low potassium. Patient denies any complaints initially however when I asked more specific questioning she does complain of some lower abdominal pain and some urinary symptoms such as dysuria. Patient denies any fever chills. Patient denies any chest pain difficult breathing shortness of breath. Patient denies any fever chills or cough. Patient denies headache patient denies any lightheadedness or dizziness. Patient states she has had no back pain and there has been no trauma recently. EMS states that her potassium was 2.2 - Related Data Home Medications Medication Instructions Recorded Confirmed Acetaminophen [Tylenol] 650 mg PO Q6H PRN 11/08/21 01/09/22 Melatonin 6 mg PO HS PRN 11/08/21 01/09/22 Sennosides [Senokot] 8.6 mg PO HS 11/08/21 01/09/22 Acetaminophen Tab [Tylenol] 650 mg PO Q4H PRN 01/09/22 01/09/22 Albuterol Nebulized [Ventolin 2.5 mg INHALATION RT-Q6H 01/09/22 01/09/22 Nebulized] Apixaban [Eliquis] 5 mg PO BID 01/09/22 01/09/22 Atorvastatin [Lipitor] 10 mg PO HS 01/09/22 01/09/22 Clotrimazole Cream [Lotrimin Cream] 1 applic TOPICAL BID 01/09/22 01/09/22 Ensure 237 ml PO BID@0900,1700 01/09/22 01/09/22 Furosemide [Lasix] 40 mg PO DAILY 01/09/22 01/09/22 Isosorbide Mononitrate ER [Imdur] 30 mg PO DAILY@0601/09/22 01/09/22 Lactulose 10 - 20 gm PO BID 01/09/22 01/09/22 Levothyroxine Sodium [Synthroid] 75 mcg PO DAILY@0601/09/22 01/09/22 Pantoprazole Sodium [Protonix] 40 mg PO BID 01/09/22 01/09/22 Potassium Chloride [Klor-Con M10] 10 meq PO DAILY 01/09/22 01/09/22 Sertraline [Zoloft] 25 mg PO DAILY 01/09/22 01/09/22 Simethicone [Gas-X] 125 mg PO TID@0600,1400,2200 01/09/22 01/09/22 ondansetron HCL [Zofran] 8 mg PO Q8HR PRN 01/09/22 01/09/22 Previous Rx's Medication Instructions Recorded Aspirin 81 mg PO DAILY tab 11/23/21 Metoprolol Tartrate [Lopressor] 25 mg PO BID tab 11/23/21 Allergies Allergy/AdvReac Type Severity Reaction Status Date / Time Penicillins Allergy Itching Verified 01/09/22 12:40 hydromorphone [From Dilaudid] AdvReac Confusion Verified 01/09/22 12:40 Review of Systems ROS Statement: Those systems with pertinent positive or pertinent negative responses have been documented in the HPI. ROS Other: All systems not noted in ROS Statement are negative. Past Medical History Past Medical History: Asthma, Heart Failure, Diabetes Mellitus, Hypertension, Pulmonary Embolus (PE), Respiratory Disorder, Thyroid Disorder History of Any Multi-Drug Resistant Organisms: ESBL Date of last positivie culture/infection: 11/09/21 ESBL MDRO Source:: Urine Past Surgical History: Appendectomy, Cholecystectomy, Hysterectomy, Uterine Ablation Additional Past Surgical History / Comment(s): Bladder lift Past Anesthesia/Blood Transfusion Reactions: No Reported Reaction Past Psychological History: No Psychological Hx Reported Smoking Status: Never smoker Past Alcohol Use History: Rare Past Drug Use History: None Reported General Exam - General Exam Comments Initial Comments: GENERAL: Patient is well-developed and well-nourished. Patient is nontoxic and well- hydrated and is in no acute distress. ENT: Neck is soft and supple. No significant lymphadenopathy is noted. Oropharynx is clear. Moist mucous membranes. Neck has full range of motion without eliciting any pain. EYES: The sclera were anicteric and conjunctiva were pink and moist. Extraocular movements were intact and pupils were equal round and reactive to light. Ey elids were unremarkable. PULMONARY: Unlabored respirations. Good breath sounds bilaterally. No audible rales rhonchi or wheezing was noted. CARDIOVASCULAR: There is a regular rate and rhythm without any murmurs gallops or rubs. ABDOMEN: Lower abdomen was tender in the suprapubic region. SKIN: Skin is clear with no lesions or rashes and otherwise unremarkable. NEUROLOGIC: Patient is alert and oriented x3. Cranial nerves II through XII are grossly intact. Motor and sensory are also intact. Normal speech, volume and content. Symmetrical smile. MUSCULOSKELETAL: Normal extremities with adequate strength and full range of motion LYMPHATICS: No significant lymphadenopathy is noted PSYCHIATRIC: Normal psychiatric evaluation. Limitations: no limitations Course Vital Signs 01/09/22 11:32 Temperature 97.7 F Pulse Rate 67 Respiratory 20 Rate Blood Pressure 115/81 O2 Sat by Pulse 90 L Oximetry Medical Decision Making - Medical Decision Making EKG shows atrial fibrillation at 75 bpm QRS is 135 Q-T intervals 428 QTC is 458. Patient's EKG shows no ST segment elevation or depression. Patient was given 2 g of Rocephin for the urinary tract infection. Patient was given IV potassium as well as by mouth potassium. - Lab Data Result diagrams: 01/09/22 11:51 01/09/22 11:51 Lab Results 01/09/22 01/09/22 01/09/22 Range/Units 11:51 11:51 11:51 WBC 10.9 H (3.8-10.6) k/uL RBC 4.07 (3.80-5.40) m/uL Hgb 11.3 L (11.4-16.0) gm/dL Hct 35.9 (34.0-46.0) % MCV 88.2 (80.0-100.0) fL MCH 27.8 (25.0-35.0) pg MCHC 31.5 (31.0-37.0) g/dL RDW 17.2 H (11.5-15.5) % Plt Count 395 (150-450) k/uL MPV 7.1 Neutrophils % 80 % Lymphocytes % 12 % Monocytes % 5 % Eosinophils % 1 % Basophils % 0 % Neutrophils # 8.7 H (1.3-7.7) k/uL Lymphocytes # 1.3 (1.0-4.8) k/uL Monocytes # 0.5 (0-1.0) k/uL Eosinophils # 0.1 (0-0.7) k/uL Basophils # 0.0 (0-0.2) k/uL Hypochromasia Slight Anisocytosis Slight Sodium 131 L (137-145) mmol/L Potassium 2.4 L* (3.5-5.1) mmol/L Chloride 85 L (98-107) mmol/L Carbon Dioxide 39 H (22-30) mmol/L Anion Gap 7 mmol/L BUN 14 (7-17) mg/dL Creatinine 1.01 (0.52-1.04) mg/dL Est GFR (CKD-EPI)AfAm 63 (>60 ml/min/1.73 sqM) Est GFR (CKD-EPI)NonAf 55 (>60 ml/min/1.73 sqM) Glucose 108 H (74-99) mg/dL Calcium 7.2 L (8.4-10.2) mg/dL Total Bilirubin 0.5 (0.2-1.3) mg/dL AST 24 (14-36) U/L ALT 13 (4-34) U/L Alkaline Phosphatase 88 (38-126) U/L Total Protein 5.2 L (6.3-8.2) g/dL Albumin 2.5 L (3.5-5.0) g/dL Amylase 42 (30-110) U/L Lipase 64 (23-300) U/L Urine Color Yellow Urine Appearance Cloudy H (Clear) Urine pH 7.5 (5.0-8.0) Ur Specific [place] 1.010 (1.001-1.035) Urine Protein Negative (Negative) Urine Glucose (UA) Negative (Negative) Urine Ketones Negative (Negative) Urine Blood Moderate H (Negative) Urine Nitrite Positive H (Negative) Urine Bilirubin Negative (Negative) Urine Urobilinogen <2.0 (<2.0) mg/dL Ur Leukocyte Esterase Large H (Negative) Urine RBC 2 (0-5) /hpf Urine WBC 69 H (0-5) /hpf Ur Squamous Epith Cells <1 (0-4) /hpf Urine Bacteria Occasional H (None) /hpf Urine Mucus Rare H (None) /hpf Disposition Clinical Impression: Hypokalemia, Urinary tract infection Disposition: ADMITTED IP TO THIS [facility] Referrals: Avery Prakash MD [Primary Care Provider] - 1-2 days Time of Disposition: 15:00
[2022-01-09 12:33] LABS: Potassium 2.4 mmol/L (3.5-5.1)
[2022-01-09] MEDS ORDERED: POTASSIUM CHLORIDE ER 20 MEQ TAB.ER PO STA (14:29)
[2022-01-09 14:53] LABS: Appearance,Urine Cloudy (Clear); Bacteria,Urine Occasional /hpf; Bilirubin,Urine Negative (Negative); Blood,Urine Moderate (Negative); Color,Urine Yellow; Glucose,Urine (UA) Negative (Negative); Ketones,Urine Negative (Negative); Leukocyte Esterase,Urine Large (Negative); Mucus,Urine Rare /hpf; Nitrite,Urine Positive (Negative); PH, Urine 7.5 (5.0-8.0); Protein,Urine Negative (Negative); RBC,Urine 2 /hpf (0-5); Squamous Epithelial Cell,Urine <1 /hpf (0-4); Urobilinogen,Urine <2.0 mg/dL (<2.0); WBC,Urine 69 /hpf (0-5)
[2022-01-09] MEDS ORDERED: cefTRIAXone IN SWFI 1,000 MG/10 ML SYRINGE IVP STA (14:57)
[2022-01-09] MEDS ORDERED: SODIUM CHLORIDE 0.9% 1,000 ML IV ONE (15:08)
[2022-01-09] MEDS ORDERED: POTASSIUM CHLORIDE 20 MEQ in WATER FOR INJECTION 1 100ML.BAG IVPB ONE (15:30)
--- NOTE | 2022-01-09 16:39 | P.HPIM ---
History of Present Illness H&P Date: 01/09/22 Chief Complaint: low potassium level Patient is a 76-year-old female with congestive heart failure, diabetes, hypertension, prior pulmonary embolism, and sick sinus syndrome who was sent in from her senior living due to low potassium levels. On arrival to the ER vital signs within normal limits. Laboratory analysis revealed a white blood cell count of 10.9, hemoglobin 11.3, sodium 131, potassium 2.4, glucose 108, calcium 7.2, urinalysis revealed large leukocyte esterase with 69 white blood cells. In the ER she was started on potassium replacement and antibiotics for possible urinary tract infection. Patient was recently hospitalized here from 11/08 through 11/23 secondary to urinary tract infection, elevated troponins, and failure to thrive. Patient seen and examined at bedside. She reports that she has had issues with hypokalemia on the past. She states that several days ago she has some nausea and vomiting and has had decreased oral intake on purpose since that time. She has been scared to have more vomiting after eating. She reports some increased urinary frequency but denies any burning. She reports some fecal incontinence as well as urinary incontinence. She states that she has had a urosepsis several times in the past and has needed to be on the ventilator and in the ICU. Pertinent positives and negatives as discussed in HPI, a complete review of systems was performed and all other systems are negative. Vital signs reviewed General: nontoxic, no distress, appears at stated age Derm: warm, dry Head: atraumatic, normocephalic, symmetric Eyes: EOMI, no lid lag, anicteric sclera, pupils equal round reactive to light ENT: Nose and ears atraumatic, no thrush, no pharyngeal erythema Neck: No thyromegaly, no cervical lymphadenopathy, trachea midline, supple Mouth: no lip lesion, mucus membranes moist Cardiovascular: S1S2 reg, no murmur, positive posterior tibial pulse bilateral, no edema, capillary refill less than 2 seconds Lungs: clear to auscultation bilateral, no rhonchi, no rales, no wheeze, no accessory muscle use Abdominal: soft, nontender to palpation, no guarding, no appreciable organomegaly, normal bowel sounds Ext: no gross muscle atrophy, muscle strength muscle strength 5 out of 5 in all 4 extremities, no contractures Neuro: CN II-XII grossly intact, light touch intact all 4 extremities, finger to nose within normal limits, Psych: Alert, oriented, appropriate affect Assessment/Plan: Hypokalemia -Suspect secondary to diuretic use. Patient is already on potassium supplementation. Urinary tract infection, present on admission -Rocephin -Await urine culture Diabetes mellitus type 2 -Not on medications at baseline and likely will not need any coverage -Follow blood sugars Hypertension, controlled -Resume home medications of Lopressor, Imdur Chronic: Chronic congestive heart failure Asthma Hypothyroidism The patient is admitted with an anticipated less than 2 midnight stay for evaluation of hypokalemia Surrogate decision-maker: Nephew CODE STATUS: Full DVT prophylaxis: SCDs Discussed with: Patient, Nursing, ED Provider Anticipated discharge date: in AM Anticipated discharge place: return to SNF A total of [45] minutes was spent on the care of this complex patient more than 50% of the time was spent in counseling and care coordination. Past Medical History Past Medical History: Asthma, Heart Failure, Diabetes Mellitus, Hypertension, Pulmonary Embolus (PE), Respiratory Disorder, Thyroid Disorder History of Any Multi-Drug Resistant Organisms: ESBL Date of last positivie culture/infection: 11/09/21 ESBL MDRO Source:: Urine Past Surgical History: Appendectomy, Cholecystectomy, Hysterectomy, Uterine Ablation Additional Past Surgical History / Comment(s): Bladder lift Past Anesthesia/Blood Transfusion Reactions: No Reported Reaction Past Psychological History: No Psychological Hx Reported Smoking Status: Never smoker Past Alcohol Use History: Rare Past Drug Use History: None Reported - Past Family History Father Additional Family Medical History / Comment(s): no known heart disease Medications and Allergies Home Medications Medication Instructions Recorded Confirmed Type Acetaminophen [Tylenol] 650 mg PO Q6H PRN 11/08/21 01/09/22 History Melatonin 6 mg PO HS PRN 11/08/21 01/09/22 History Sennosides [Senokot] 8.6 mg PO HS 11/08/21 01/09/22 History Aspirin 81 mg PO DAILY tab 11/23/21 01/09/22 Rx Metoprolol Tartrate [Lopressor] 25 mg PO BID tab 11/23/21 01/09/22 Rx Acetaminophen Tab [Tylenol] 650 mg PO Q4H PRN 01/09/22 01/09/22 History Albuterol Nebulized [Ventolin 2.5 mg INHALATION RT-Q6H 01/09/22 01/09/22 History Nebulized] Apixaban [Eliquis] 5 mg PO BID 01/09/22 01/09/22 History Atorvastatin [Lipitor] 10 mg PO HS 01/09/22 01/09/22 History Clotrimazole Cream [Lotrimin Cream] 1 applic TOPICAL BID 01/09/22 01/09/22 History Ensure 237 ml PO BID@0900,1700 01/09/22 01/09/22 History Furosemide [Lasix] 40 mg PO DAILY 01/09/22 01/09/22 History Isosorbide Mononitrate ER [Imdur] 30 mg PO DAILY@0600 01/09/22 01/09/22 History Lactulose 10 - 20 gm PO BID 01/09/22 01/09/22 History Levothyroxine Sodium [Synthroid] 75 mcg PO DAILY@0600 01/09/22 01/09/22 History Pantoprazole Sodium [Protonix] 40 mg PO BID 01/09/22 01/09/22 History Potassium Chloride [Klor-Con M10] 10 meq PO DAILY 01/09/22 01/09/22 History Sertraline [Zoloft] 25 mg PO DAILY 01/09/22 01/09/22 History Simethicone [Gas-X] 125 mg PO TID@0600,1400,2200 01/09/22 01/09/22 History ondansetron HCL [Zofran] 8 mg PO Q8HR PRN 01/09/22 01/09/22 History Allergies Allergy/AdvReac Type Severity Reaction Status Date / Time Penicillins Allergy Itching Verified 01/09/22 12:40 hydromorphone [From Dilaudid] AdvReac Confusion Verified 01/09/22 12:40 Physical Exam Osteopathic Statement: *. No significant issues noted on an osteopathic structural exam other than those noted in the History and Physical/Consult. Vitals: Vital Signs Temp Pulse Resp BP Pulse Ox 01/09/22 11:32 97.7 F 67 20 115/81 90 L Intake and Output 01/09/22 01/09/22 01/09/22 06:59 14:59 22:59 Other: Weight 83.461 kg Results CBC & Chem 7: 01/09/22 11:51 01/09/22 11:51 Labs: Abnormal Lab Results - Last 24 Hours (Table) 01/09/22 01/09/22 01/09/22 Range/Units 11:51 11:51 11:51 WBC 10.9 H (3.8-10.6) k/uL Hgb 11.3 L (11.4-16.0) gm/dL RDW 17.2 H (11.5-15.5) % Neutrophils # 8.7 H (1.3-7.7) k/uL Sodium 131 L (137-145) mmol/L Potassium 2.4 L* (3.5-5.1) mmol/L Chloride 85 L (98-107) mmol/L Carbon Dioxide 39 H (22-30) mmol/L Glucose 108 H (74-99) mg/dL Calcium 7.2 L (8.4-10.2) mg/dL Total Protein 5.2 L (6.3-8.2) g/dL Albumin 2.5 L (3.5-5.0) g/dL Urine Appearance Cloudy H (Clear) Urine Blood Moderate H (Negative) Urine Nitrite Positive H (Negative) Ur Leukocyte Esterase Large H (Negative) Urine WBC 69 H (0-5) /hpf Urine Bacteria Occasional H (None) /hpf Urine Mucus Rare H (None) /hpf
[2022-01-09] MEDS ORDERED: NALOXONE 0.4 MG/ML 1 ML VIAL IV PRN (16:54)
[2022-01-09] MEDS ORDERED: ONDANSETRON 4 MG/2 ML VIAL IVP PRN (16:54)
[2022-01-09] MEDS ORDERED: ACETAMINOPHEN TAB 325 MG TAB PO PRN (16:54)
[2022-01-09] MEDS ORDERED: MELATONIN 3 MG TABLET PO PRN (16:54)
[2022-01-09] MEDS: PANTOPRAZOLE 40 MG TABLET PO SCH (18:15)
[2022-01-09] MEDS: ALBUTEROL NEBULIZED 2.5 MG/3 ML INHALATION SCH (20:00)
[2022-01-09] MEDS: SIMETHICONE 80 MG CHEWABLE PO SCH (21:31)
[2022-01-09] MEDS: SENNOSIDES 8.6 MG TAB PO SCH (21:31)
[2022-01-09] MEDS: ATORVASTATIN 10 MG TAB PO SCH (21:31)
[2022-01-09] MEDS: APIXABAN 5 MG TAB PO SCH (21:31)
[2022-01-09] MEDS: METOPROLOL TARTRATE 25 MG TAB PO SCH (21:32)
[2022-01-09 21:33] LABS: African American GFR (CKD) 80 (>60 ml/min/1.73 sqM); Anion Gap 10 mmol/L; Blood Urea Nitrogen 14 mg/dL (7-17); Calcium 7.2 mg/dL (8.4-10.2); Carbon Dioxide 30 mmol/L (22-30); Chloride 90 mmol/L (98-107); Glucose 101 mg/dL (74-99); Non-African American GFR(CKD) 70 (>60 ml/min/1.73 sqM); Potassium 3.5 mmol/L (3.5-5.1); Sodium 130 mmol/L (137-145)
[2022-01-10] MEDS: SIMETHICONE 80 MG CHEWABLE PO SCH ×3 (06:06→20:22)
[2022-01-10] MEDS: LEVOTHYROXINE 75 MCG TAB PO SCH (06:07)
[2022-01-10] MEDS: ISOSORBIDE MONONITRATE ER 30 MG TAB.ER.24H PO SCH (06:07)
[2022-01-10 06:41] LABS: African American GFR (CKD) 78 (>60 ml/min/1.73 sqM); Anion Gap 7 mmol/L; Blood Urea Nitrogen 15 mg/dL (7-17); Calcium 7.3 mg/dL (8.4-10.2); Carbon Dioxide 32 mmol/L (22-30); Chloride 93 mmol/L (98-107); Glucose 95 mg/dL (74-99); Non-African American GFR(CKD) 68 (>60 ml/min/1.73 sqM); Sodium 132 mmol/L (137-145)
[2022-01-10 06:44] LABS: Magnesium 1.1 mg/dL (1.6-2.3); Potassium 3.8 mmol/L (3.5-5.1)
[2022-01-10 06:58] LABS: Anisocytosis Slight; HCT 33.1 % (34.0-46.0); HGB 10.8 gm/dL (11.4-16.0); MCH 28.5 pg (25.0-35.0); MCHC 32.5 g/dL (31.0-37.0); MCV 87.5 fL (80.0-100.0); Mean Platelet Volume 8.4; Platelet Count 374 k/uL (150-450); RBC 3.78 m/uL (3.80-5.40); RDW 17.3 % (11.5-15.5); WBC 13.7 k/uL (3.8-10.6)
[2022-01-10] MEDS: ALBUTEROL NEBULIZED 2.5 MG/3 ML INHALATION SCH ×5 (07:18→20:46)
[2022-01-10 07:43] LABS: Glucose,Whole Blood 96 mg/dL (70-110)
[2022-01-10] MEDS: ASPIRIN 81 MG PO SCH (09:01)
[2022-01-10] MEDS: FUROSEMIDE 40 MG TAB PO SCH (09:01)
[2022-01-10] MEDS: METOPROLOL TARTRATE 25 MG TAB PO SCH ×2 (09:01→20:22)
[2022-01-10] MEDS: APIXABAN 5 MG TAB PO SCH (09:01)
[2022-01-10] MEDS: PANTOPRAZOLE 40 MG TABLET PO SCH ×2 (09:01→17:55)
[2022-01-10] MEDS: POTASSIUM CHLORIDE ER 10 MEQ TAB.ER.PRT PO SCH (09:01)
[2022-01-10] MEDS: SERTRALINE 25 MG TAB PO SCH (09:03)
[2022-01-10] MEDS: MAGNESIUM SULFATE-D5W PMX 1 GM in DEXTROSE/WATER 1 100ML.BAG IVPB SCH ×4 (11:48→16:38)
[2022-01-10 12:17] LABS: Glucose,Whole Blood 111 mg/dL (70-110)
--- NOTE | 2022-01-10 13:38 | P.PN ---
Subjective Progress Note Date: 01/10/22 Principal diagnosis: hypokalemia Patient is a 76-year-old female with congestive heart failure, diabetes, hypertension, prior pulmonary embolism, and sick sinus syndrome who was sent in from her longterm due to low potassium levels. On arrival to the ER vital signs within normal limits. Laboratory analysis revealed a white blood cell count of 10.9, hemoglobin 11.3, sodium 131, potassium 2.4, glucose 108, calcium 7.2, urinalysis revealed large leukocyte esterase with 69 white blood cells. In the ER she was started on potassium replacement and antibiotics for possible urinary tract infection. She did well with potassium replacement. However the next morning her white blood cell was increased. He was reviewed that her last urinary tract infection with Klebsiella that was fully resistant. She was transitioned from Rocephin to meropenem. Cultures are pending. Patient seen and examined at bedside. She complains of some possible vaginal versus urinary bleeding. She reports some blood in her urine. She denies any nausea, vomiting, or abdominal pain. General: nontoxic, no distress, appears at stated age Derm: warm, dry Head: atraumatic, normocephalic, symmetric Eyes: EOMI, no lid lag, anicteric sclera Mouth: no lip lesion, mucus membranes moist Cardiovascular: S1S2 reg, no murmur, positive posterior tibial pulse bilateral, Lungs: Decreased breath sounds bilateral, no rhonchi, no rales , no accessory muscle use, hematuria. Abdominal: soft, nontender to palpation, no guarding, no appreciable organomegaly Ext: no gross muscle atrophy, no edema, no contractures Neuro: CN II-XI grossly intact, no focal neuro deficits Psych: Alert, oriented, appropriate affect Assessment/Plan: Urinary tract infection, present on admission -Rocephin change to merropenem due to hx of ESBL and increasing WBC -Await urine culture Anemia -0.5 g drop undetermined significance -Appears to have hematuria -Follow CBC Hyponatremia secondary decreased oral intake -Improving with fluids Hypomagnesemia -Recheck and repeat in a.m. Diabetes mellitus type 2 -Not on medications at baseline and likely will not need any coverage -Follow blood sugars Hypertension, controlled -continue Lopressor, Imdur Chronic: Chronic congestive heart failure Asthma Hypothyroidism Hypokalemia, resolved DVT prophylaxis: eliquis on hold, scds Discussed with: patient, nursing Anticipated discharge: in AM Anticipated discharge place: return to SNF A total of 35 minutes was spent on the care of this complex patient more than 50% of the time was spent in counseling and care coordination. Objective - Vital Signs Vital signs: Vital Signs Temp 97.5 F L 01/10/22 08:00 Pulse 74 01/10/22 11:39 Resp 20 01/10/22 08:00 BP 131/70 01/10/22 08:00 Pulse Ox 99 01/10/22 08:00 FiO2 Intake & Output 01/09/22 01/10/22 01/10/22 18:59 06:59 18:59 Weight 83.461 kg Other: Voiding Method Diaper External Catheter - Labs CBC & Chem 7: 01/10/22 05:47 01/10/22 05:47 Labs: Abnormal Lab Results - Last 24 Hours (Table) 01/09/22 01/09/22 01/10/22 Range/Units 11:51 20:52 05:47 WBC 13.7 H (3.8-10.6) k/uL RBC 3.78 L (3.80-5.40) m/uL Hgb 10.8 L (11.4-16.0) gm/dL Hct 33.1 L (34.0-46.0) % RDW 17.3 H (11.5-15.5) % Sodium 130 L (137-145) mmol/L Chloride 90 L (98-107) mmol/L Carbon Dioxide (22-30) mmol/L Glucose 101 H (74-99) mg/dL POC Glucose (mg/dL) (70-110) mg/dL Calcium 7.2 L (8.4-10.2) mg/dL Magnesium (1.6-2.3) mg/dL Urine Appearance Cloudy H (Clear) Urine Blood Moderate H (Negative) Urine Nitrite Positive H (Negative) Ur Leukocyte Esterase Large H (Negative) Urine WBC 69 H (0-5) /hpf Urine Bacteria Occasional H (None) /hpf Urine Mucus Rare H (None) /hpf 01/10/22 01/10/22 Range/Units 05:47 12:15 WBC (3.8-10.6) k/uL RBC (3.80-5.40) m/uL Hgb (11.4-16.0) gm/dL Hct (34.0-46.0) % RDW (11.5-15.5) % Sodium 132 L (137-145) mmol/L Chloride 93 L (98-107) mmol/L Carbon Dioxide 32 H (22-30) mmol/L Glucose (74-99) mg/dL POC Glucose (mg/dL) 111 H (70-110) mg/dL Calcium 7.3 L (8.4-10.2) mg/dL Magnesium 1.1 L (1.6-2.3) mg/dL Urine Appearance (Clear) Urine Blood (Negative) Urine Nitrite (Negative) Ur Leukocyte Esterase (Negative) Urine WBC (0-5) /hpf Urine Bacteria (None) /hpf Urine Mucus (None) /hpf Microbiology - Last 24 Hours (Table) 01/09/22 11:51 Urine Culture - Preliminary Urine,Voided
[2022-01-10 17:28] LABS: Glucose,Whole Blood 139 mg/dL (70-110)
[2022-01-10] MEDS: MEROPENEM 1 GM in SODIUM CHLORIDE 0.9% 100 ML IVPB SCH (17:52)
[2022-01-10] MEDS: ATORVASTATIN 10 MG TAB PO SCH (20:22)
[2022-01-10] MEDS: SENNOSIDES 8.6 MG TAB PO SCH (20:22)
[2022-01-10 22:07] LABS: Glucose,Whole Blood 111 mg/dL (70-110)
[2022-01-11] MEDS: MEROPENEM 1 GM in SODIUM CHLORIDE 0.9% 100 ML IVPB SCH ×4 (00:34→23:24)
[2022-01-11] MEDS: SIMETHICONE 80 MG CHEWABLE PO SCH ×3 (05:43→23:20)
[2022-01-11] MEDS: LEVOTHYROXINE 75 MCG TAB PO SCH (05:43)
[2022-01-11] MEDS: ISOSORBIDE MONONITRATE ER 30 MG TAB.ER.24H PO SCH (05:43)
[2022-01-11 06:13] LABS: African American GFR (CKD) >90 (>60 ml/min/1.73 sqM); Anion Gap 6 mmol/L; Blood Urea Nitrogen 15 mg/dL (7-17); Calcium 7.2 mg/dL (8.4-10.2); Carbon Dioxide 32 mmol/L (22-30); Chloride 91 mmol/L (98-107); Glucose 99 mg/dL (74-99); Non-African American GFR(CKD) 81 (>60 ml/min/1.73 sqM); Sodium 129 mmol/L (137-145)
[2022-01-11 06:43] LABS: Anisocytosis Slight; HCT 30.7 % (34.0-46.0); HGB 9.7 gm/dL (11.4-16.0); MCH 27.3 pg (25.0-35.0); MCHC 31.4 g/dL (31.0-37.0); MCV 86.7 fL (80.0-100.0); Mean Platelet Volume 8.5; Platelet Count 327 k/uL (150-450); RBC 3.54 m/uL (3.80-5.40); RDW 17.4 % (11.5-15.5); WBC 10.7 k/uL (3.8-10.6)
[2022-01-11 07:14] LABS: Glucose,Whole Blood 93 mg/dL (70-110)
[2022-01-11] MEDS: FUROSEMIDE 40 MG TAB PO SCH (07:55)
[2022-01-11] MEDS: PANTOPRAZOLE 40 MG TABLET PO SCH ×2 (07:55→18:27)
[2022-01-11] MEDS: METOPROLOL TARTRATE 25 MG TAB PO SCH ×2 (07:55→23:19)
[2022-01-11] MEDS: ASPIRIN 81 MG PO SCH (07:55)
[2022-01-11] MEDS: POTASSIUM CHLORIDE ER 10 MEQ TAB.ER.PRT PO SCH (07:55)
[2022-01-11] MEDS: SERTRALINE 25 MG TAB PO SCH (07:56)
[2022-01-11] MEDS: ALBUTEROL NEBULIZED 2.5 MG/3 ML INHALATION SCH ×4 (08:44→20:02)
[2022-01-11] MEDS ORDERED: POTASSIUM CHLORIDE ER 20 MEQ TAB.ER PO STA (10:10)
[2022-01-11] MEDS ORDERED: POTASSIUM BICARBONATE/CIT AC 20 MEQ TABLET.EFF PO ONE (10:30)
[2022-01-11 11:49] LABS: Glucose,Whole Blood 100 mg/dL (70-110)
--- NOTE | 2022-01-11 13:42 | P.PN ---
Subjective Progress Note Date: 01/11/22 (delayed charting seen at 1015) Principal diagnosis: hypokalemia Patient is a 76-year-old female with congestive heart failure, diabetes, hypertension, prior pulmonary embolism, and sick sinus syndrome who was sent in from her skilled nursing due to low potassium levels. On arrival to the ER vital signs within normal limits. Laboratory analysis revealed a white blood cell count of 10.9, hemoglobin 11.3, sodium 131, potassium 2.4, glucose 108, calcium 7.2, urinalysis revealed large leukocyte esterase with 69 white blood cells. In the ER she was started on potassium replacement and antibiotics for possible urinary tract infection. She did well with potassium replacement. However the next morning her white blood cell was increased. He was reviewed that her last urinary tract infection with Klebsiella that was fully resistant. She was transitioned from Rocephin to meropenem. Cultures are pending.She was noted to develop hematuria on 01/11/22. She hadn't appear weak in place. Nurses bladder scanned her with this in place and had 400. I asked him to remove the purulent catheter and attempt post void residual. Patient refused to use a bedpan and therefore voided in breif post void completed at 525. Patient refused nursing to insert rios stating she has had multiple foleys in the past and only urology can insert them. Patient seen and examined at bedside. She complains of not wanting the purulent taken out. She complains that she cannot tell when she needs to void. She complains of pain in her legs and not wanting to in bed. We discussed still awaiting cultures and that we may need urology to see her. General: nontoxic, no distress, appears at stated age Derm: warm, dry Head: atraumatic, normocephalic, symmetric Eyes: EOMI, no lid lag, anicteric sclera Mouth: no lip lesion, mucus membranes moist Cardiovascular: S1S2 reg, no murmur, positive posterior tibial pulse bilateral, Lungs: Decreased breath sounds bilateral, no rhonchi, no rales , no accessory muscle use, hematuria. Abdominal: soft, nontender to palpation, no guarding, no appreciable organomegaly Ext: no gross muscle atrophy, no edema, no contractures Neuro: CN II-XI grossly intact, no focal neuro deficits Psych: Alert, oriented, appropriate affect Assessment/Plan: Urinary tract infection, present on admission - merropenem D#2 due to hx of ESBL and increasing WBC - Await urine culture Hematuria with urinary retention - consult urology - Patient refusing nurse to insert rios. Anemia -2 g drop continue to monitor may be secondary to fluids -Appears to have hematuria -Follow CBC - eliquis is on hold Hyponatremia secondary decreased oral intake - is off fluids and again sodium decreased - stop lasix - enocurage oral intake Hypomagnesemia -await recheck Hypokalemia - hold lasix - replace and recheck in AM Diabetes mellitus type 2 -Not on medications at baseline and likely will not need any coverage -Follow blood sugars Hypertension, controlled -continue Lopressor, Imdur Chronic: Chronic congestive heart failure Asthma Hypothyroidism Hypokalemia, resolved DVT prophylaxis: eliquis on hold, scds Discussed with: patient, nursing Anticipated discharge: in 1-[address]: return to SNF A total of 35 minutes was spent on the care of this complex patient more than 50% of the time was spent in counseling and care coordination. Objective - Vital Signs Vital signs: Vital Signs Temp 97.5 F L 01/11/22 08:00 Pulse 60 01/11/22 12:14 Resp 16 01/11/22 08:00 BP 101/64 01/11/22 08:00 Pulse Ox 92 L 01/11/22 08:00 FiO2 Intake & Output 01/10/22 01/11/22 01/11/22 18:59 06:59 18:59 Intake Total 180 Output Total 300 Balance -120 Intake: Oral 180 Output: Urine 300 Other: Voiding Method Diaper Diaper Diaper External Catheter External Catheter External Catheter # Voids 1 1 - Labs CBC & Chem 7: 01/11/22 05:47 01/11/22 05:47 Labs: Abnormal Lab Results - Last 24 Hours (Table) 01/10/22 01/10/22 01/11/22 Range/Units 17:26 22:06 05:47 WBC 10.7 H (3.8-10.6) k/uL RBC 3.54 L (3.80-5.40) m/uL Hgb 9.7 L (11.4-16.0) gm/dL Hct 30.7 L (34.0-46.0) % RDW 17.4 H (11.5-15.5) % Sodium (137-145) mmol/L Potassium (3.5-5.1) mmol/L Chloride (98-107) mmol/L Carbon Dioxide (22-30) mmol/L POC Glucose (mg/dL) 139 H 111 H (70-110) mg/dL Calcium (8.4-10.2) mg/dL 01/11/22 Range/Units 05:47 WBC (3.8-10.6) k/uL RBC (3.80-5.40) m/uL Hgb (11.4-16.0) gm/dL Hct (34.0-46.0) % RDW (11.5-15.5) % Sodium 129 L (137-145) mmol/L Potassium 3.0 L (3.5-5.1) mmol/L Chloride 91 L (98-107) mmol/L Carbon Dioxide 32 H (22-30) mmol/L POC Glucose (mg/dL) (70-110) mg/dL Calcium 7.2 L (8.4-10.2) mg/dL Microbiology - Last 24 Hours (Table) 01/09/22 16:24 Blood Culture - Preliminary Blood No Growth after 24 hours 01/09/22 16:24 Blood Culture - Preliminary Blood No Growth after 24 hours 01/09/22 11:51 Urine Culture - Preliminary Urine,Voided Gram Neg Bacilli
[2022-01-11] MEDS ORDERED: OXYBUTYNIN CHLORIDE 5 MG TAB PO STA (14:45)
[2022-01-11] MEDS ORDERED: HYDROmorphone 0.5 MG/0.5 ML SYRINGE IVP STA (14:52)
[2022-01-11] MEDS: PHENAZOPYRIDINE 100 MG TAB PO STA ×2 (15:29→15:30)
[2022-01-11 16:44] LABS: Glucose,Whole Blood 90 mg/dL (70-110)
[2022-01-11] MEDS: traMADol 50 MG TAB PO PRN (18:26)
--- NOTE | 2022-01-11 18:35 | P.GSCN ---
History of Present Illness Consult date: 01/11/22 Reason for Consult: Urinary retention History of present illness: This is a 76-year-old female admitted to the hospital with hypokalemia and a UTI. Patient is incontinent and she is been managed with a pure wick. Her postvoid residual was checked today and was elevated at 400 mL, subsequently Perez catheter was placed but her bladder only had 200 mL's of cloudy urine. Prior to this hospitalization she denies any history of voiding dysfunction. She indicated since the catheter was placed, she's experienced left lower quadrant pain with radiation to the shoulder. Denies any dysuria or gross hematuria. Indicated has had similar episodes in the past upon Perez insertion. Review of Systems - Constitutional Denies fever, Denies weight loss - Cardiovascular Denies chest pain, Denies shortness of breath - Respiratory Denies cough, Denies 7 - Gastrointestinal Reports abdominal pain - Genitourinary Genitourinary: Denies dysuria, Denies flank pain, Denies hematuria Past Medical History Past Medical History: Asthma, Heart Failure, Diabetes Mellitus, Hypertension, Pulmonary Embolus (PE), Respiratory Disorder, Thyroid Disorder History of Any Multi-Drug Resistant Organisms: ESBL Year Discovered:: 11/09/21 ESBL MDRO Source:: Urine Past Surgical History: Appendectomy, Cholecystectomy, Hysterectomy, Uterine Ablation Additional Past Surgical History / Comment(s): Bladder lift Past Anesthesia/Blood Transfusion Reactions: No Reported Reaction Past Psychological History: No Psychological Hx Reported Smoking Status: Never smoker Past Alcohol Use History: Rare Past Drug Use History: None Reported - Past Family History Father Additional Family Medical History / Comment(s): no known heart disease Medications and Allergies Home Medications Medication Instructions Recorded Confirmed Type Acetaminophen [Tylenol] 650 mg PO Q6H PRN 11/08/21 01/09/22 History Melatonin 6 mg PO HS PRN 11/08/21 01/09/22 History Sennosides [Senokot] 8.6 mg PO HS 11/08/21 01/09/22 History Aspirin 81 mg PO DAILY tab 11/23/21 01/09/22 Rx Metoprolol Tartrate [Lopressor] 25 mg PO BID tab 11/23/21 01/09/22 Rx Acetaminophen Tab [Tylenol] 650 mg PO Q4H PRN 01/09/22 01/09/22 History Albuterol Nebulized [Ventolin 2.5 mg INHALATION RT-Q6H 01/09/22 01/09/22 History Nebulized] Apixaban [Eliquis] 5 mg PO BID 01/09/22 01/09/22 History Atorvastatin [Lipitor] 10 mg PO HS 01/09/22 01/09/22 History Clotrimazole Cream [Lotrimin Cream] 1 applic TOPICAL BID 01/09/22 01/09/22 H istory Ensure 237 ml PO BID@0900,1700 01/09/22 01/09/22 History Furosemide [Lasix] 40 mg PO DAILY 01/09/22 01/09/22 History Isosorbide Mononitrate ER [Imdur] 30 mg PO DAILY@0600 01/09/22 01/09/22 History Lactulose 10 - 20 gm PO BID 01/09/22 01/09/22 History Levothyroxine Sodium [Synthroid] 75 mcg PO DAILY@0600 01/09/22 01/09/22 History Pantoprazole Sodium [Protonix] 40 mg PO BID 01/09/22 01/09/22 History Potassium Chloride [Klor-Con M10] 10 meq PO DAILY 01/09/22 01/09/22 History Sertraline [Zoloft] 25 mg PO DAILY 01/09/22 01/09/22 History Simethicone [Gas-X] 125 mg PO TID@0600,1400,2200 01/09/22 01/09/22 History ondansetron HCL [Zofran] 8 mg PO Q8HR PRN 01/09/22 01/09/22 History Allergies Allergy/AdvReac Type Severity Reaction Status Date / Time Penicillins Allergy Itching Verified 01/09/22 12:40 hydromorphone [From Dilaudid] AdvReac Confusion Verified 01/09/22 12:40 Surgical - Exam Vital Signs Temp Pulse Resp BP Pulse Ox 97.7 F 67 20 115/81 90 L 01/09/22 11:32 01/09/22 11:32 01/09/22 11:32 01/09/22 11:32 01/09/22 11:32 - General no distress, moderate pain - Eyes normal ocular movement, no pale - ENT normal nares, normal mucosa - Respiratory normal expansion, normal respiratory effort - Abdomen Abdomen: soft, tender (Left lower quadrant) - Psychiatric oriented to time, oriented to person, oriented to place Results - Labs 01/11/22 05:47 01/11/22 05:47 Abnormal Lab Results - Last 24 Hours (Table) 01/10/22 01/11/22 01/11/22 Range/Units 22:06 05:47 05:47 WBC 10.7 H (3.8-10.6) k/uL RBC 3.54 L (3.80-5.40) m/uL Hgb 9.7 L (11.4-16.0) gm/dL Hct 30.7 L (34.0-46.0) % RDW 17.4 H (11.5-15.5) % Sodium 129 L (137-145) mmol/L Potassium 3.0 L (3.5-5.1) mmol/L Chloride 91 L (98-107) mmol/L Carbon Dioxide 32 H (22-30) mmol/L POC Glucose (mg/dL) 111 H (70-110) mg/dL Calcium 7.2 L (8.4-10.2) mg/dL Microbiology - Last 24 Hours (Table) 01/09/22 16:24 Blood Culture - Preliminary Blood No Growth after 48 hours 01/09/22 16:24 Blood Culture - Preliminary Blood No Growth after 48 hours 01/09/22 11:51 Urine Culture - Preliminary Urine,Voided Gram Neg Bacilli Diabetes panel 01/11/22 Range/Units 05:47 Sodium 129 L (137-145) mmol/L Potassium 3.0 L (3.5-5.1) mmol/L Chloride 91 L (98-107) mmol/L Carbon Dioxide 32 H (22-30) mmol/L BUN 15 (7-17) mg/dL Creatinine 0.73 (0.52-1.04) mg/dL Glucose 99 (74-99) mg/dL Calcium 7.2 L (8.4-10.2) mg/dL Calcium panel 01/11/22 Range/Units 05:47 Calcium 7.2 L (8.4-10.2) mg/dL Pituitary panel 01/11/22 Range/Units 05:47 Sodium 129 L (137-145) mmol/L Potassium 3.0 L (3.5-5.1) mmol/L Chloride 91 L (98-107) mmol/L Carbon Dioxide 32 H (22-30) mmol/L BUN 15 (7-17) mg/dL Creatinine 0.73 (0.52-1.04) mg/dL Glucose 99 (74-99) mg/dL Calcium 7.2 L (8.4-10.2) mg/dL Adrenal panel 01/11/22 Range/Units 05:47 Sodium 129 L (137-145) mmol/L Potassium 3.0 L (3.5-5.1) mmol/L Chloride 91 L (98-107) mmol/L Carbon Dioxide 32 H (22-30) mmol/L BUN 15 (7-17) mg/dL Creatinine 0.73 (0.52-1.04) mg/dL Glucose 99 (74-99) mg/dL Calcium 7.2 L (8.4-10.2) mg/dL Assessment and Plan Assessment: 76-year-old female with urinary retention, postvoid residual showed 400 mL, but upon Perez insertion only 200mL from the bladder was . Patient is having vague pain in the left lower quadrant with radiation the shoulder, this is very unusual to be related to the catheter insertion. The Perez is draining cloudy urine. From urology standpoint the catheter can be removed, the patient is refusing catheter removal due to the concern of developing repeat episode of retention. At this point he can be removed when no longer needed by the primary, or prior to discharge]
[2022-01-11 21:22] LABS: Glucose,Whole Blood 90 mg/dL (70-110)
[2022-01-11] MEDS: ATORVASTATIN 10 MG TAB PO SCH (23:19)
[2022-01-11] MEDS: SENNOSIDES 8.6 MG TAB PO SCH (23:19)
[2022-01-12] MEDS: SIMETHICONE 80 MG CHEWABLE PO SCH ×3 (05:55→20:17)
[2022-01-12] MEDS: LEVOTHYROXINE 75 MCG TAB PO SCH (05:55)
[2022-01-12] MEDS: ISOSORBIDE MONONITRATE ER 30 MG TAB.ER.24H PO SCH (05:55)
[2022-01-12 06:08] LABS: African American GFR (CKD) >90 (>60 ml/min/1.73 sqM); Anion Gap 4 mmol/L; Blood Urea Nitrogen 13 mg/dL (7-17); Calcium 7.8 mg/dL (8.4-10.2); Carbon Dioxide 32 mmol/L (22-30); Chloride 95 mmol/L (98-107); Glucose 90 mg/dL (74-99); Magnesium 1.8 mg/dL (1.6-2.3); Non-African American GFR(CKD) 86 (>60 ml/min/1.73 sqM); Potassium 3.6 mmol/L (3.5-5.1); Sodium 131 mmol/L (137-145)
[2022-01-12 07:13] LABS: Glucose,Whole Blood 89 mg/dL (70-110)
[2022-01-12] MEDS: MEROPENEM 1 GM in SODIUM CHLORIDE 0.9% 100 ML IVPB SCH ×2 (08:08→16:18)
[2022-01-12] MEDS: ASPIRIN 81 MG PO SCH (08:09)
[2022-01-12] MEDS: POTASSIUM CHLORIDE ER 10 MEQ TAB.ER.PRT PO SCH (08:09)
[2022-01-12] MEDS: PANTOPRAZOLE 40 MG TABLET PO SCH ×2 (08:09→16:18)
[2022-01-12] MEDS: SERTRALINE 25 MG TAB PO SCH (08:09)
[2022-01-12] MEDS: ALBUTEROL NEBULIZED 2.5 MG/3 ML INHALATION SCH ×4 (08:19→19:07)
[2022-01-12] MEDS: METOPROLOL TARTRATE 25 MG TAB PO SCH (09:24)
[2022-01-12 09:29] LABS: Anisocytosis Slight; HCT 29.9 % (34.0-46.0); HGB 9.7 gm/dL (11.4-16.0); MCH 28.7 pg (25.0-35.0); MCHC 32.5 g/dL (31.0-37.0); MCV 88.4 fL (80.0-100.0); Mean Platelet Volume 9.3; Platelet Count 292 k/uL (150-450); RBC 3.38 m/uL (3.80-5.40); RDW 17.7 % (11.5-15.5); WBC 10.6 k/uL (3.8-10.6)
[2022-01-12 12:04] LABS: Glucose,Whole Blood 100 mg/dL (70-110)
--- NOTE | 2022-01-12 14:31 | P.PN ---
Progress Note - Text Progress Note Date: 01/12/22 Patient seen and examined at bedside. She complains of fatigue. Does not want urinary catheter pulled out because of fears of reinsertion. BP 80s/50s. Urine culture + Klebsiella and Enterococcus. General: nontoxic, no distress, appears at stated age Derm: warm, dry Head: atraumatic, normocephalic, symmetric Eyes: EOMI, no lid lag, anicteric sclera Mouth: no lip lesion, mucus membranes moist Cardiovascular: S1S2 reg, no murmur Lungs: Decreased breath sounds bilateral, no rhonchi, no rales , no accessory muscle use Abdominal: soft, nontender to palpation, no guarding, no appreciable organomegaly Ext: no gross muscle atrophy, no edema, no contractures Neuro: no focal neuro deficits Psych: Alert, oriented, appropriate affect Assessment/Plan: Urinary tract infection, present on admission - meropenem D#3 due to hx of ESBL and increasing WBC - Urine culture ESBL Klebsiella and E. faecalis Hematuria with urinary retention - Urology following - Hemoglobin stable - We will DC Perez catheter tomorrow and attempt voiding trial Anemia - 2 g drop continue to monitor may be secondary to fluids - Appears to have hematuria - Follow CBC - Eliquis is on hold Hyponatremia secondary decreased oral intake - is off fluids and again sodium decreased - stop lasix - enocurage oral intake Diabetes mellitus type 2 - Not on medications at baseline and likely will not need any coverage - Follow blood sugars Hypotension - DC Cortez Vacadumarcelo Case discussed with window caser. [facility] unable to accept patient until Saturday due to staffing issues.
[2022-01-12 17:19] LABS: Glucose,Whole Blood 104 mg/dL (70-110)
[2022-01-12] MEDS: traMADol 50 MG TAB PO PRN (20:16)
[2022-01-12] MEDS: ATORVASTATIN 10 MG TAB PO SCH (20:17)
[2022-01-12 21:37] LABS: Glucose,Whole Blood 148 mg/dL (70-110)
[2022-01-13] MEDS: MEROPENEM 1 GM in SODIUM CHLORIDE 0.9% 100 ML IVPB SCH ×4 (00:08→23:27)
[2022-01-13] MEDS: SIMETHICONE 80 MG CHEWABLE PO SCH ×3 (05:50→21:06)
[2022-01-13] MEDS: LEVOTHYROXINE 75 MCG TAB PO SCH (05:50)
[2022-01-13 07:18] LABS: Glucose,Whole Blood 90 mg/dL (70-110)
[2022-01-13] MEDS: ALBUTEROL NEBULIZED 2.5 MG/3 ML INHALATION SCH ×4 (08:45→20:21)
[2022-01-13] MEDS: ASPIRIN 81 MG PO SCH (09:30)
[2022-01-13] MEDS: PANTOPRAZOLE 40 MG TABLET PO SCH ×2 (09:30→16:06)
[2022-01-13] MEDS: POTASSIUM CHLORIDE ER 10 MEQ TAB.ER.PRT PO SCH (09:30)
[2022-01-13] MEDS: SERTRALINE 25 MG TAB PO SCH (09:31)
--- NOTE | 2022-01-13 10:25 | P.PN ---
Subjective Progress Note Date: 01/13/22 No acute overnight events, continues to have some catheter discomfort. Urine is clear, Objective - Vital Signs Vital signs: Vital Signs Temp 97.4 F L 01/13/22 07:38 Pulse 70 01/13/22 07:38 Resp 18 01/13/22 07:38 BP 114/57 01/13/22 07:38 Pulse Ox 97 01/13/22 08:45 FiO2 Intake & Output 01/12/22 01/13/22 01/13/22 18:59 06:59 18:59 Output Total 575 Balance -575 Output: Urine 575 Other: Voiding Method Indwelling Catheter Indwelling Catheter - Labs CBC & Chem 7: 01/12/22 07:31 01/12/22 04:55 Labs: Abnormal Lab Results - Last 24 Hours (Table) 01/12/22 Range/Units 21:36 POC Glucose (mg/dL) 148 H (70-110) mg/dL Microbiology - Last 24 Hours (Table) 01/09/22 16:24 Blood Culture - Preliminary Blood No Growth after 72 hours 01/09/22 16:24 Blood Culture - Preliminary Blood No Growth after 72 hours 01/09/22 11:51 Urine Culture - Final Urine,Voided Klebsiella pneumoniae Enterococcus faecalis Assessment and Plan Assessment: 76-year-old female with urinary retention, postvoid residual showed 400 mL, but upon Perez insertion only 200mL from the bladder was . Patient is having vague pain in the left lower quadrant with radiation the shoulder, this is very unusual to be related to the catheter insertion. -Perez catheter can be removed prior to day of discharge, if residuals less than 400 then no further intervention is needed ]
[2022-01-13 11:06] LABS: African American GFR (CKD) >90 (>60 ml/min/1.73 sqM); Anion Gap 4 mmol/L; Blood Urea Nitrogen 12 mg/dL (7-17); Calcium 7.6 mg/dL (8.4-10.2); Carbon Dioxide 32 mmol/L (22-30); Chloride 96 mmol/L (98-107); Glucose 86 mg/dL (74-99); Non-African American GFR(CKD) >90 (>60 ml/min/1.73 sqM); Potassium 4.1 mmol/L (3.5-5.1); Sodium 132 mmol/L (137-145)
[2022-01-13] MEDS: traMADol 50 MG TAB PO PRN ×2 (12:26→17:45)
[2022-01-13 12:38] LABS: Glucose,Whole Blood 117 mg/dL (70-110)
[2022-01-13 13:32] LABS: Anisocytosis Slight; HCT 31.9 % (34.0-46.0); HGB 9.7 gm/dL (11.4-16.0); Hypochromasia Slight; MCH 27.3 pg (25.0-35.0); MCHC 30.5 g/dL (31.0-37.0); MCV 89.7 fL (80.0-100.0); Mean Platelet Volume 8.9; Platelet Count 335 k/uL (150-450); RBC 3.55 m/uL (3.80-5.40); RDW 17.2 % (11.5-15.5); WBC 10.6 k/uL (3.8-10.6)
--- NOTE | 2022-01-13 13:44 | P.PN ---
Subjective Progress Note Date: 01/13/22 Patient seen and examined at bedside. She has no complaints today. Does not want urinary catheter pulled out because of fears of reinsertion. Urine culture + Klebsiella and Enterococcus. General: nontoxic, no distress, appears at stated age Derm: warm, dry Head: atraumatic, normocephalic, symmetric Eyes: EOMI, no lid lag, anicteric sclera Mouth: no lip lesion, mucus membranes moist Cardiovascular: S1S2 reg, no murmur Lungs: Decreased breath sounds bilateral, no rhonchi, no rales , no accessory muscle use Abdominal: soft, nontender to palpation, no guarding, no appreciable organomegaly Ext: no gross muscle atrophy, no edema, no contractures Neuro: no focal neuro deficits Psych: Alert, oriented, appropriate affect Assessment/Plan: Urinary tract infection, present on admission - meropenem D#4 due to hx of ESBL and increasing WBC - Urine culture ESBL Klebsiella and E. faecalis Hematuria with urinary retention - Urology following - Hemoglobin stable - We will DC Perez catheter Saturday and attempt voiding trial Anemia - 2 g drop continue to monitor may be secondary to fluids - Appears to have hematuria - Follow CBC - Eliquis is on hold Hyponatremia secondary decreased oral intake - is off fluids and again sodium decreased - stop lasix - enocurage oral intake Diabetes mellitus type 2 - Not on medications at baseline and likely will not need any coverage - Follow blood sugars Hypertension - Low BP - DC Lopressor, Imdur - Monitor Case discussed with clinical case manager. [facility] unable to accept patient until Saturday due to staffing issues. Objective - Vital Signs Vital signs: Vital Signs Temp 97.4 F L 01/13/22 07:38 Pulse 79 01/13/22 11:59 Resp 18 01/13/22 07:38 BP 114/57 01/13/22 07:38 Pulse Ox 97 01/13/22 08:45 FiO2 Intake & Output 01/12/22 01/13/22 01/13/22 18:59 06:59 18:59 Output Total 575 Balance -575 Output: Urine 575 Other: Voiding Method Indwelling Catheter Indwelling Catheter Indwelling Catheter - Labs CBC & Chem 7: 01/13/22 09:35 01/13/22 09:35 Labs: Abnormal Lab Results - Last 24 Hours (Table) 01/12/22 01/13/2222 Range/Units 21:36 09:35 09:35 RBC 3.55 L (3.80-5.40) m/uL Hgb 9.7 L (11.4-16.0) gm/dL Hct 31.9 L (34.0-46.0) % MCHC 30.5 L (31.0-37.0) g/dL RDW 17.2 H (11.5-15.5) % Sodium 132 L (137-145) mmol/L Chloride 96 L (98-107) mmol/L Carbon Dioxide 32 H (22-30) mmol/L POC Glucose (mg/dL) 148 H (70-110) mg/dL Calcium 7.6 L (8.4-10.2) mg/dL 01/13/22 Range/Units 12:25 RBC (3.80-5.40) m/uL Hgb (11.4-16.0) gm/dL Hct (34.0-46.0) % MCHC (31.0-37.0) g/dL RDW (11.5-15.5) % Sodium (137-145) mmol/L Chloride (98-107) mmol/L Carbon Dioxide (22-30) mmol/L POC Glucose (mg/dL) 117 H (70-110) mg/dL Calcium (8.4-10.2) mg/dL Microbiology - Last 24 Hours (Table) 01/09/22 16:24 Blood Culture - Preliminary Blood No Growth after 72 hours 01/09/22 16:24 Blood Culture - Preliminary Blood No Growth after 72 hours 01/09/22 11:51 Urine Culture - Final Urine,Voided Klebsiella pneumoniae Enterococcus faecalis
[2022-01-13 17:04] LABS: Glucose,Whole Blood 101 mg/dL (70-110)
[2022-01-13] MEDS: ATORVASTATIN 10 MG TAB PO SCH (19:54)
[2022-01-13] MEDS: SENNOSIDES 8.6 MG TAB PO SCH (19:54)
[2022-01-13 20:47] LABS: Glucose,Whole Blood 107 mg/dL (70-110)
[2022-01-14] MEDS: LEVOTHYROXINE 75 MCG TAB PO SCH (06:11)
[2022-01-14] MEDS: SIMETHICONE 80 MG CHEWABLE PO SCH ×3 (06:12→20:36)
[2022-01-14] MEDS: traMADol 50 MG TAB PO PRN ×3 (06:15→22:38)
[2022-01-14 07:03] LABS: Glucose,Whole Blood 90 mg/dL (70-110)
[2022-01-14] MEDS: ALBUTEROL NEBULIZED 2.5 MG/3 ML INHALATION SCH ×4 (08:48→20:13)
[2022-01-14] MEDS: MEROPENEM 1 GM in SODIUM CHLORIDE 0.9% 100 ML IVPB SCH ×3 (08:58→23:50)
[2022-01-14] MEDS: PANTOPRAZOLE 40 MG TABLET PO SCH ×2 (08:59→16:30)
[2022-01-14] MEDS: POTASSIUM CHLORIDE ER 10 MEQ TAB.ER.PRT PO SCH (08:59)
[2022-01-14] MEDS: ASPIRIN 81 MG PO SCH (08:59)
[2022-01-14] MEDS: SERTRALINE 25 MG TAB PO SCH (08:59)
[2022-01-14 12:34] LABS: Glucose,Whole Blood 84 mg/dL (70-110)
--- NOTE | 2022-01-14 15:52 | P.PN ---
Subjective Progress Note Date: 01/14/22 Principal diagnosis: Weakness Patient seen and examined. She has no new complaints no nausea vomiting fever chills chest pain or short spreadsheets she is awaiting discharge to rehab facility that is scheduled for tomorrow Objective - Vital Signs Vital signs: Vital Signs Temp 97.6 F 01/14/22 13:55 Pulse 68 01/14/22 13:55 Resp 18 01/14/22 13:55 BP 95/43 01/14/22 13:55 Pulse Ox 97 01/14/22 13:55 FiO2 Intake & Output 01/13/22 01/14/22 01/14/22 18:59 06:59 18:59 Intake Total 118 240 Output Total 400 400 Balance -282 -400 240 Intake: Oral 118 240 Output: Urine 400 400 Other: Voiding Method Indwelling Catheter Indwelling Catheter - Exam General: nontoxic, no distress, appears at stated age Derm: warm, dry Head: atraumatic, normocephalic, symmetric Eyes: EOMI, no lid lag, anicteric sclera Mouth: no lip lesion, mucus membranes moist Cardiovascular: S1S2 reg, no murmur Lungs: Decreased breath sounds bilateral, no rhonchi, no rales , no accessory muscle use Abdominal: soft, nontender to palpation, no guarding, no appreciable organomegaly Ext: no gross muscle atrophy, no edema, no contractures Neuro: no focal neuro deficits Psych: Alert, oriented, appropriate affect - Labs CBC & Chem 7: 01/13/22 09:35 01/13/22 09:35 Labs: Microbiology - Last 24 Hours (Table) 01/09/22 16:24 Blood Culture - Preliminary Blood No Growth after 96 hours 01/09/22 16:24 Blood Culture - Preliminary Blood No Growth after 96 hours Assessment and Plan (1) UTI (urinary tract infection) Current Visit: Yes Status: Acute Code(s): N39.0 - URINARY TRACT INFECTION, SITE NOT SPECIFIED SNOMED Code(s): 74285557 Plan: Urinary tract infection, present on admission - meropenem D#5 due to hx of ESBL - Urine culture ESBL Klebsiella and E. faecalis Hematuria with urinary retention - Urology following - Hemoglobin stable - We will DC Rios catheter Saturday and attempt voiding trial Anemia - No labs today. We will check a CBC in the morning -No further gross hematuria observed in rios - Eliquis is on hold Hyponatremia secondary decreased oral intake - is off fluids and again sodium decreased - stop lasix - enocurage oral intake Diabetes mellitus type 2 - Not on medications at baseline and likely will not need any coverage - Blood sugars have been stable Hypertension Blood pressure has been low here in the hospital. Continue to monitor off antihypertensive medications Disposition: Patient is an anticipated discharge to rehab facility on 01/15/2022
[2022-01-14 16:51] LABS: Glucose,Whole Blood 88 mg/dL (70-110)
[2022-01-14] MEDS: SENNOSIDES 8.6 MG TAB PO SCH (20:36)
[2022-01-14] MEDS: ATORVASTATIN 10 MG TAB PO SCH (20:36)
[2022-01-14 20:40] LABS: Glucose,Whole Blood 87 mg/dL (70-110)
[2022-01-15] MEDS: SIMETHICONE 80 MG CHEWABLE PO SCH ×3 (06:28→22:38)
[2022-01-15] MEDS: traMADol 50 MG TAB PO PRN ×3 (06:28→22:36)
[2022-01-15] MEDS: LEVOTHYROXINE 75 MCG TAB PO SCH (06:28)
[2022-01-15 07:21] LABS: Glucose,Whole Blood 77 mg/dL (70-110)
[2022-01-15] MEDS: ALBUTEROL NEBULIZED 2.5 MG/3 ML INHALATION SCH ×4 (07:38→19:41)
[2022-01-15] MEDS: SERTRALINE 25 MG TAB PO SCH (09:28)
[2022-01-15] MEDS: POTASSIUM CHLORIDE ER 10 MEQ TAB.ER.PRT PO SCH (09:28)
[2022-01-15] MEDS: ASPIRIN 81 MG PO SCH (09:28)
[2022-01-15] MEDS: PANTOPRAZOLE 40 MG TABLET PO SCH ×2 (09:28→16:13)
[2022-01-15] MEDS: MEROPENEM 1 GM in SODIUM CHLORIDE 0.9% 100 ML IVPB SCH ×3 (09:34→23:43)
[2022-01-15 12:25] LABS: Glucose,Whole Blood 97 mg/dL (70-110)
--- NOTE | 2022-01-15 15:56 | P.PN ---
Subjective Progress Note Date: 01/15/22 Principal diagnosis: Weakness Patient seen and examined today. She had Rios cath removed this morning and currently awaiting for her to urinate on her own. Objective - Vital Signs Vital signs: Vital Signs Temp 97.5 F L 01/15/22 08:00 Pulse 70 01/15/22 15:36 Resp 18 01/15/22 08:00 BP 91/53 01/15/22 08:00 Pulse Ox 97 01/15/22 08:00 FiO2 Intake & Output 01/14/22 01/15/22 01/15/22 18:59 06:59 18:59 Intake Total 240 Output Total 200 400 Balance 40 -400 Intake: Oral 240 Output: Urine 200 400 Other: Voiding Method Indwelling Catheter Incontinent - Exam General: nontoxic, no distress, appears at stated age Derm: warm, dry Head: atraumatic, normocephalic, symmetric Eyes: EOMI, no lid lag, anicteric sclera Mouth: no lip lesion, mucus membranes moist Cardiovascular: S1S2 reg, no murmur Lungs: Decreased breath sounds bilateral, no rhonchi, no rales , no accessory muscle use Abdominal: soft, nontender to palpation, no guarding, no appreciable organomegaly Ext: no gross muscle atrophy, no edema, no contractures Neuro: no focal neuro deficits Psych: Alert, oriented, appropriate affect - Labs CBC & Chem 7: 01/13/22 09:35 01/13/22 09:35 Labs: Microbiology - Last 24 Hours (Table) 01/09/22 16:24 Blood Culture - Preliminary Blood No Growth after 120 hours 01/09/22 16:24 Blood Culture - Preliminary Blood No Growth after 120 hours Assessment and Plan (1) UTI (urinary tract infection) Current Visit: Yes Status: Acute Code(s): N39.0 - URINARY TRACT INFECTION, SITE NOT SPECIFIED SNOMED Code(s): 99603575 Plan: Urinary tract infection, present on admission - meropenem D#6 due to hx of ESBL plan for completion of 7-10 days of IV antibiotics - Urine culture ESBL Klebsiella and E. faecalis Hematuria with urinary retention - Urology following - Hemoglobin stable - We will DC Rios catheter Saturday and attempt voiding trial Anemia - No labs today. -No further gross hematuria observed in rios - Eliquis is on hold Hyponatremia secondary decreased oral intake - is off fluids and again sodium decreased - stop lasix - enocurage oral intake Diabetes mellitus type 2 - Not on medications at baseline and likely will not need any coverage - Blood sugars have been stable Hypertension Blood pressure has been low here in the hospital. Continue to monitor off antihypertensive medications Disposition: Patient's discharge held today secondary to patient requiring trial void to be performed. She still has not able to urinate and therefore patient may need to have for catheter reinserted. Per urology's recommendation patient to have Rios catheter inserted if bladder scan greater than 400.
[2022-01-15] MEDS: FUROSEMIDE 40 MG TAB PO SCH (16:13)
[2022-01-15 17:14] LABS: Glucose,Whole Blood 102 mg/dL (70-110)
[2022-01-15 22:05] LABS: Glucose,Whole Blood 100 mg/dL (70-110)
[2022-01-15] MEDS: SENNOSIDES 8.6 MG TAB PO SCH (22:37)
[2022-01-15] MEDS: APIXABAN 2.5 MG TABLET PO SCH (22:37)
[2022-01-15] MEDS: ATORVASTATIN 10 MG TAB PO SCH (22:38)
[2022-01-16] MEDS: SIMETHICONE 80 MG CHEWABLE PO SCH ×3 (04:54→21:03)
[2022-01-16] MEDS: LEVOTHYROXINE 75 MCG TAB PO SCH (04:54)
[2022-01-16 07:27] LABS: Glucose,Whole Blood 92 mg/dL (70-110)
[2022-01-16 07:36] VITALS: RESP 18
[2022-01-16 08:54] LABS: Basophils # (A) 0.04 X 10*3/uL (0.00-0.10); Basophils % (A) 0.6 %; Eosinophils # (A) 0.26 X 10*3/uL (0.04-0.35); HCT 32.4 % (37.2-46.3); HGB 9.8 g/dL (12.0-15.0); Immature Grans, Automated 0.6 %; Lymphocytes # (A) 1.21 X 10*3/uL (0.90-5.00); Lymphocytes % (A) 18.8 %; MCH 27.7 pg (27.0-32.0); MCHC 30.2 g/dL (32.0-37.0); MCV 91.5 fL (80.0-97.0); Mean Platelet Volume 9.1 fL (9.5-12.2); Monocytes # (A) 0.61 X 10*3/uL (0.20-1.00); Monocytes % (A) 9.5 %; NRBC Per 100 WBC 0 /100 WBCS (0.0-0.0); Neutrophils # (A) 4.27 X 10*3/uL (1.80-7.70); Neutrophils % (A) 66.5 %; Platelet Count 390 X 10*3/uL (140-440); RBC 3.54 X 10*6/uL (4.10-5.20); RDW 17.7 % (11.5-14.5); WBC 6.43 X 10*3/uL (4.50-10.00)
[2022-01-16] MEDS: ALBUTEROL NEBULIZED 2.5 MG/3 ML INHALATION SCH ×4 (08:57→20:20)
[2022-01-16] MEDS: MEROPENEM 1 GM in SODIUM CHLORIDE 0.9% 100 ML IVPB SCH ×2 (08:57→16:21)
[2022-01-16] MEDS: POTASSIUM CHLORIDE ER 10 MEQ TAB.ER.PRT PO SCH (08:59)
[2022-01-16] MEDS: PANTOPRAZOLE 40 MG TABLET PO SCH ×2 (08:59→16:25)
[2022-01-16] MEDS: FUROSEMIDE 40 MG TAB PO SCH (08:59)
[2022-01-16] MEDS: APIXABAN 2.5 MG TABLET PO SCH ×2 (08:59→21:02)
[2022-01-16] MEDS: SERTRALINE 25 MG TAB PO SCH (08:59)
[2022-01-16] MEDS: ASPIRIN 81 MG PO SCH (08:59)
--- NOTE | 2022-01-16 09:24 | CDI ---
Documentation Clarification Form Date: 01/16/2022 09:11:24 AM From: Rosa Fraser CCS, CCDS Admit Date: 01/11/2022 10:11:00 AM Patient Name: Crissy Goldsmith Visit Number: [id number] Discharge Date: ATTENTION: The Clinical Documentation Specialists (CDI) and [facility] Coding Staff appreciate your assistance in clarifying documentation. Please respond to the clarification below the line at the bottom and electronically sign. The CDI & [facility] Coding staff will review the response and follow-up if needed. Please note: Queries are made part of the Legal Health Record. If you have any questions, please contact the author of this message via ITS. Dr. Susan Vasquez: Your patient has the documented diagnosis of Chronic Congestive Heart Failure in the 01/09 H/P and in subsequent Progress Notes. Additional information regarding the Type of CHF is requested. History/Risk Factors per the 01/09 H/P: CHF, DM, Hypertension, Prior Pulmonary embolism, Sick Sinus Syndrome, Hypokalemia in the past, prior ESBL UTI, Asthma, Hypothyroidism. Clinical Indicators: Presented to the ED on 01/09 from a long-term via EMS with low Potassium, complaining of lower abdominal pain and some urinary symptoms: dysuria. Admit with Hypokalemia, UTI 01/09 VS: T 97.7, P 67, R 20, BP 115/81, PO 90 RA - 94 2Lnc, BMI: 30.6 01/09 LAB: WBC 10.9, Hgb 11.3, Neut 8.7; Na 131, K 2.4, Chl 85, CO2 39, glucose 108, Calcium 7.2, Total Protein 5.2, Albumin 2.5 BNP not done. No CXR. Most recent ECHO 11/10/2021: EF 50-55%, No regurgitation, No stenosis, no effusions. Normal left ventricular size & function. Suboptimal study. Treatment 01/09: O2 2Lnc, po K-Dur 40 meq x1, IV Rocephin 1,000 mg x2, IV Na Chl 1,000 mls @ 75 mls/hr q13H, IV Kcl 100 mls @50 mls/hr x1. Home meds. Home meds include INH Albuterol, Lopressor BID, Eliquis 5 mg BID, Lasix 40 mg Daily. In your professional opinion, can you please clarify the Type of CHF if known? [ ] Chronic Diastolic Heart Failure [ ] Other Chronic Heart Failure, please specify: [ ] Unable to determine (Template Last Revised: June 2020) Chronic diastolic CHF MTDD
[2022-01-16 12:17] LABS: Glucose,Whole Blood 91 mg/dL (70-110)
[2022-01-16 12:44] VITALS: BMI 30.6
--- NOTE | 2022-01-16 13:26 | P.DS ---
Providers Date of admission: 01/11/22 10:11 Attending physician: Holly Craven DO Consults: 01/11/22 12:07 Consult Physician Routine Consulting Provider: Jeremi Rose Consult Reason/Comments: urinary retention, only will allow urologist to place rios Do you want consulting provider notified?: Yes 01/11/22 17:57 Consult Physician Urgent Consulting Provider: Jeremi Rose Consult Reason/Comments: catheter insertion/catheter management Do you want consulting provider notified?: Yes Primary care physician: Avery Prakash - Discharge Diagnosis(es) (1) UTI (urinary tract infection) Current Visit: Yes Status: Acute Hospital Course: Patient is 76-year-old female admitted to the hospital with urinary symptoms di fficulty voiding with urinary retention. Patient was diagnosed with a urinary tract infection and urinary retention. She had fully catheter inserted and urology was consulted. Patient was treated with IV meropenem for history of ESBL and urine culture showing ESBL Klebsiella and Enterococcus faecalis. Patient completed a course of antibiotics. Patient was evaluated by physical and occupational therapy and recommendation is subcu rehab. On day of discharge patient did have a trial void performed. Patient does have chronic urinary retention with overflow incontinence. Patient was urinating without difficulties on day of discharge. Discharge diagnosis: Chronic CHF UTI Hematuria Anemia Diabetes mellitus type 2 Hypertension Plan - Discharge Summary Discharge Rx Participant: No New Discharge Prescriptions: Continue Acetaminophen [Tylenol] 650 mg PO Q6H PRN PRN Reason: Pain Aspirin 81 mg PO DAILY tab Metoprolol Tartrate [Lopressor] 25 mg PO BID tab ondansetron HCL [Zofran] 8 mg PO Q8HR PRN PRN Reason: Nausea And Vomiting Clotrimazole Cream [Lotrimin Cream] 1 applic TOPICAL BID Acetaminophen Tab [Tylenol] 650 mg PO Q4H PRN PRN Reason: Fever Lactulose 10 - 20 gm PO BID Ensure 237 ml PO BID@0900,1700 Isosorbide Mononitrate ER [Imdur] 30 mg PO DAILY@0600 Atorvastatin [Lipitor] 10 mg PO HS Sennosides [Senokot] 8.6 mg PO HS Melatonin 6 mg PO HS PRN PRN Reason: Insomnia Albuterol Nebulized [Ventolin Nebulized] 2.5 mg INHALATION RT-Q6H Simethicone [Gas-X] 125 mg PO TID@0600,1400,2200 Pantoprazole Sodium [Protonix] 40 mg PO BID Apixaban [Eliquis] 5 mg PO BID Sertraline [Zoloft] 25 mg PO DAILY Potassium Chloride [Klor-Con M10] 10 meq PO DAILY Levothyroxine Sodium [Synthroid] 75 mcg PO DAILY@0600 Furosemide [Lasix] 40 mg PO DAILY Discharge Medication List Acetaminophen [Tylenol] 650 mg PO Q6H PRN 11/08/21 [History] Melatonin 6 mg PO HS PRN 11/08/21 [History] Sennosides [Senokot] 8.6 mg PO HS 11/08/21 [History] Aspirin 81 mg PO DAILY tab 11/23/21 [Rx] Metoprolol Tartrate [Lopressor] 25 mg PO BID tab 11/23/21 [Rx] Acetaminophen Tab [Tylenol] 650 mg PO Q4H PRN 01/09/22 [History] Albuterol Nebulized [Ventolin Nebulized] 2.5 mg INHALATION RT-Q6H 01/09/22 [History] Apixaban [Eliquis] 5 mg PO BID 01/09/22 [History] Atorvastatin [Lipitor] 10 mg PO HS 01/09/22 [History] Clotrimazole Cream [Lotrimin Cream] 1 applic TOPICAL BID 01/09/22 [History] Ensure 237 ml PO BID@0900,1700 01/09/22 [History] Furosemide [Lasix] 40 mg PO DAILY 01/09/22 [History] Isosorbide Mononitrate ER [Imdur] 30 mg PO DAILY@0600 01/09/22 [History] Lactulose 10 - 20 gm PO BID 01/09/22 [History] Levothyroxine Sodium [Synthroid] 75 mcg PO DAILY@0600 01/09/22 [History] Pantoprazole Sodium [Protonix] 40 mg PO BID 01/09/22 [History] Potassium Chloride [Klor-Con M10] 10 meq PO DAILY 01/09/22 [History] Sertraline [Zoloft] 25 mg PO DAILY 01/09/22 [History] Simethicone [Gas-X] 125 mg PO TID@0600,1400,2200 01/09/22 [History] ondansetron HCL [Zofran] 8 mg PO Q8HR PRN 01/09/22 [History] Follow up Appointment(s)/Referral(s): Avery Prakash MD [Primary Care Provider] - 1-2 days Discharge Disposition: TRANSFER TO SNF/ECF
[2022-01-16 14:27] VITALS: BP 123/75; TEMP 98.1
[2022-01-16 17:21] LABS: Glucose,Whole Blood 92 mg/dL (70-110)
[2022-01-16 20:31] VITALS: PULSE 76
[2022-01-16] MEDS: ATORVASTATIN 10 MG TAB PO SCH (21:02)
[2022-01-16] MEDS: SENNOSIDES 8.6 MG TAB PO SCH (21:03)
[2022-01-16] MEDS: traMADol 50 MG TAB PO PRN (21:05)
== END 2022-01-16 21:25 | DRG 690 ==
LOC: EC 11:30 → 5NMEDONC 15:12 → 6NMEDSUR 01-10 04:31 → OBSVTOIN 01-11 10:11
PROVIDERS: ADMIT Internal Medicine; ATTEND Internal Medicine
DX: N39.0 Urinary tract infection, site not specified (principal); E87.1 Hypo-osmolality and hyponatremia; I50.32 Chronic diastolic (congestive) heart failure; Z16.12 Extended spectrum beta lactamase (ESBL) resistance; E11.9 Type 2 diabetes mellitus without complications; I11.0 Hypertensive heart disease with heart failure; B95.2 Enterococcus as the cause of diseases classified elsewhere; B96.1 Klebsiella pneumoniae [K. pneumoniae] as the cause of diseases classified elsewhere; I48.91 Unspecified atrial fibrillation; E87.6 Hypokalemia; T50.3X5A Adverse effect of electrolytic, caloric and water-balance agents, initial encounter; I95.9 Hypotension, unspecified; R32 Unspecified urinary incontinence; R15.9 Full incontinence of feces; R33.8 Other retention of urine; M25.512 Pain in left shoulder; R79.89 Other specified abnormal findings of blood chemistry; E03.9 Hypothyroidism, unspecified; R33.9 Retention of urine, unspecified; D64.9 Anemia, unspecified; R31.9 Hematuria, unspecified; E83.42 Hypomagnesemia; J45.909 Unspecified asthma, uncomplicated; Z88.5 Allergy status to narcotic agent; Z88.0 Allergy status to penicillin; Z79.01 Long term (current) use of anticoagulants; Z79.899 Other long term (current) drug therapy; Z79.890 Hormone replacement therapy; Z79.82 Long term (current) use of aspirin; Z86.711 Personal history of pulmonary embolism; Z87.440 Personal history of urinary (tract) infections; Z86.19 Personal history of other infectious and parasitic diseases; Z90.710 Acquired absence of both cervix and uterus; Z90.49 Acquired absence of other specified parts of digestive tract
CPT/HCPCS: 36415; 51798; 80048; 80053; 81001; 82150; 83690; 83735; 85025; 85027; 87040; 87077; 87086; 87186; 93005; 94640; 94760; 96365; 96366; 96375; 99285

== ENCOUNTER 2022-02-03 15:02 | Emergency (ER) | payer MEDICARE ==
[2022-02-03 15:13] VITALS: RESP 18; TEMP 97.9
--- NOTE | 2022-02-03 15:13 | ED ---
General Adult HPI - General Chief complaint: GI Bleed Stated complaint: GI Bleed Time Seen by Provider: 02/03/22 15:08 Source: patient, EMS Mode of arrival: EMS Limitations: no limitations - History of Present Illness Initial comments: Patient presents to the ED by ambulance from her halfway for evaluation. Per patient, her halfway staff normally changes her diaper after she stools, and she states that they reported finding "brick red" colored stool in her diaper just a couple of hours ago today. Patient states that this is her first and only episode of possible GI bleeding today. Patient is on Eliquis. Patient denies having any symptoms at this time. Patient denies having any pain, fever or chills, headache, focal numbness/weakness/neuro deficit, chest pain or pressure, dyspnea, cough or cold symptoms, palpitations, dizziness/we akness, abdominal pain, nausea/vomiting/diarrhea/constipation, rectal pain, dysuria/hematuria/urinary frequency/urinary symptoms, or any other symptoms or complaints. - Related Data Home Medications Medication Instructions Recorded Confirmed Acetaminophen [Tylenol] 650 mg PO Q6H PRN 11/08/21 01/09/22 Melatonin 6 mg PO HS PRN 11/08/21 01/09/22 Sennosides [Senokot] 8.6 mg PO HS 11/08/21 01/09/22 Acetaminophen Tab [Tylenol] 650 mg PO Q4H PRN 01/09/22 01/09/22 Albuterol Nebulized [Ventolin 2.5 mg INHALATION RT-Q6H 01/09/22 01/09/22 Nebulized] Apixaban [Eliquis] 5 mg PO BID 01/09/22 01/09/22 Atorvastatin [Lipitor] 10 mg PO HS 01/09/22 01/09/22 Clotrimazole Cream [Lotrimin Cream] 1 applic TOPICAL BID 01/09/22 01/09/22 Ensure 237 ml PO BID@0900,1700 01/09/22 01/09/22 Furosemide [Lasix] 40 mg PO DAILY 01/09/22 01/09/22 Isosorbide Mononitrate ER [Imdur] 30 mg PO DAILY@0600 01/09/22 01/09/22 Lactulose 10 - 20 gm PO BID 01/09/22 01/09/22 Levothyroxine Sodium [Synthroid] 75 mcg PO DAILY@0600 01/09/22 01/09/22 Pantoprazole Sodium [Protonix] 40 mg PO BID 01/09/22 01/09/22 Potassium Chloride [Klor-Con M10] 10 meq PO DAILY 01/09/22 01/09/22 Sertraline [Zoloft] 25 mg PO DAILY 01/09/22 01/09/22 Simethicone [Gas-X] 125 mg PO TID@0600,1400,2200 01/09/22 01/09/22 ondansetron HCL [Zofran] 8 mg PO Q8HR PRN 01/09/22 01/09/22 Previous Rx's Medication Instructions Recorded Aspirin 81 mg PO DAILY tab 11/23/21 Metoprolol Tartrate [Lopressor] 25 mg PO BID tab 11/23/21 traMADol HCl [Ultram] 50 mg PO QID PRN #3 tab 01/16/22 Allergies Allergy/AdvReac Type Severity Reaction Status Date / Time Penicillins Allergy Itching Verified 01/09/22 12:40 hydromorphone [From Dilaudid] AdvReac Confusion Verified 01/09/22 12:40 Review of Systems ROS Statement: Those systems with pertinent positive or pertinent negative responses have been documented in the HPI. ROS Other: All systems not noted in ROS Statement are negative. Past Medical History Past Medical History: Asthma, Heart Failure, Diabetes Mellitus, Hypertension, Pulmonary Embolus (PE), Respiratory Disorder, Thyroid Disorder History of Any Multi-Drug Resistant Organisms: ESBL Date of last positivie culture/infection: 01/09/22 ESBL MDRO Source:: Urine Past Surgical History: Appendectomy, Cholecystectomy, Hysterectomy, Uterine Ablation Additional Past Surgical History / Comment(s): Bladder lift Past Anesthesia/Blood Transfusion Reactions: No Reported Reaction Past Psychological History: No Psychological Hx Reported Smoking Status: Never smoker Past Alcohol Use History: Rare Past Drug Use History: None Reported - Past Family History Father Additional Family Medical History / Comment(s): no known heart disease General Exam Limitations: no limitations Head exam: Present: atraumatic, normocephalic Eye exam: Present: normal appearance, EOMI ENT exam: Present: mucous membranes moist Neck exam: Present: other (Trachea is in midline) Respiratory exam: Present: normal lung sounds bilaterally. Absent: respiratory distress, wheezes, rales, rhonchi, stridor Cardiovascular Exam: Present: regular rate, normal rhythm, normal heart sounds, other (Normal radial pulses bilaterally) GI/Abdominal exam: Present: soft, normal bowel sounds. Absent: distended, tenderness, guarding Rectal exam: Present: normal rectal tone, other (Brewster-colored stool was retrieved from rectal vault on digital exam and sent for Hemoccult testing). Absent: hemorrhoids, tenderness Extremities exam: Absent: tenderness, pedal edema, calf tenderness Neurological exam: Present: alert, oriented X3 Psychiatric exam: Present: normal affect, normal mood Skin exam: Present: warm, dry, normal color Course Vital Signs 02/03/22 15:09 Temperature 97.9 F Pulse Rate 69 Respiratory 18 Rate Blood Pressure 120/60 O2 Sat by Pulse 100 Oximetry - Reevaluation(s) Reevaluation #1: 02/03/22 16:56 Case, H&P and test results were discussed with Dr. Almendarez (on-call general surgeon). He states that he does not do endoscopies/colonoscopies, and given we have no GI coverage here this weekend, he recommends transferring the patient to another facility if she requires evaluation for GI bleeding. He has no further recommendations at this time. 02/03/22 17:18 Case, H&P and test results were discussed with Dr. Davis (ED physician at [facility]). She accepts ambulance transfer to the [facility] ED. She has no further recommendations at this time. 02/03/22 17:22 Patient remains alert and breathing comfortably. Patient continues to deny having any symptoms while in the ED. Patient remained hemodynamically stable in the ED. Patient's hemoglobin is low at 10.4, but stable when compared to her recent prior hemoglobin levels. Patient is aware of her test results and my discussions as above, and she agrees with ambulance transfer to the [facility] ED at this time. EKG Findings - EKG Comments: EKG Findings:: Normal sinus rhythm, ventricular rate of 61 bpm, no ectopy, normal AL interval, nonspecific intraventricular conduction delay, QRS duration of 128 ms, normal QT interval, normal axis, no significant change when compared to 01/09/2022 EKG Medical Decision Making - Medical Decision Making Patient's hemoglobin is stable, and she is hemodynamically stable, but given she is on Eliquis anticoagulation and has Hemoccult positive stool, I feel that she should be admitted to the hospital for observation/monitoring and GI evaluation. Given there is no GI coverage here at our hospital this weekend, patient will be transferred to the [facility] ED at this time. Transfer has been accepted by Dr. Davis (ED physician at [facility]). Patient has been treated with IV Protonix and IV fluids in the ED. - Lab Data Result diagrams: 02/03/22 15:29 02/03/22 15:29 Lab Results 02/03/22 02/03/22 02/03/22 Range/Units 15:20 15:29 15:29 WBC 13.6 H (3.8-10.6) k/uL RBC 3.59 L (3.80-5.40) m/uL Hgb 10.4 L (11.4-16.0) gm/dL Hct 33.2 L (34.0-46.0) % MCV 92.5 (80.0-100.0) fL MCH 29.0 (25.0-35.0) pg MCHC 31.4 (31.0-37.0) g/dL RDW 17.4 H (11.5-15.5) % Plt Count 668 H (150-450) k/uL MPV 7.9 Neutrophils % 78 % Lymphocytes % 12 % Monocytes % 6 % Eosinophils % 2 % Basophils % 0 % Neutrophils # 10.6 H (1.3-7.7) k/uL Lymphocytes # 1.7 (1.0-4.8) k/uL Monocytes # 0.8 (0-1.0) k/uL Eosinophils # 0.2 (0-0.7) k/uL Basophils # 0.1 (0-0.2) k/uL Hypochromasia Slight Anisocytosis Slight PT 12.6 H (9.0-12.0) sec INR 1.2 H (<1.2) APTT 31.9 H (22.0-30.0) sec Sodium (137-145) mmol/L Potassium (3.5-5.1) mmol/L Chloride (98-107) mmol/L Carbon Dioxide (22-30) mmol/L Anion Gap mmol/L BUN (7-17) mg/dL Creatinine (0.52-1.04) mg/dL Est GFR (CKD-EPI)AfAm (>60 ml/min/1.73 sqM) Est GFR (CKD-EPI)NonAf (>60 ml/min/1.73 sqM) Glucose (74-99) mg/dL Calcium (8.4-10.2) mg/dL Total Bilirubin (0.2-1.3) mg/dL AST (14-36) U/L ALT (4-34) U/L Alkaline Phosphatase (38-126) U/L Troponin I (0.000-0.034) ng/mL Total Protein (6.3-8.2) g/dL Albumin (3.5-5.0) g/dL Lipase (23-300) U/L Stool Occult Blood (Negative) Blood Type O Positive Blood Type Confirm Blood Type Recheck No Previous Record Bld Type Recheck Status CABO Indicated Antibody Screen NEGATIVE Spec Expiration Date 02/06/2022 - 231902/03/22 02/03/22 02/03/22 Range/Units 15:29 15:29 15:29 WBC (3.8-10.6) k/uL RBC (3.80-5.40) m/uL Hgb (11.4-16.0) gm/dL Hct (34.0-46.0) % MCV (80.0-100.0) fL MCH (25.0-35.0) pg MCHC (31.0-37.0) g/dL RDW (11.5-15.5) % Plt Count (150-450) k/uL MPV Neutrophils % % Lymphocytes % % Monocytes % % Eosinophils % % Basophils % % Neutrophils # (1.3-7.7) k/uL Lymphocytes # (1.0-4.8) k/uL Monocytes # (0-1.0) k/uL Eosinophils # (0-0.7) k/uL Basophils # (0-0.2) k/uL Hypochromasia Anisocytosis PT (9.0-12.0) sec INR (<1.2) APTT (22.0-30.0) sec Sodium 133 L (137-145) mmol/L Potassium 4.4 (3.5-5.1) mmol/L Chloride 91 L (98-107) mmol/L Carbon Dioxide 36 H (22-30) mmol/L Anion Gap 6 mmol/L BUN 18 H (7-17) mg/dL Creatinine 0.73 (0.52-1.04) mg/dL Est GFR (CKD-EPI)AfAm >90 (>60 ml/min/1.73 sqM) Est GFR (CKD-EPI)NonAf 81 (>60 ml/min/1.73 sqM) Glucose 93 (74-99) mg/dL Calcium 7.9 L (8.4-10.2) mg/dL Total Bilirubin 0.5 (0.2-1.3) mg/dL AST 28 (14-36) U/L ALT 18 (4-34) U/L Alkaline Phosphatase 111 (38-126) U/L Troponin I <0.012 (0.000-0.034) ng/mL Total Protein 5.3 L (6.3-8.2) g/dL Albumin 2.3 L (3.5-5.0) g/dL Lipase 27 (23-300) U/L Stool Occult Blood Positive H (Negative) Blood Type Blood Type Confirm Blood Type Recheck Bld Type Recheck Status Antibody Screen Spec Expiration Date 02/03/22 Range/Units 15:30 WBC (3.8-10.6) k/uL RBC (3.80-5.40) m/uL Hgb (11.4-16.0) gm/dL Hct (34.0-46.0) % MCV (80.0-100.0) fL MCH (25.0-35.0) pg MCHC (31.0-37.0) g/dL RDW (11.5-15.5) % Plt Count (150-450) k/uL MPV Neutrophils % % Lymphocytes % % Monocytes % % Eosinophils % % Basophils % % Neutrophils # (1.3-7.7) k/uL Lymphocytes # (1.0-4.8) k/uL Monocytes # (0-1.0) k/uL Eosinophils # (0-0.7) k/uL Basophils # (0-0.2) k/uL Hypochromasia Anisocytosis PT (9.0-12.0) sec INR (<1.2) APTT (22.0-30.0) sec Sodium (137-145) mmol/L Potassium (3.5-5.1) mmol/L Chloride (98-107) mmol/L Carbon Dioxide (22-30) mmol/L Anion Gap mmol/L BUN (7-17) mg/dL Creatinine (0.52-1.04) mg/dL Est GFR (CKD-EPI)AfAm (>60 ml/min/1.73 sqM) Est GFR (CKD-EPI)NonAf (>60 ml/min/1.73 sqM) Glucose (74-99) mg/dL Calcium (8.4-10.2) mg/dL Total Bilirubin (0.2-1.3) mg/dL AST (14-36) U/L ALT (4-34) U/L Alkaline Phosphatase (38-126) U/L Troponin I (0.000-0.034) ng/mL Total Protein (6.3-8.2) g/dL Albumin (3.5-5.0) g/dL Lipase (23-300) U/L Stool Occult Blood (Negative) Blood Type Blood Type Confirm O Positive Blood Type Recheck Bld Type Recheck Status Antibody Screen Spec Expiration Date Disposition Clinical Impression: GI bleed Narrative: Stable anemia Disposition: OTHER INSTITUTION NOT DEFINED Condition: Stable Is patient prescribed a controlled substance at d/c from ED?: No Referrals: Avery Prakash MD [Primary Care Provider] - 1-2 days Time of Disposition: 17:17 - Out of Hospital Transfer - Req. Specs Out of Hospital Transfer - Requested Specifics: Other Emergency Center ([facility])
[2022-02-03 16:12] LABS: INR 1.2 (<1.2); Partial Thromboplastin Time 31.9 sec (22.0-30.0); Prothrombin Time 12.6 sec (9.0-12.0)
[2022-02-03 16:18] LABS: ALT 18 U/L (4-34); AST 28 U/L (14-36); African American GFR (CKD) >90 (>60 ml/min/1.73 sqM); Albumin 2.3 g/dL (3.5-5.0); Alkaline Phosphatase 111 U/L (38-126); Anion Gap 6 mmol/L; Blood Urea Nitrogen 18 mg/dL (7-17); Calcium 7.9 mg/dL (8.4-10.2); Carbon Dioxide 36 mmol/L (22-30); Chloride 91 mmol/L (98-107); Glucose 93 mg/dL (74-99); Lipase 27 U/L (23-300); Non-African American GFR(CKD) 81 (>60 ml/min/1.73 sqM); Potassium 4.4 mmol/L (3.5-5.1); Sodium 133 mmol/L (137-145); Total Bilirubin 0.5 mg/dL (0.2-1.3); Total Protein 5.3 g/dL (6.3-8.2)
[2022-02-03 16:20] LABS: Anisocytosis Slight; Basophils # (A) 0.1 k/uL (0-0.2); Basophils % (A) 0 %; Eosinophils # (A) 0.2 k/uL (0-0.7); Eosinophils % (A) 2 %; HCT 33.2 % (34.0-46.0); HGB 10.4 gm/dL (11.4-16.0); Hypochromasia Slight; Lymphocytes # (A) 1.7 k/uL (1.0-4.8); Lymphocytes % (A) 12 %; MCHC 31.4 g/dL (31.0-37.0); MCV 92.5 fL (80.0-100.0); Mean Platelet Volume 7.9; Monocytes # (A) 0.8 k/uL (0-1.0); Monocytes % (A) 6 %; Neutrophils # (A) 10.6 k/uL (1.3-7.7); Neutrophils % (A) 78 %; Platelet Count 668 k/uL (150-450); RBC 3.59 m/uL (3.80-5.40); RDW 17.4 % (11.5-15.5); WBC 13.6 k/uL (3.8-10.6)
[2022-02-03] MEDS ORDERED: PANTOPRAZOLE 40 MG/10 ML VIAL IVP STA (16:58)
[2022-02-03] MEDS ORDERED: SODIUM CHLORIDE 0.9% 500 ML 500 ML IV ONE (16:58)
[2022-02-03 17:33] VITALS: BP 107/61; PULSE 70
== END 2022-02-03 20:55 | disposition other institution (70) ==
LOC: EC 15:02
DX: K92.2 Gastrointestinal hemorrhage, unspecified (principal); I11.0 Hypertensive heart disease with heart failure; E11.9 Type 2 diabetes mellitus without complications; J45.909 Unspecified asthma, uncomplicated; I50.9 Heart failure, unspecified; J98.9 Respiratory disorder, unspecified; E07.9 Disorder of thyroid, unspecified; Z79.51 Long term (current) use of inhaled steroids; Z79.890 Hormone replacement therapy; Z86.711 Personal history of pulmonary embolism; Z79.82 Long term (current) use of aspirin; Z79.01 Long term (current) use of anticoagulants; Z79.899 Other long term (current) drug therapy; Z88.0 Allergy status to penicillin; Z88.5 Allergy status to narcotic agent
CPT/HCPCS: 96374 ×2; 99285 ×2; 36415; 93005; 86900; 86901; 80053; 83690; 84484; 85025; 85610; 85730; 86850; 82272; C9113